=== PATIENT | male | born 1955 | race Caucasian/White ===

== ENCOUNTER 2024-12-11 16:40 | Emergency (ER) | payer MEDICARE, MEDICAID, SELFPAY ==
[2024-12-11 16:42] VITALS: BP 150/89; PULSE 83; RESP 20; TEMP 36.6; O2SAT 92
[2024-12-11 17:02] VITALS: PULSE 108; RESP 16; O2SAT 97
--- NOTE | 2024-12-11 17:33 | PC.NURSE ---
PT [facility]DIAA FROM [facility], FOR SEIZURE. PT HAS KNOOWN HX OF SEIZURES AND ON MEDICATION FOR THEM. PT IS GCS 15 UPON ASSUMPTION OF CARE, SEIZURE PRECAUTIONS INITIATED.
--- NOTE | 2024-12-11 17:44 | XR_ITS ---
Examination: AP chest single view TECHNIQUE: AP portable semiupright chest single view Date and time: December 11, 2024 1751 hours INDICATIONS: Seizure today. FINDINGS: Left base pneumonia retrocardiac, obscuring detail left hemidiaphragm Mild elevation right hemidiaphragm Subsegmental atelectasis right base Mild prominence left ventricle Mild vascular congestion Impression: Left base pneumonia, consider aspiration pneumonia
--- NOTE | 2024-12-11 17:44 | EKG_ITS ---
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
--- NOTE | 2024-12-11 17:45 | PD.EDSEIZ ---
ED Seizures RME/HPI General Chief Complaint: Seizure Stated Complaint: SIEZURE Time Seen by Provider: 12/11/24 16:49 Arrival date/time: 12/11/24 16:40 RME / HPI RME / HPI Narrative: 69-year-old male patient came in for evaluation regarding witnessed seizure. Apparently patient was sitting on a chair and tonic-clonic seizure lasting for few seconds, and patient fell forward. And patient developed forced ictal confusion. Patient does not remember what happened. When the EMS arrived patient is already alert and oriented x 3. On my evaluation patient is alert oriented x 3, told me that has been taking his seizure medication with good compliance. Patient complaining of posterior neck pain and headache. Patient denies any upper or lower extremity numbness or weakness. Denies any other complaints. Related Data Allergies Allergy/AdvReac Type Severity Reaction Status Date / Time No Known Allergies Allergy Verified 12/11/24 19:22 Review of Systems Review of Systems Narrative Review of Systems: Review of system reviewed and within normal limits except mentioned in HPI ED Exam Narrative Physical exam: VITAL SIGNS: Reviewed. GENERAL APPEARANCE: Alert and interactive, follows commands, no acute distress, HEAD AND FACE: Non-traumatic. ENT: PERRL, pink conjunctivitis, eyelid no trauma, Mucous membrane moist. NECK: Supple, posterior neck tenderness, midline neck tenderness, CHEST: No tenderness, no crepitus, no paradoxical movement, no retractions. LUNGS: Clear, well ventilated, symmetric, no rales, no wheezing, no ronchi, no stridor, good breath sounds bilaterally. HEART: Regular rate, regular rhythm, no murmur, no gallops. ABDOMEN: Soft, positive bowel sounds, nondistended, no guarding, nontender, no rebound, no masses, RECTAL: Deferred. GENITAL: Deferred. NEUROLOGICAL: Gross motor function intact sensory function intact, Appropriate for age. MUSCULOSKELETAL: low back nontender, full range of motion. EXTREMITIES: Nontender, full range of motion. SKIN: Color pink, dry, no rash, no lacerations, no abrasions, no contusions. LYMPHATICS: Deferred. Course Quality Measures none Orders Category Date Time Status CT Screening NOW Care 12/11/24 22:38 Completed EKG (ED ONLY) *Do not use* NOW Care 12/11/24 17:44 Completed Insert IV NOW Care 12/11/24 19:29 Completed Miscellaneous Nursing Order NOW Care 12/11/24 22:[address] angio carotid w head w Stat Exams 12/11/24 22:[address] cervical spine wo con Stat Exams 12/11/24 17:[address] head/brain wo con Stat Exams 12/11/24 17:48 Completed EKG (ED Only) Stat Exams 12/11/24 17:44 Draft XR chest 1V Stat Exams 12/11/24 17:44 Completed CBC Stat Lab 12/11/24 18:01 Completed Comprehensive Metabolic Panel Stat Lab 12/11/24 18:01 Completed Lactate (Lactic Acid) Stat Lab 12/11/24 18:01 Completed Partial Thromboplastin Time Stat Lab 12/11/24 18:01 Completed Path Review Blood Smear Stat Lab 12/11/24 18:01 Completed UA, C/S IF [Urinalysis, C/S if Indicated] Stat Lab 12/11/24 19:16 Completed Urine Culture Stat Lab 12/11/24 19:16 Received Morphine Inj Med 12/11/24 19:31 Discontinued 4 mg IVP X1 ONE Ondansetron Inj [Zofran Inj] Med 12/11/24 19:31 Discontinued 4 mg IVP X1 ONE cefTRIAXone/D5w 1gm IV premix [Rocephin/D5w 1gm IV Med 12/11/24 23:05 Discontinued premix] 1 gm in 50 ml IV NOW levETIRAcetam INJ [Keppra Inj] Med 12/11/24 21:58 Discontinued 1,000 mg IVP X1 ONE Vital Signs Vital signs: Vital Signs Temperature 97.9 F 12/11/24 16:42 Pulse Rate 83 12/11/24 16:42 Respiratory Rate 20 12/11/24 16:42 Blood Pressure 150/89 H 12/11/24 16:42 Pulse Oximetry (%) 92 L 12/11/24 16:42 Oxygen Delivery Method Room Air 12/11/24 16:42 Seizure MDM Narrative MDM Narrative:: 69-year-old male patient came in for evaluation regarding witnessed seizure. Apparently patient was sitting on a chair and tonic-clonic seizure lasting for few seconds, and patient fell forward. And patient developed forced ictal confusion. Patient does not remember what happened. When the EMS arrived patient is already alert and oriented x 3. On my evaluation patient is alert oriented x 3, told me that has been taking his seizure medication with good compliance. Patient complaining of posterior neck pain and headache. Patient denies any upper or lower extremity numbness or weakness. Denies any other complaints. Patient was placed on a hard collar right away. Patient was also given 1 g Keppra IV morphine and Zofran Clinically there is no neurologic deficit from neck down. CT scan of the head came back unremarkable. CT scan of the neck showed Acute fractures lateral mass of C1 extending to the anterior ring of C1 without significant displacement Plan of care discussed with the patient including transfer to higher level of care for C1 fracture Spoke with neurosurgeon from [facility], and told to order for CT angiogram of the head and neck to rule out vascular injury, according to the neurosurgeon, patient is nonsurgical candidate and the fracture is stable Care transferred to Dr. Burger for final disposition Patient data External records reviewed:: None Clinical information provided by:: patient and EMS Social determinants that could affect healthcare access:: none Patient has the following chronic illnesses:: Seizure disorder How is presenting disease/condition affected by chronic disease/condition?: caused by Evaluation data The following diagnostics were reviewed and interpreted by me:: lab results, radiology exam(s) and EKG tracing(s) Lab and/or radiology exams considered but not ordered:: None Interpretation Summary: EKG showed sinus rhythm, ventricular to 71 bpm, no ST segment ovation depression noted. Medications / Prescriptions Medications or Prescriptions considered but not ordered:: None Medication administrations:: Medication Administration History Discontinued Medications Ceftriaxone Sodium/Dextrose (Rocephin/D5w 1gm Iv Premix) 1 gm in 50 mls @ 100 mls/hr IV NOW ONE Stop: 12/11/24 23:34 Last Infusion: 12/11/24 23:49 Dose: Infused Documented By: Admin: 12/11/24 23:12 Dose: 100 mls/hr Documented By: BD Levetiracetam (Levetiracetam Inj 100 Mg/Ml Vial 5ml) 1,000 mg IVP X1 ONE Stop: 12/11/24 21:59 Last Admin: 12/11/24 22:15 Dose: 1,000 mg Documented By: BD Morphine Sulfate (Morphine Sulf Inj 10 Mg/Ml Vial) 4 mg IVP X1 ONE Stop: 12/11/24 19:32 Last Admin: 12/11/24 19:43 Dose: 4 mg Documented By: BD Ondansetron HCl (Ondansetron Inj 2 Mg/Ml Inj 2 Ml) 4 mg IVP X1 ONE; Protocol Stop: 12/11/24 19:32 Last Admin: 12/11/24 19:42 Dose: 4 mg Documented By: BD Morphine Caitie Franks Consultations Consultation(s) initiated? (list below): No Diagnosis Seizure Differential Diagnosis: other (Fall, breakthrough seizure, posterior neck pain) Most likely diagnosis given after review of the tests above:: C1 fracture, breakthrough seizure Admission Indicated Admission indicated?: not indicated Admission Request Was there a request for admission?: No Disposition Plan Disposition Plan: Transfer Discharge Plan Plan Patient Disposition: [facility] Facility Pt Being Transferred to: [facility] Service Needed for Transfer: Neurosurgery Prescriptions/Referrals Referrals: Monty Paulson MD [Primary Care Provider] - In 1 week Problem List Clinical Impression: C1 cervical fracture, Breakthrough seizure, Fall Patient/Caregiver Discharge Instructions Print Language: Kinyarwanda Stand Alone Forms: Clara Award Info., Patient Portal Info Letter
--- NOTE | 2024-12-11 17:48 | XR_ITS ---
Examination: CT brain head without contrast. 2-D sagittal coronal reconstructions Date and time of exam:December 11, 2024 1809 hours INDICATIONS: Patient fell today with the head, head pain CTDI: vol (mGy):56.5 DLP: (mGycm):1209 Technique: Multiple CT axial sections of the brain have been obtained, 5 mm slice thickness. Contrast has not been administered. 2-D sagittal, coronal reconstructions have been obtained Low dose protocols were performed. One or more of the following dose reduction techniques were used; automated exposure control, adjustment of the mA and/or KV according to patient size, use of iterative reconstruction technique. Findings: No significant ventricular enlargement. Intra-axial or extra-axial hemorrhage density is not seen. No mass effect or midline shift Basal cisterns are not remarkable. Fourth ventricle is midline. Cranial vault intact. Impression: Negative for acute hemorrhage, mass effect or midline shift Please see the CT cervical spine report today
--- NOTE | 2024-12-11 17:48 | XR_ITS ---
Examination: CT cervical spine without contrast 2-D sagittal reconstructions 2-D coronal reconstructions 3-D reconstructions. Exam date and time:December 11, 2024 1814 hours INDICATIONS: Ground-level fall today with injury to the neck, neck pain CTDI:vol (mGy) 11.4 DLP: (mGycm) 293 Technique: Multiple 2 mm axial sections of the cervical spine have been obtained. The coronal and sagittal reconstructions have been obtained. 3-D reconstructions have been obtained. Low dose protocols were performed. One or more of the following dose reduction techniques were used; automated exposure control, adjustment of the mA and/or KV according to patient size, use of iterative reconstruction technique. Findings: Fracture of the lateral mass of C1, axial image 39, without displacement This fracture extends to the anterior ring of C1 axial image 32 No cervical vertebral body compression fracture Alignment of the vertebral bodies is satisfactory No bone fragments in the canal Alignment of the posterior spinous processes intact IMPRESSION: Acute fractures lateral mass of C1 extending to the anterior ring of C1 without significant displacement
[2024-12-11 18:09] LABS: Lactate (Lactic Acid) 1.4 mMol/L (0.4-2.0)
[2024-12-11 18:14] LABS: Basophils % (Auto) 0 % (0-2.5); Eosinophils % (Auto) 0 % (0-10); Hematocrit 36.2 % (41.0-53.0); Hemoglobin 12.7 g/dL (13.5-16.0); Immature Granulocytes % (Auto) 0 % (0-0); Immature Granulocytes Auto 0.03 Thou/mm3 (0.00-0.00); Lymphocytes # (Auto) 5.8 Thou/mm3 (1.0-4.8); Lymphocytes % (Auto) 54 % (10-50); Mean Corpuscular HGB Conc 35.1 g/dl (31.0-37.0); Mean Corpuscular Hemoglobin 32.3 pg (25.0-35.0); Mean Corpuscular Volume 92 fL (80-100); Monocytes # (Auto) 0.7 Thou/mm3 (0.0-0.8); Monocytes % (Auto) 6 % (0-12); Neutrophils # (Auto) 4.3 Thou/mm3 (1.8-7.7); Neutrophils % (Auto) 40 % (37-80); Nucleated Red Blood Cell % 0 /100 WBC (0); Platelet Count 142 Thou/mm3 (140-440); RDW Standard Deviation 46.9 fL (35.1-43.9); Red Blood Count 3.93 Miln/mm3 (4.50-5.90); White Blood Count 10.9 Thou/mm3 (3.8-10.6)
[2024-12-11 18:27] LABS: Partial Thromboplastin Time 27.3 Seconds (22.0-36.0)
[2024-12-11 18:30] LABS: Alanine Aminotransferase 27 U/L (10-49); Albumin, Serum 3.8 gm/dL (3.4-4.8); Albumin/Globulin Ratio 1.5 (1.2-2.2); Alkaline Phosphatase 112 U/L (46-116); Anion Gap 5 (7-16); Aspartate Amino Transferase 29 U/L (0-34); BUN/Creatinine Ratio 11 Ratio (12-20); Bilirubin,Total 0.3 mg/dL (0.3-1.2); Blood Urea Nitrogen 11 mg/dL (9-23); Calcium 8.5 mg/dL (8.3-10.6); Calcium (Corrected) 8.7 mg/dL (8.5-10.1); Carbon Dioxide 28.7 mMol/L (20.0-31.0); Chloride 98 mMol/L (98-107); Globulin 2.5 gm/dL (2.3-3.5); Glucose 120 mg/dL (74-106); Osmolality,Calculated 264 (275-295); Potassium 4.7 mMol/L (3.4-5.1); Sodium 132 mMol/L (136-145); Total Protein 6.3 gm/dL (5.7-8.2); eGFR > 60 See Note
[2024-12-11 18:48] VITALS: BP 141/101; PULSE 75; RESP 18; TEMP 36.4; O2SAT 99
[2024-12-11 19:19] LABS: Path Review Blood Smear Sent to Pathologist
[2024-12-11 19:27] LABS: Collection Type, Urine Clean Catch
--- NOTE | 2024-12-11 19:31 | PC.NURSE ---
pt complaining 9/10 pain in neck advised direct mail clerk denise
[2024-12-11 19:34] LABS: Bacteria,Urine 1+; Bilirubin,Urine Negative (Negative); Blood,Urine Negative (Negative); Clarity,Urine Clear (Clear/Hazy); Color,Urine Colorless (Lt Yel-Yel); Glucose, Urine Negative (Negative); Hyaline Casts,Urine 1 /hpf (0-1); Ketones,Urine Negative (Negative); Leukocyte Esterase,Urine Positive (Negative); Nitrite,Urine Negative (Negative); PH,Urine 6.5 (5.0-7.0); Protein,Urine Negative (Neg - Trace); RBC,Urine 2 /hpf (0-3); Specific Gravity,Urine 1.012 (1.001-1.035); Squamous Epithelial Cell,Urine < 1 /hpf (0-5); Urobilinogen,Urine Negative mg/dL (0.0-1.0); WBC,Urine 26 /hpf (0-5)
[2024-12-11] MEDS: ONDANSETRON INJ 2 MG/ML INJ 2 ML 4 MG IVP (19:42)
[2024-12-11 19:43] LABS: Culture Indicated,Urine Yes
[2024-12-11] MEDS: MORPHINE SULF INJ 10 MG/ML VIAL 4 MG IVP (19:43)
[2024-12-11 20:17] VITALS: BP 124/83; PULSE 60; RESP 18; TEMP 36.4; O2SAT 99
[2024-12-11 22:00] VITALS: BP 131/79; PULSE 58; RESP 11; TEMP 36.9; O2SAT 96
--- NOTE | 2024-12-11 22:04 | PC.NURSE ---
2199 daniela contacted pkt sent, louis walker speaking with tn.
[2024-12-11] MEDS: levETIRAcetam INJ 100 MG/ML VIAL 5ML 1000 MG IVP (22:15)
--- NOTE | 2024-12-11 22:49 | PD.EDADDENDU ---
Emergency Room Addendum <Sandra Bianchi - Last Filed: 12/11/24 23:39> Addendum Narrative: 2300: Care assumed from [facility] (emergency mid-level provider). Past medical, surgical, social and family history reviewed. Vitals and home medications reviewed. Results and treatment plan discussed. I will assume the care of the patient at this time and will follow the patient, pending transfer. 2246: 69 y/o male with Hx of Epilepsy presents to ED ? seizure at home causing him to fall forward on face and on his way to ED c/o neck pain. Scanned brain and neck. Head/Brain CT is unremarkable. Neck CT shows acute fractures lateral mass of C1 extending to the anterior ring of C1 w/o significant displacement. 2249: Spoke with Dr.l Martins at [facility]. Dr. Martins made aware of the patient?s HPI, PMHx, lab and/or radiology results. Discussed treatment plan and accepted patient for transfer, ED to ED. <Lu Burger MD - Last Filed: 12/11/24 23:21> Addendum Narrative: 2044: Care assumed from [facility] (emergency mid-level provider). Past medical, surgical, social and family history reviewed. Vitals and home medications reviewed. Results and treatment plan discussed. I will assume the care of the patient at this time and will follow the patient, pending transfer. 2046: Patient is GCS 15, has a history of epilepsy, usually speaks with slow slurred speech per the patient. 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 He takes phenobarbital has been taking his medications as prescribed. Despite this had a breakthrough seizure resulting in him landing face forward hitting his head resulting in neck pain. Came in by ambulance. Prior provider evaluated patient ordered labs CT brain, CT cervical spine, placed patient in c-collar. Labs without any acute significant hematologic or metabolic abnormality. Urinalysis with evidence of infection. Provided antibiotics here. Patient does not have any allergies to medications. CT brain unremarkable, CT cervical spine shows a C1 fracture. On my evaluation, patient hemodynamically stable not in distress, pain well-controlled. Has intact sensation and strength in all 4 extremities. No difficulty breathing. Patient in a c-collar, and spinal precautions. Advised patient not to move given his fracture. Prior provider attempted to transfer patient spoke with [facility] requested CT angio of the neck. Prior provider also spoke to [facility] that requested that we reach out to other facilities given that they are infected at this time. We will reach out to [facility]. Patient is not on any blood thinners. Patient usually takes 500keppra po bid, phenobarbital 64.8 mg p.o. nightly for seizures. Also takes aripiprazole 10 mg p.o. daily. Patient states that he took his Keppra and phenobarbital today. Spoke to the nurse at the retirement where he lives at her name is Doris [phone], confirmed his medications, states that he usually ambulates with a walker has been having a hard time walking at baseline and has been working with physical therapy. Per Doris it is unclear why patient has difficulties with ambulation however has been making improvements with physical therapy. Prior to the breakthrough seizure patient had been doing fine. Patient has been at this retirement for 2 months and had not had a breakthrough seizure up until today. 2250: I spoke with Dr. Martins at [facility] accepted patient, ED to ED.
--- NOTE | 2024-12-11 22:54 | PC.NURSE ---
THIS PT IS ACCEPTED TO [facility] BY DR. CORCORAN. THIS IS A ER:ER TRANSFER AND NUMBER FOR REPORT IS [phone]. JESSIKA WAS THE FACILITY REP I SPOKE WITH FOR ACCEPTING INFORMATION.
[2024-12-11 23:00] VITALS: BP 108/73; PULSE 111; RESP 12; TEMP 36.9; O2SAT 96
[2024-12-11] MEDS: cefTRIAXone/D5w 1gm IV premix 1 GM/50 ML BAG IV (23:12)
== END 2024-12-12 00:33 | disposition short-term general hospital (02) ==
PROVIDERS: Nurse Practitioner Family; Emergency Provider Emergency Medicine; PCP Family Medicine
DX: G40.909 Epilepsy, unspecified, not intractable, without status epilepticus (principal); S12.041A Nondisplaced lateral mass fracture of first cervical vertebra, initial encounter for closed fracture; W18.30XA Fall on same level, unspecified, initial encounter; R51.9 Headache, unspecified; R94.31 Abnormal electrocardiogram [ECG] [EKG]
CPT/HCPCS: 36415; 70450; 71045; 72125; 80053; 81001; 83605; 85025; 85730; 87077; 87086; 87186; 93005; 96365; 96375; 99285; J0696; J1953; J2270; J2405

== ENCOUNTER → 2025-02-10 | Outpatient (CLI) | payer MEDICARE, MEDICAID, SELFPAY ==
--- NOTE | 2025-02-10 10:17 | XR_ITS ---
EXAMINATION: Cervical spine, 5 views Technique: Cervical spine AP, AP odontoid, lateral, bilateral obliques, 5 views Exam date and time: February 10, 2025 1024 hours INDICATIONS: CT cervical spine December 11, 2024 acute fracture lateral mass C1 extending to the anterior ring of C1 without significant displacement FINDINGS: Satisfactory alignment cervical vertebral bodies on the lateral view The odontoid appears intact Satisfactory alignment of the posterior spinous processes IMPRESSION: Recommend CT scan cervical spine follow-up to best assess stability and healing of C1 fractures noted on the CT cervical spine December 11, 2024
== END | disposition home or self-care (01) ==
PROVIDERS: PCP Family Medicine; Referring Provider Family Medicine; Visit Provider Family Medicine
DX: S12.000A Unspecified displaced fracture of first cervical vertebra, initial encounter for closed fracture (principal); X58.XXXA Exposure to other specified factors, initial encounter
CPT/HCPCS: 72050

== ENCOUNTER 2025-03-12 07:19 | Emergency (ER) | payer MEDICARE, MEDICAID, SELFPAY ==
[2025-03-12 07:22] VITALS: PULSE 98; RESP 18; O2SAT 99; BMI 37.6
--- NOTE | 2025-03-12 07:31 | EKG_ITS ---
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
[2025-03-12 07:32] VITALS: BP 125/80; PULSE 68; RESP 18; TEMP 36.5; O2SAT 97
[2025-03-12 07:49] VITALS: PULSE 74
--- NOTE | 2025-03-12 07:49 | XR_ITS ---
Examination: CT cervical spine without contrast 2-D sagittal reconstructions 2-D coronal reconstructions 3-D reconstructions. Exam date and time:March 12, 2025 0831 hours INDICATIONS: History C1 fracture December 11, 2024, fracture lateral mass of C1 extending into the anterior ring of C1 December 11, 2024 CTDI:vol (mGy) 19.2 DLP: (mGycm) 155 Technique: Multiple 2 mm axial sections of the cervical spine have been obtained. The coronal and sagittal reconstructions have been obtained. 3-D reconstructions have been obtained. Low dose protocols were performed. One or more of the following dose reduction techniques were used; automated exposure control, adjustment of the mA and/or KV according to patient size, use of iterative reconstruction technique. Findings: Partial healing fracture anterior ring C1, axial image 26, the fracture extending into the lateral mass of C1 axial image 28 Stable alignment No vertebral body compression fracture Satisfactory alignment cervical vertebral bodies as well as posterior spinous processes IMPRESSION: Partial healing fractures anterior ring C1 on the right, the fracture extending into the lateral mass of C1 on the right, stable alignment
--- NOTE | 2025-03-12 07:49 | XR_ITS ---
Examination: AP chest single view Technique one AP portable semiupright chest single view Date and time: March 12, 2025 0755 hrs., Comparison 12/11/2024 Indications: Ground-level fall today with coughing and chest pain Findings: Left infrahilar opacity consistent with pneumonia Mild to moderate elevation right hemidiaphragm No pneumothorax Normal heart size Thoracic upper dextroscoliosis thoracolumbar levoscoliosis Clavicles ribs appear intact Impression: Suspicious for left infrahilar pneumonia
--- NOTE | 2025-03-12 07:49 | XR_ITS ---
Examination: CT brain head without contrast. 2-D sagittal coronal reconstructions Date and time of exam:March 12, 2025 0831 hours, comparison December 11, 2024 INDICATIONS: Ground-level fall today with injury to the head, head pain CTDI: vol (mGy):60.9 DLP: (mGycm):1369 Technique: Multiple CT axial sections of the brain have been obtained, 5 mm slice thickness. Contrast has not been administered. 2-D sagittal, coronal reconstructions have been obtained Low dose protocols were performed. One or more of the following dose reduction techniques were used; automated exposure control, adjustment of the mA and/or KV according to patient size, use of iterative reconstruction technique. Findings: No significant ventricular enlargement. Intra-axial or extra-axial hemorrhage density is not seen. No mass effect or midline shift Basal cisterns are not remarkable. Fourth ventricle is midline. Cranial vault intact. Impression: Negative for acute hemorrhage, mass effect or midline shift Please see the CT cervical spine report
[2025-03-12] MEDS: SODIUM CHLORIDE 0.9% 1000 ML 1,000 ML 999 ML IV (08:16)
[2025-03-12] MEDS: levETIRAcetam INJ 100 MG/ML VIAL 5ML 1000 MG IVP (08:17)
[2025-03-12 09:38] LABS: Collection Type, Urine Clean Catch
[2025-03-12 09:39] LABS: Basophils # (Auto) 0.0 Thou/mm3 (0.0-0.2); Basophils % (Auto) 0 % (0-2.5); Eosinophils # (Auto) 0.0 Thou/mm3 (0.0-0.5); Eosinophils % (Auto) 0 % (0-10); Hematocrit 36.6 % (41.0-53.0); Hemoglobin 12.9 g/dL (13.5-16.0); Immature Granulocytes Auto 0.02 Thou/mm3 (0.00-0.00); Lymphocytes # (Auto) 7.2 Thou/mm3 (1.0-4.8); Lymphocytes % (Auto) 61 % (10-50); Mean Corpuscular HGB Conc 35.2 g/dl (31.0-37.0); Mean Corpuscular Hemoglobin 32.1 pg (25.0-35.0); Mean Corpuscular Volume 91 fL (80-100); Monocytes # (Auto) 0.9 Thou/mm3 (0.0-0.8); Monocytes % (Auto) 8 % (0-12); Neutrophils # (Auto) 3.6 Thou/mm3 (1.8-7.7); Neutrophils % (Auto) 31 % (37-80); Nucleated Red Blood Cell # 0.00 Thou/mm3 (0.00-0.00); Nucleated Red Blood Cell % 0 /100 WBC (0); Platelet Count 124 Thou/mm3 (140-440); RDW Standard Deviation 43.3 fL (35.1-43.9); Red Blood Count 4.02 Miln/mm3 (4.50-5.90); White Blood Count 11.8 Thou/mm3 (3.8-10.6)
[2025-03-12 09:43] LABS: Bilirubin,Urine Negative (Negative); Blood,Urine Negative (Negative); Clarity,Urine Clear (Clear/Hazy); Color,Urine Colorless (Lt Yel-Yel); Glucose, Urine Negative (Negative); Hyaline Casts,Urine < 1 /hpf (0-1); Ketones,Urine Negative (Negative); Leukocyte Esterase,Urine Negative (Negative); Nitrite,Urine Negative (Negative); PH,Urine 7.0 (5.0-7.0); Protein,Urine Negative (Neg - Trace); RBC,Urine 1 /hpf (0-3); Specific Gravity,Urine 1.006 (1.001-1.035); Squamous Epithelial Cell,Urine < 1 /hpf (0-5); Urobilinogen,Urine Negative mg/dL (0.0-1.0); WBC,Urine < 1 /hpf (0-5)
[2025-03-12 10:00] LABS: INR 1.0 (0.9-1.3); Prothrombin Time 10.6 Seconds (9.0-12.2)
[2025-03-12 10:06] LABS: Alanine Aminotransferase 22 U/L (10-49); Albumin, Serum 3.8 gm/dL (3.4-4.8); Albumin/Globulin Ratio 1.6 (1.2-2.2); Alkaline Phosphatase 110 U/L (46-116); Anion Gap 8 (7-16); Aspartate Amino Transferase 27 U/L (0-34); BUN/Creatinine Ratio 14 Ratio (12-20); Bilirubin,Total 0.6 mg/dL (0.3-1.2); Blood Urea Nitrogen 11 mg/dL (9-23); Calcium 9.0 mg/dL (8.3-10.6); Calcium (Corrected) 9.2 mg/dL (8.5-10.1); Carbon Dioxide 28.4 mMol/L (20.0-31.0); Chloride 96 mMol/L (98-107); Creatinine (Component) 0.8 mg/dL (0.6-1.3); Estimated Creatinine Clearance 112.4 mL/min (>60); Globulin 2.4 gm/dL (2.3-3.5); Glucose 92 mg/dL (74-106); Osmolality,Calculated 263 (275-295); Potassium 4.4 mMol/L (3.4-5.1); Sodium 132 mMol/L (136-145); Total Protein 6.2 gm/dL (5.7-8.2); eGFR > 60 See Note
--- NOTE | 2025-03-12 11:14 | EDNOTE_ITS ---
ED Seizures RME/HPI General Chief Complaint: Seizure Stated Complaint: SEIZURES Time Seen by Provider: 03/12/25 07:43 Arrival date/time: 03/12/25 07:19 Limitations: no limitations RME / HPI RME / HPI Narrative: 69 year old male with history of seizures presents to the ED BIBA from intermediate for evaluation following a seizure. Per medics, intermediate staff witnessed the seizure and described as tonic-clonic, lasting ~ 1 minute. No falls or injuries reported. retirement staff do report the patient had a ground level fall several months ago and diagnosed with a C1 fracture. State patient has worn a neck brace since. Related Data Allergies Allergy/AdvReac Type Severity Reaction Status Date / Time No Known Allergies Allergy Verified 12/11/24 19:22 Review of Systems Review of Systems Systems Reviewed: All systems reviewed, normal except as documented Past Medical History Past Medical History NEUROLOGIC: Positive Neurological Disorders and Epilepsy OTHER HISTORY: Positive Falls Social History SMOKING STATUS: Never smoker ED Exam General Limitations: Present no limitations General appearance: Present alert and in no apparent distress Head Head exam: Present atraumatic, normocephalic and normal inspection Eye Eye exam: Present normal appearance, PERRL and EOMI ENT ENT exam: Present normal exam, normal oropharynx and mucous membranes moist Neck Neck exam: Present trachea midline and other (Neck brace in place ) Chest Chest inspection: Present normal inspection and symmetric chest wall rise Respiratory Respiratory exam: Present normal lung sounds bilaterally Cardiovascular Cardiovascular exam: Present regular rate, normal rhythm and normal heart sounds Abdominal Exam Abdominal exam: Present soft and normal bowel sounds Extremities Exam Extremities exam: Present normal inspection and full ROM Back Exam Back exam: Present normal inspection and full ROM Neurological Exam Neurological exam: Present alert, oriented X3 and CN II-XII intact Psychiatric Psychiatric exam: Present normal affect and normal mood Skin Skin exam: Present warm, dry, intact and normal color Course Quality Measures none Orders Category Date 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 03/12/25 07:49 Active Continuous Pulse Oximetry NOW Care 03/12/25 07:49 Completed EKG (ED ONLY) *Do not use* NOW Care 03/12/25 07:31 Completed Insert IV NOW Care 03/12/25 07:[address] cervical spine wo con Stat Exams 03/12/25 07:[address] head/brain wo con Stat Exams 03/12/25 07:49 Completed EKG (ED Only) Stat Exams 03/12/25 07:31 Draft XR chest 1V portable Stat Exams 03/12/25 07:49 Completed CBC Stat Lab 03/12/25 09:00 Completed Comprehensive Metabolic Panel Stat Lab 03/12/25 09:00 Completed Prothrombin Time with INR Stat Lab 03/12/25 09:00 Completed Urinalysis Stat Lab 03/12/25 09:35 Completed Urine Culture Stat Lab 03/12/25 09:35 Received Sodium Chloride 0.9% 1000 ml [Ns] 1,000 ml Med 03/12/25 07:49 Discontinued IV 999 mls/hr levETIRAcetam INJ [Keppra Inj] Med 03/12/25 07:49 Discontinued 1,000 mg IVP X1 ONE Oxygen Delivery NOW RT 03/12/25 07:49 Active Vital Signs Vital signs: Vital Signs Temperature 97.7 F 03/12/25 07:32 Pulse Rate 68 03/12/25 07:32 Respiratory Rate 18 03/12/25 07:32 Blood Pressure 125/80 03/12/25 07:32 Pulse Oximetry (%) 97 03/12/25 07:32 Oxygen Delivery Method Room Air 03/12/25 07:32 Pulse ox is 97% on room air which is adequate. Seizure MDM Narrative MDM Narrative:: Lillian Tomlinson am scribing for and in the presence of Dr. Lamas. Patient data External records reviewed:: [facility] previous records (I reviewed ED visit on 12/11/2024 ) and EMS form Clinical information provided by:: patient Social determinants that could affect healthcare access:: none Patient has the following chronic illnesses:: Seizures How is presenting disease/condition affected by chronic disease/condition?: exacerbated by Evaluation data The following diagnostics were reviewed and interpreted by me:: lab results, radiology exam(s) and EKG tracing(s) (EKG @ 7:31 AM sinus rhythm with first degree AV block, rate 68, borderline left axis deviation. ) Lab and/or radiology exams considered but not ordered:: None Interpretation Summary: Ordering Physician: Tad Lamas MD Date of Service: 03/12/25 Procedure(s): CT cervical spine wo con Accession Number(s): [id number] cc: Tad Lamas MD; Harrison Kearney MD~ Examination: CT cervical spine without contrast 2-D sagittal reconstructions 2-D coronal reconstructions 3-D reconstructions. Exam date and time:March 12, 2025 0831 hours INDICATIONS: History C1 fracture December 11, 2024, fracture lateral mass of C1 extending into the anterior ring of C1 December 11, 2024 CTDI:vol (mGy) 19.2 DLP: (mGycm) 155 Technique: Multiple 2 mm axial sections of the cervical spine have been obtained. The coronal and sagittal reconstructions have been obtained. 3-D reconstructions have been obtained. Low dose protocols were performed. One or more of the following dose reduction techniques were used; automated exposure control, adjustment of the mA and/or KV according to patient size, use of iterative reconstruction technique. Findings: Partial healing fracture anterior ring C1, axial image 26, the fracture extending into the lateral mass of C1 axial image 28 Stable alignment No vertebral body compression fracture Satisfactory alignment cervical vertebral bodies as well as posterior spinous processes IMPRESSION: Partial healing fractures anterior ring C1 on the right, the fracture extending into the lateral mass of C1 on the right, stable alignment Dictated By: Harrison Kearney MD Signed By: <Electronically signed by Harrison Kearney MD in OV> 03/12/25 0951 Ordering Physician: Tad Lamas MD Date of Service: 03/12/25 Procedure(s): XR chest 1V portable Accession Number(s): [id number] cc: Tad Lamas MD; Harrison Kearney MD~ Examination: AP chest single view Technique one AP portable semiupright chest single view Date and time: March 12, 2025 0755 hrs., Comparison 12/11/2024 Indications: Ground-level fall today with coughing and chest pain Findings: Left infrahilar opacity consistent with pneumonia Mild to moderate elevation right hemidiaphragm No pneumothorax Normal heart size Thoracic upper dextroscoliosis thoracolumbar levoscoliosis Clavicles ribs appear intact Impression: Suspicious for left infrahilar pneumonia Dictated By: Harrison Kearney MD Signed By: <Electronically signed by Harrison Kearney MD in OV> 03/12/25 0814 Ordering Physician: Tad Lamas MD Date of Service: 03/12/25 Procedure(s): CT head/brain wo [facility] Accession Number(s): [id number] cc: Tad Lamas MD; Harrison Kearney MD~ Examination: CT brain head without contrast. 2-D sagittal coronal reconstructions Date and time of exam:March 12, 2025 0831 hours, comparison December 11, 2024 INDICATIONS: Ground-level fall today with injury to the head, head pain CTDI: vol (mGy):60.9 DLP: (mGycm):1369 Technique: Multiple CT axial sections of the brain have been obtained, 5 mm slice thickness. Contrast has not been administered. 2-D sagittal, coronal reconstructions have been obtained Low dose protocols were performed. One or more of the following dose reduction techniques were used; automated exposure control, adjustment of the mA and/or KV according to patient size, use of iterative reconstruction technique. Findings: No significant ventricular enlargement. Intra-axial or extra-axial hemorrhage density is not seen. No mass effect or midline shift Basal cisterns are not remarkable. Fourth ventricle is midline. Cranial vault intact. Impression: Negative for acute hemorrhage, mass effect or midline shift Please see the CT cervical spine report Dictated By: Harrison Kearney MD Signed By: <Electronically signed by Harrison Kearney MD in OV> 03/12/25 0953 Medications / Prescriptions Medications or Prescriptions considered but not ordered:: None Medication administrations:: Medication Administration History Discontinued Medications Sodium Chloride (Ns) 1,000 mls @ 999 mls/hr IV .Q1H1M ONE Stop: 03/12/25 08:49 Last Infusion: 03/12/25 10:28 Dose: Infused Documented By: Admin: 03/12/25 08:16 Dose: 999 mls/hr Documented By: WILIAM Levetiracetam (Levetiracetam Inj 100 Mg/Ml Vial 5ml) 1,000 mg IVP X1 ONE Stop: 03/12/25 07:50 Last Admin: 03/12/25 08:17 Dose: 1,000 mg Documented By: WILIAM See above Consultations Consultation(s) initiated? (list below): No Diagnosis Seizure Differential Diagnosis: intractable seizure disorder, focal seizure, generalized seizure and epileptic seizure Most likely diagnosis given after review of the tests above:: Epileptic seizure Admission Indicated Admission indicated?: not indicated Admission Request Was there a request for admission?: No Disposition Plan Disposition Plan: Discharge Discharge Attestation Discharge Attestation: The patient and all family members were given an opportunity to ask questions and understood the discharge instructions. Discharge instructions specifically effects, indications for sooner follow up or return to the emergency department, and the expected course of current diagnosis. Patient condition: Stable Discharge Plan Plan Patient Disposition: HOME (Self Care) Patient condition on transfer: Stable Prescriptions/Referrals Referrals: Monty Paulson MD [Primary Care Provider, Family Practice] - In 1 week Problem List Clinical Impression: Epileptic seizure Patient/Caregiver Discharge Instructions Discharge Activity: activity as tolerated Additional Instructions: Continue wearing your cervical collar until you see your physician. Continue your usual medications as prescribed. Print Language: Malay Stand Alone Forms: Clara Award Info., Patient Portal Info Letter
[2025-03-12 11:23] VITALS: BP 149/95; PULSE 88; RESP 16; TEMP 36.6; O2SAT 100
== END 2025-03-12 11:41 | disposition home or self-care (01) ==
PROVIDERS: Emergency Provider Family Medicine; PCP Family Medicine
DX: G40.909 Epilepsy, unspecified, not intractable, without status epilepticus (principal); S09.90XA Unspecified injury of head, initial encounter; S12.040D Displaced lateral mass fracture of first cervical vertebra, subsequent encounter for fracture with routine healing; W19.XXXD Unspecified fall, subsequent encounter; R05.9 Cough, unspecified; I44.0 Atrioventricular block, first degree; I49.1 Atrial premature depolarization; R07.9 Chest pain, unspecified; W18.30XA Fall on same level, unspecified, initial encounter
CPT/HCPCS: 36415; 70450; 71045; 72125; 80053; 81001; 85025; 85610; 87086; 93005; 96361; 96374; 99284; J1953; J7030

== ENCOUNTER 2025-04-01 20:27 | Emergency (ER) | payer MEDICARE, MEDICAID, SELFPAY ==
--- NOTE | 2025-04-01 20:28 | PD.EDSEIZ ---
ED Seizures RME/HPI General Stated Complaint: SEIZURE Time Seen by Provider: 04/01/25 20:47 Arrival date/time: 04/01/25 20:27 RME / HPI RME / HPI Narrative: See [facility] for Dr. Dill's HPI documentation. Related Data Previous Rx's ?Medication ?Instructions ?Recorded levetiracetam 1,000 mg tablet 1,000 mg PO BID #60 tabs 04/01/25 (Keppra) Allergies Allergy/AdvReac Type Severity Reaction Status Date / Time No Known Allergies Allergy Verified 04/01/25 20:55 Review of Systems Review of Systems Systems Reviewed: All systems reviewed, normal except as documented Past Medical History Past Medical History NEUROLOGIC: Positive Neurological Disorders and Epilepsy CARDIAC: Negative Cardiac Disorders, Congestive Heart Failure or Hypertension RESPIRATORY: Negative Chronic Obstructive Pulmonary Disease (COPD) or Asthma GENITOURINARY: Negative Renal Disease ENDOCRINE: Negative Diabetes Mellitus Type 1 or Diabetes Mellitus Type 2 HEMATOLOGIC: Negative Sickle Cell Disease OTHER HISTORY: Positive Falls Social History SMOKING STATUS: Never smoker ED Exam Narrative Physical exam: See [facility] for Dr. Dill's physical exam documentation. Course Quality Measures none Orders Category Date Time Status Bedside COVID-19 Antigen Test NOW Care 04/01/25 20:36 Completed EKG (ED ONLY) *Do not use* NOW Care 04/01/25 20:37 Completed Saline [Insert IV] NOW Care 04/01/25 20:[address] cervical spine wo con Stat Exams 04/01/25 20:[address] head/brain wo con Stat Exams 04/01/25 20:37 Completed EKG (ED Only) Stat Exams 04/01/25 20:37 Draft XR chest 1V portable Stat Exams 04/01/25 20:37 Completed Alcohol, Blood Medical Stat Lab 04/01/25 20:43 Completed BNP [B-Type Natriuretic Peptide] Stat Lab 04/01/25 20:43 Completed Bilirubin,Direct Stat Lab 04/01/25 20:43 Completed CBC Stat Lab 04/01/25 20:43 Completed CMP [Comprehensive Metabolic Panel] Stat Lab 04/01/25 20:43 Completed Drug Screen,Urine Stat Lab 04/01/25 22:42 Completed Influenza A & B Rapid Panel Stat Lab 04/01/25 22:49 Completed Magnesium Stat Lab 04/01/25 20:43 Completed TSH [Thyroid Stimulating Hormone] Stat Lab 04/01/25 20:43 Completed Troponin I Stat Lab 04/01/25 20:43 Completed UA, C/S IF [Urinalysis, C/S if Indicated] Stat Lab 04/01/25 22:42 Completed ACETAMINOPHEN w/COD 300-30 [Tylenol w/Cod #3] Med 04/01/25 20:36 Discontinued 2 tab PO X1 ONE Ketorolac Inj [Toradol Inj] Med 04/01/25 20:36 Discontinued 15 mg IVP X1 ONE Ondansetron Inj [Zofran Inj] Med 04/01/25 20:36 Discontinued 4 mg IVP X1 ONE Sodium Chloride 0.9% 1000 ml [Ns] 1,000 ml Med 04/01/25 20:36 Discontinued IV 999 mls/hr levETIRAcetam INJ [Keppra Inj] Med 04/01/25 20:36 Discontinued 2,000 mg IVP X1 ONE Vital Signs Vital signs: Vital Signs Temperature 96.7 F L 04/01/25 20:33 Pulse Rate 93 04/01/25 20:33 Respiratory Rate 20 04/01/25 20:33 Blood Pressure 153/84 H 04/01/25 20:33 Pulse Oximetry (%) 94 L 04/01/25 20:33 Oxygen Delivery Method Room Air 04/01/25 20:33 Seizure MDM Narrative MDM Narrative:: This section includes all my notes and documentations, including HPI, PE, and ED course. Sage Dill MD HPI: 70-year-old male here to be evaluated after a seizure just [employer]. He has history of seizures. Lives in a nursing home. He was found in bed and active seizure. Has been compliant with his seizure medications. He did not fall out of bed. He wears cervical collar due to recent C1 fracture. No speech or visual impairment. No loss of power in the arms or legs. No other complaints. ROS: All negative except as documented in HPI. Physical Exam: General:? Alert and oriented.? No acute distress.? Eyes:? Conjunctivae and lids clear.? EOMI.? PERRL. ENT:? No signs of head trauma. Neck:? Supple.? No tenderness. Heart:? RRR. Lungs:? No respiratory distress.? Good air movement.? No rhonchi, wheezing, rales.? Chest:? No tenderness. Abdomen:? Soft and nontender.? Normal bowel sounds.? No distension.? No rebound or guarding.? Back:? No tenderness.? Skin:? Warm and dry.? Neuro:? Alert and oriented X 3.? Cranial Nerves II-XII grossly intact.? No peripheral motor deficits. Musculoskeletal:? All major joints and bones are not tender with no limited ROM. I reviewed EMS notes. I reviewed all diagnostic test results. My interpretation of the EKG is sinus rhythm with nonspecific ST-T changes. My interpretation of the chest x-ray is NAD. My review of the CT head report is NAD. My review of the CT cervical spine report is partially healing fracture anterior ring C1. Blood/urine tests unremarkable. COVID/influenza negative. At this point, diagnoses include: Recurrent seizure Stable C1 cervical fracture Treatment here included: Tylenol with Codeine X 2 IV fluid Toradol 15 mg IV Keppra 2000 mg IV Zofran 4 mg IV Patient remained stable. Recommended outpatient management. Based on my best medical judgment, made decision no further evaluation or treatment indicated at this time. Patient understands and agrees to the discharge instructions customized and printed, see below. Discharge Instructions from Dr. Dill printed for you: 1. Increase Keppra to 1000 mg twice daily to prevent recurrent seizures. 2. Wear the neck brace until cleared by a doctor taking care of you. Your C1 neck fracture is stable. 3. See a private doctor on 04/02/2025 for recheck and further care. Ask to review all test results and official radiology reports, to make sure you receive all necessary follow-ups and monitoring. Ask for referral to see neurologist for your recurrent seizures and neck network diagnostic support specialist for your neck fracture. 4. Seek immediate medical care with worsening or with any concerns. Sage Dill MD Patient data External records reviewed:: [facility] previous records (Per chart review, patient was seen here on 03/12/25 for epileptic seizure.) and EMS form Clinical information provided by:: EMS Social determinants that could affect healthcare access:: none Patient has the following chronic illnesses:: epilepsy How is presenting disease/condition affected by chronic disease/condition?: caused by Evaluation data The following diagnostics were reviewed and interpreted by me:: lab results, radiology exam(s) and EKG tracing(s) (My interpretation of the EKG is: Sinus rhythm (91 bpm) with nonspecific ST-T changes. Sage Dill MD) Lab and/or radiology exams considered but not ordered:: none Interpretation Summary: I reviewed all diagnostic test results. My interpretation of the EKG is sinus rhythm with nonspecific ST-T changes. My interpretation of the chest x-ray is NAD. My review of the CT head report is NAD. My review of the CT cervical spine report is partially healing fracture anterior ring C1. Blood/urine tests unremarkable. COVID/influenza negative.. Medications / Prescriptions Medications or Prescriptions considered but not ordered:: none Medication administrations:: Medication Administration History Discontinued Medications Acetaminophen/Codeine Phosphate (Acetaminophen W/Cod 300-30 Tablet) 2 tab PO X1 ONE Stop: 04/01/25 20:37 Last Admin: 04/01/25 21:08 Dose: 2 tab Documented By: DT Sodium Chloride (Ns) 1,000 mls @ 999 mls/hr IV .Q1H1M ONE Stop: 04/01/25 21:36 Last Infusion: 04/01/25 22:09 Dose: Infused Documented By: [email or web address] Admin: 04/01/25 21:08 Dose: 999 mls/hr Documented By: RIA Ketorolac Tromethamine (Ketorolac Inj 30 Mg/Ml Vial) 15 mg IVP X1 ONE Stop: 04/01/25 20:37 Last Admin: 04/01/25 21:07 Dose: 15 mg Documented By: DT Levetiracetam (Levetiracetam Inj 100 Mg/Ml Vial 5ml) 2,000 mg IVP X1 ONE Stop: 04/01/25 20:37 Last Admin: 04/01/25 21:07 Dose: 2,000 mg Documented By: DT Ondansetron HCl (Ondansetron Inj 2 Mg/Ml Inj 2 Ml) 4 mg IVP X1 ONE; Protocol Stop: 04/01/25 20:37 Last Admin: 04/01/25 21:07 Dose: 4 mg Documented By: DT Treatment here included: Tylenol with Codeine X 2 IV fluid Toradol 15 mg IV Keppra 2000 mg IV Zofran 4 mg IV Consultations Consultation(s) initiated? (list below): No Diagnosis Seizure Differential Diagnosis: intractable seizure disorder, focal seizure, generalized seizure and epileptic seizure Most likely diagnosis given after review of the tests above:: Recurrent seizure C1 cervical fracture Admission Indicated Admission indicated?: not indicated Explain why admission is indicated or not indicated:: With significant improvement and no condition needing emergent intervention, there was no indication for admission. Admission Request Was there a request for admission?: No Disposition Plan Disposition Plan: Discharge Discharge Attestation Discharge Attestation: The patient and all family members were given an opportunity to ask questions and understood the discharge instructions. Discharge instructions specifically effects, indications for sooner follow up or return to the emergency department, and the expected course of current diagnosis. Patient condition: Stable Discharge Plan Plan Patient Disposition: HOME (Self Care) Prescriptions/Referrals Prescriptions/Med Rec: New levetiracetam [Keppra] 1,000 mg tablet 1,000 mg PO BID Qty: 60 0RF Referrals: Monty Paulson MD [Primary Care Provider, [facility]] - In 1 week Problem List Clinical Impression: Recurrent seizures, C1 cervical fracture Patient/Caregiver Discharge Instructions Discharge Activity: activity as tolerated Education Materials: ED Seizure, Recurrent (Adult), ED Transverse Process Fracture Additional Instructions: Discharge Instructions from Dr. Dill printed for you: 1. Increase Keppra to 1000 mg twice daily to prevent recurrent seizures. 2. Wear the neck brace until cleared by a doctor taking care of you. Your C1 neck fracture is stable. 3. See a private doctor on 04/02/2025 for recheck and further care. Ask to review all test results and official radiology reports, to make sure you receive all necessary follow-ups and monitoring. Ask for referral to see neurologist for your recurrent seizures and neck network diagnostic support specialist for your neck fracture. 4. Seek immediate medical care with worsening or with any concerns. Print Language: Sao Tomean Stand Alone Forms: Clara Award Info., Patient Portal Info Letter
[2025-04-01 20:33] VITALS: BP 153/84; PULSE 93; RESP 20; TEMP 35.9; O2SAT 94; BMI 29.5
--- NOTE | 2025-04-01 20:37 | EKG_ITS ---
[facility] Test Date: 2025-04-01 Pat Name: FANNY KERR Department: Room: - Gender: Male Phys Ther: : 1955 Requested By: Sage Harvey Order Number: [id number] Reading MD: Sage Harvey Measurements Intervals Seanor Rate: 91 P: 57 SD: 213 QRS: -42 QRSD: 81 T: 48 QT: 339 QTc: 418 Interpretive Statements SINUS RHYTHM WITH FIRST DEGREE AV BLOCK WITH OCCASIONAL SUPRAVENTRICULAR PREMATURE COMPLEXES LEFT AXIS DEVIATION [QRS AXIS < -30] PATTERN CONSISTENT WITH PULMONARY DISEASE Compared to ECG 03/12/2025 07:31:32 No significant changes /store/S0/[id number]/ecg/[id number].pdf
--- NOTE | 2025-04-01 20:37 | XR_ITS ---
Examination: CT brain head without contrast. 2-D sagittal coronal reconstructions Date and time of exam: April 01, 2025, 2153 hours, comparison 03/12/2025 INDICATIONS: Seizures today CTDI: vol (mGy): 57.6 DLP: (mGycm): 1142 Technique: Multiple CT axial sections of the brain have been obtained, 5 mm slice thickness. Contrast has not been administered. 2-D sagittal, coronal reconstructions have been obtained Low dose protocols were performed. One or more of the following dose reduction techniques were used; automated exposure control, adjustment of the mA and/or KV according to patient size, use of iterative reconstruction technique. Findings: No significant ventricular enlargement. Intra-axial or extra-axial hemorrhage density is not seen. No mass effect or midline shift Basal cisterns are not remarkable. Fourth ventricle is midline. Cranial vault intact. Impression: Negative for acute hemorrhage, mass effect or midline shift
--- NOTE | 2025-04-01 20:37 | XR_ITS ---
EXAMINATION: AP chest single view TECHNIQUE: AP portable semiupright chest single view Date and time: April 01, 2025, 210 hours, comparison 03/12/2025 INDICATIONS: Shortness of breath today. FINDINGS: Moderate enlargement left ventricle Pulmonary vascular congestion including central vascular engorgement Early septal edema at the lung bases Prominent osteopenia IMPRESSION: Early CHF
--- NOTE | 2025-04-01 20:37 | XR_ITS ---
Examination: CT cervical spine without contrast 2-D sagittal reconstructions 2-D coronal reconstructions 3-D reconstructions. Exam date and time: April 01, 2025, 2153 hours , Comparison 03/12/2025 INDICATIONS: Seizures today with injury to the neck, neck pain, history of fractures anterior ring C1 on the right extending into the lateral mass C1 CTDI:vol (mGy) 57.6 DLP: (mGycm) 1142 Technique: Multiple 2 mm axial sections of the cervical spine have been obtained. The coronal and sagittal reconstructions have been obtained. 3-D reconstructions have been obtained. Low dose protocols were performed. One or more of the following dose reduction techniques were used; automated exposure control, adjustment of the mA and/or KV according to patient size, use of iterative reconstruction technique. Findings: There is partial healing of the fracture anterior ring C1 extending into the lateral mass C1, axial image 27, no major change in healing compared to the March 12, 2025 exam Satisfactory alignment of cervical vertebral bodies No cervical vertebral body compression fracture No new cervical fracture IMPRESSION: Partially healing fracture anterior ring C1 extending into the lateral mass C1 No new fractures
[2025-04-01 20:53] VITALS: PULSE 85; RESP 14; O2SAT 99
[2025-04-01] MEDS: KETOROLAC INJ 30 MG/ML VIAL 15 MG IVP (21:07)
[2025-04-01] MEDS: levETIRAcetam INJ 100 MG/ML VIAL 5ML 2000 MG IVP (21:07)
[2025-04-01] MEDS: ONDANSETRON INJ 2 MG/ML INJ 2 ML 4 MG IVP (21:07)
[2025-04-01 21:08] LABS: Basophils # (Auto) 0.0 Thou/mm3 (0.0-0.2); Basophils % (Auto) 0 % (0-2.5); Eosinophils # (Auto) 0.0 Thou/mm3 (0.0-0.5); Eosinophils % (Auto) 0 % (0-10); Hematocrit 35.5 % (41.0-53.0); Hemoglobin 12.4 g/dL (13.5-16.0); Immature Granulocytes Auto 0.07 Thou/mm3 (0.00-0.00); Lymphocytes # (Auto) 8.1 Thou/mm3 (1.0-4.8); Lymphocytes % (Auto) 66 % (10-50); Mean Corpuscular HGB Conc 34.9 g/dl (31.0-37.0); Mean Corpuscular Hemoglobin 32.6 pg (25.0-35.0); Mean Corpuscular Volume 93 fL (80-100); Monocytes # (Auto) 0.6 Thou/mm3 (0.0-0.8); Monocytes % (Auto) 5 % (0-12); Neutrophils # (Auto) 3.5 Thou/mm3 (1.8-7.7); Neutrophils % (Auto) 28 % (37-80); Nucleated Red Blood Cell # 0.00 Thou/mm3 (0.00-0.00); Nucleated Red Blood Cell % 0 /100 WBC (0); Platelet Count 143 Thou/mm3 (140-440); RDW Standard Deviation 45.6 fL (35.1-43.9); Red Blood Count 3.80 Miln/mm3 (4.50-5.90); White Blood Count 12.3 Thou/mm3 (3.8-10.6)
[2025-04-01] MEDS: ACETAMINOPHEN w/COD 300-30 TABLET 2 TAB PO (21:08)
[2025-04-01] MEDS: SODIUM CHLORIDE 0.9% 1000 ML 1,000 ML 999 ML IV (21:08)
[2025-04-01 21:19] LABS: Alanine Aminotransferase 51 U/L (10-49); Albumin, Serum 4.0 gm/dL (3.4-4.8); Albumin/Globulin Ratio 1.7 (1.2-2.2); Alcohol, Blood Medical < 3.0 mg/dL (0-10.0); Alkaline Phosphatase 117 U/L (46-116); Anion Gap 9 (7-16); Aspartate Amino Transferase 36 U/L (0-34); BUN/Creatinine Ratio 16 Ratio (12-20); Bilirubin,Direct 0.1 mg/dL (0.0-0.3); Bilirubin,Total 0.3 mg/dL (0.3-1.2); Blood Urea Nitrogen 13 mg/dL (9-23); Calcium 8.8 mg/dL (8.3-10.6); Calcium (Corrected) 8.8 mg/dL (8.5-10.1); Carbon Dioxide 27.0 mMol/L (20.0-31.0); Chloride 95 mMol/L (98-107); Creatinine (Component) 0.8 mg/dL (0.6-1.3); Estimated Creatinine Clearance 98.4 mL/min (>60); Globulin 2.4 gm/dL (2.3-3.5); Glucose 115 mg/dL (74-106); Magnesium 2.0 mg/dL (1.6-2.6); Osmolality,Calculated 263 (275-295); Potassium 4.5 mMol/L (3.4-5.1); Sodium 131 mMol/L (136-145); Thyroid Stimulating Hormone 3.18 uIU/mL (0.55-4.78); Total Protein 6.4 gm/dL (5.7-8.2); Troponin I 0.035 ng/mL (0.0-0.045); eGFR > 60 See Note
[2025-04-01 21:35] LABS: B-Type Natriuretic Peptide 28 pg/mL (0-100)
[2025-04-01 21:40] VITALS: BP 161/101; PULSE 79; RESP 17; TEMP 36.4; O2SAT 95
[2025-04-01 22:54] LABS: Collection Type, Urine Clean Catch; Squamous Epithelial Cell,Urine 0 /hpf (0-5)
[2025-04-01 23:01] LABS: Bilirubin,Urine Negative (Negative); Blood,Urine Negative (Negative); Clarity,Urine Clear (Clear/Hazy); Color,Urine Colorless (Lt Yel-Yel); Culture Indicated,Urine Not Indicated; Glucose, Urine Negative (Negative); Ketones,Urine Negative (Negative); Leukocyte Esterase,Urine Negative (Negative); Nitrite,Urine Negative (Negative); PH,Urine 6.5 (5.0-7.0); Protein,Urine Negative (Neg - Trace); RBC,Urine 2 /hpf (0-3); Specific Gravity,Urine 1.010 (1.001-1.035); Urobilinogen,Urine Negative mg/dL (0.0-1.0); WBC,Urine < 1 /hpf (0-5)
[2025-04-01 23:10] LABS: Amphetamine/Methamp Scrn,U Negative (Negative); Barbiturate Screen,Urine Negative (Negative); Benzodiazepines Screen,Urine Negative (Negative); Benzoylecgonine Screen, Ur Negative (Negative); Fentanyl Screen,Urine Negative (Negative); Opiate Screen,Urine Positive (Negative); THC Screen,Urine Negative (Negative)
[2025-04-01 23:18] LABS: Influenza A Ag Negative; Influenza B Ag Negative
[2025-04-02 03:54] VITALS: BP 159/87; PULSE 99; RESP 18; O2SAT 100
--- NOTE | 2025-04-02 03:55 | PC.NURSE ---
report called to Elie she states they are waiting or the patient. Informed script was in packet.
== END 2025-04-02 03:55 | disposition home or self-care (01) ==
PROVIDERS: Emergency Provider Emergency Medicine; PCP Family Medicine
DX: G40.909 Epilepsy, unspecified, not intractable, without status epilepticus (principal); S12.000D Unspecified displaced fracture of first cervical vertebra, subsequent encounter for fracture with routine healing; I44.0 Atrioventricular block, first degree; R06.02 Shortness of breath; X58.XXXD Exposure to other specified factors, subsequent encounter
CPT/HCPCS: 36415; 70450; 71045; 72125; 80053; 80307; 80320; 81001; 82248; 83735; 83880; 84443; 84484; 85025; 87502; 87811; 93005; 96361; 96374; 96375; 99284; J1885; J1953; J2405; J7030; A9270; G0480

== ENCOUNTER 2025-05-18 09:12 | Inpatient (IN) | payer MEDICARE, MEDICAID, SELFPAY ==
[2025-05-18] VITALS (9 sets, daily range): BP systolic 113–151; BP diastolic 72–94; PULSE 18–75; RESP 15–72; TEMP 35.9–36.8; O2SAT 96–100; BMI 29.5; BMI 39.1
--- NOTE | 2025-05-18 09:23 | PC.NURSE ---
Patient presents to ED via ambulance with c/o seizure, tonic in nature, lasting about 45sec, witnessed by staff at group home. Patient is gcs 15 upon arrival, responsive, following commands. Report obtained from EMS, per staff and EMS neurology is increasing doses of keppra from 500mg to 1000mg. Patient/staff educated on seizure safety and precautions.
--- NOTE | 2025-05-18 09:32 | PD.EDSEIZ ---
ED Seizures RME/HPI General Chief Complaint: Seizure Stated Complaint: SEIZURE Time Seen by Provider: 05/18/25 09:25 Source: patient, EMS and other (Caregiver) Arrival date/time: 05/18/25 09:12 Mode of arrival: EMS Limitations: no limitations RME / HPI complaint: seizure RME / HPI Narrative: Patient is a 70-year-old male with medical history notable for epilepsy, cognitive delay, wheelchair-bound, currently in a c-collar for C1 fracture and was managed nonoperatively, up to the emergency department concerns for breakthrough seizure. Per EMS patient was in his chair, and started having a tonic-clonic seizure. Patient has a history of epilepsy. Per the caregiver at bedside, the patient seizure medications have recently been lowered in dose. His Keppra was decreased from 1500 to 1000 mg. He follows with Dr. Jesus. Patient is been complaining of feeling achy over the last few days and has dysuria. Otherwise denies chest pain shortness of breath abdominal pain melena hematochezia hematuria. Patient did not hit his head did not fall today. No trauma. Caregiver was not aware of why patient is wheelchair-bound however does state that previously he did have an unsteady gait. Related Data Home Medications ?Medication ?Instructions ?Recorded ?Confirmed acetaminophen 500 mg tablet 500 mg PO Q4H PRN fever or pain 05/18/25 05/18/25 albuterol sulfate 90 mcg/actuation 1 puff inhalation Q4H PRN 05/18/25 05/18/25 aerosol inhaler shortness of breath or wheezing benzonatate 100 mg capsule 100 mg PO Q8HR PRN cough 05/18/25 05/18/25 bisacodyl 10 mg rectal suppository 10 mg OH QDAY PRN constipation 05/18/25 05/18/25 cholecalciferol (vitamin D3) 50 50 mcg PO QDAY 05/18/25 05/18/25 mcg (2,000 unit) tablet (Vitamin D3) loratadine 10 mg tablet (Allergy 10 mg PO Q24H 05/18/25 05/18/25 Relief (loratadine)) magnesium hydroxide 400 mg/5 mL 30 ml PO QDAY PRN constipation 05/18/25 05/18/25 oral suspension (Milk of Magnesia) mirabegron 25 mg tablet,extended 25 mg PO QDAY 05/18/25 05/18/25 release 24 hr Previous Rx's ?Medication ?Instructions ?Recorded aripiprazole 5 mg tablet 15 mg (3 x 5 mg) PO QDAY #10 tabs 05/20/25 ibuprofen 600 mg tablet 600 mg PO QDAY #10 tabs 05/20/25 levetiracetam 1,000 mg tablet 500 mg (1/2 x 1,000 mg) PO BID #60 05/20/25 (Keppra) tabs sodium chloride 1,000 mg soluble 1,000 mg PO QDAY #10 tabs 05/20/25 tablet Allergies Allergy/AdvReac Type Severity Reaction Status Date / Time No Known Allergies Allergy Verified 05/18/25 09:21 Review of Systems Review of Systems Systems Reviewed: All systems reviewed, normal except as documented Past Medical History Past Medical History NEUROLOGIC: Positive Neurological Disorders and Epilepsy OTHER HISTORY: Positive Falls Social History SMOKING STATUS: Never smoker ED Exam General Limitations: Present no limitations Head Head exam: Present atraumatic and normocephalic Eye Eye exam: Present normal appearance and PERRL ENT ENT exam: Present normal exam Neck Neck exam: Present normal inspection and other (Patient in a c-collar) Chest Chest inspection: Present normal inspection and symmetric chest wall rise Respiratory Respiratory exam: Present normal lung sounds bilaterally; Absent respiratory distress Cardiovascular Cardiovascular exam: Present regular rate and normal rhythm Abdominal Exam Abdominal exam: Present soft; Absent distention, tenderness, guarding or rebound Extremities Exam Extremities exam: Present normal inspection and full ROM Neurological Exam Neurological exam: Present alert and other (Weakness bilateral lower extremities, strong upper extremities, sensation intact. Per nursing staff this is chronic) Psychiatric Psychiatric exam: Present normal affect Skin Skin exam: Present warm, dry and intact Course Quality Measures none Orders Category Date Time Status Bedside COVID-19 Antigen Test NOW Care 05/18/25 09:32 Completed EKG (ED ONLY) *Do not use* NOW Care 05/18/25 09:38 Completed EKG (ED Only) Stat Exams 05/18/25 09:38 Draft CBC Stat Lab 05/18/25 09:58 Completed CMP [Comprehensive Metabolic Panel] Stat Lab 05/18/25 09:58 Completed Electrolytes, Urine Random Stat Lab 05/19/25 22:19 Completed INR [Prothrombin Time with INR] Stat Lab 05/18/25 09:58 Completed Influenza A & B Rapid Panel Stat Lab 05/18/25 10:15 Completed Osmolality, Serum* Stat Lab 05/18/25 22:16 Completed UA, C/S IF [Urinalysis, C/S if Indicated] Stat Lab 05/18/25 11:06 Completed Urine Chem 10 (Auto) Stat Lab 05/19/25 22:19 Completed Ondansetron Inj [Zofran Inj] Med 05/18/25 11:24 Discontinued 4 mg IVP X1 ONE levETIRAcetam INJ [Keppra Inj] Med 05/18/25 09:32 Discontinued 1,000 mg IVP X1 ONE Vital Signs Vital signs: Vital Signs Pulse Rate 54 L 05/18/25 10:05 Respiratory Rate 19 05/18/25 10:05 Blood Pressure 113/72 05/18/25 10:05 Pulse Oximetry (%) 100 05/18/25 10:05 Oxygen Delivery Method Room Air 05/18/25 10:05 Pulse ox is 100% on room air which is adequate. Seizure MDM Narrative MDM Narrative:: Patient is a 70-year-old male is in the emergency department with concerns for breakthrough seizure. Vital signs and exam as listed. Concern for breakthrough seizure, metabolic derangement, patient is not hypoglycemic given that blood glucose tested by staff on arrival was 136. Concern for breakthrough seizure secondary to medication being down titrated. Patient did not hit his head, no trauma occurred, do not suspect intracranial injury nor other injury given no history of trauma. Patient is neurologically intact and at his baseline. Also complaining of having bodyaches and dysuria. Concern for urinary tract infection viral syndrome. Ordered labs, EKG offered medication for symptom relief. EKG performed today at 1016 in the morning. Interpreted by me. Heart rate 60, prolonged OH 255, normal QT, not a cardiac alert. I do not have a prior for comparison. Labs with evidence of leukocytosis 13.5, no left shift, patient hemoglobin 12.3, sodium 122 previously 132. Chloride 86. No anion gap acidosis, no transaminitis. given patient had a breakthrough seizure and is hyponatremic we will discuss admission with the hospitalist. Ordered urine urine and serum osmole's as well as urine lites. Discussed case with hospitalist. 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 Social determinants that could affect healthcare access:: mental health Patient has the following chronic illnesses:: See MDM How is presenting disease/condition affected by chronic disease/condition?: exacerbated by Evaluation data The following diagnostics were reviewed and interpreted by me:: lab results, radiology exam(s) and EKG tracing(s) Lab and/or radiology exams considered but not ordered:: None Interpretation Summary: See MDM Medications / Prescriptions Medications or Prescriptions considered but not ordered:: None Medication administrations:: Medication Administration History Discontinued Medications Acetaminophen (Acetaminophen 325 Mg Tablet) 650 mg PO Q6H PRN PRN Reason: Fever >100.4 or pain Stop: 06/17/25 12:06 Last Admin: 05/19/25 09:52 Dose: 650 mg Documented By: BRIAN Enoxaparin Sodium (Enoxaparin Sod Inj 40 Mg/0.4 Ml Syringe) 40 mg SC QDAY ARJUN Stop: 06/02/25 08:59 Last Admin: 05/20/25 08:53 Dose: 40 mg Documented By: Admin: 05/19/25 08:14 Dose: 40 mg Documented By: BRIAN Guaifenesin (Guaifenesin Syrup 200 Mg/10 Ml Udc) 100 mg PO X1 ONE; Protocol Stop: 05/20/25 04:33 Last Admin: 05/20/25 04:59 Dose: 100 mg Documented By: SHRUTHI Magnesium Sulfate (Magnesium Sulfate Ivpb) 2 gm in 50 mls @ 25 mls/hr IV X1 ONE Stop: 05/19/25 10:01 Last Infusion: 05/19/25 10:14 Dose: Infused Documented By: Admin: 05/19/25 08:14 Dose: 25 mls/hr Documented By: BRIAN Levetiracetam (Levetiracetam Inj 100 Mg/Ml Vial 5ml) 1,000 mg IVP X1 ONE Stop: 05/18/25 09:33 Last Admin: 05/18/25 10:03 Dose: 1,000 mg Documented By: ALEA Levetiracetam (Levetiracetam Liqd 500 Mg/5 Ml Udc) 500 mg PO BID ARJUN Stop: 06/17/25 20:59 Last Admin: 05/20/25 08:54 Dose: 500 mg Documented By: Admin: 05/19/25 20:34 Dose: 500 mg Documented By: Admin: 05/19/25 08:14 Dose: 500 mg Documented By: Admin: 05/18/25 20:17 Dose: 500 mg Documented By: MAXIMO Melatonin (Melatonin 3 Mg Tablet) 6 mg PO HS ARJUN Stop: 06/17/25 20:59 Last Admin: 05/19/25 20:34 Dose: 6 mg Documented By: Admin: 05/18/25 20:17 Dose: 6 mg Documented By: MAXIMO Midazolam HCl (Midazolam Inj 1 Mg/Ml Vial 2 Ml) 2 mg IVP Q1HR PRN PRN Reason: breakthrough seizure Stop: 05/23/25 12:35 Ondansetron HCl (Ondansetron Inj 2 Mg/Ml Inj 2 Ml) 4 mg IVP X1 ONE; Protocol Stop: 05/18/25 11:25 Last Admin: 05/18/25 11:26 Dose: 4 mg Documented By: HOANG Ondansetron HCl (Ondansetron Inj 2 Mg/Ml Inj 2 Ml) 4 mg IVP Q6H PRN; Protocol PRN Reason: NAUSEA OR VOMITING Stop: 06/17/25 12:06 Last Admin: 05/19/25 12:10 Dose: 4 mg Documented By: Admin: 05/18/25 19:15 Dose: 4 mg Documented By: MAXIMO Pantoprazole Sodium (Pantoprazole 40 Mg Tablet) 40 mg PO QDAY [facility] Stop: 06/18/25 08:59 Last Admin: 05/20/25 08:54 Dose: 40 mg Documented By: Admin: 05/19/25 08:14 Dose: 40 mg Documented By: BRIAN Sodium Chloride (Sodium Chloride 1 Gm Tablet) 1 gm PO X1 ONE Stop: 05/19/25 07:36 Last Admin: 05/19/25 08:14 Dose: 1 gm Documented By: BRIAN Sodium Chloride (Sodium Chloride 1 Gm Tablet) 1 gm PO X1 ONE Stop: 05/19/25 15:54 Last Admin: 05/19/25 16:18 Dose: 1 gm Documented By: BRIAN Sodium Chloride (Sodium Chloride 1 Gm Tablet) 1 gm PO X1 ONE Stop: 05/19/25 19:11 Last Admin: 05/19/25 20:34 Dose: 1 gm Documented By: SHRUTHI Sodium Chloride (Sodium Chloride 1 Gm Tablet) 1 gm PO QDAY [facility] Stop: 06/19/25 08:59 Last Admin: 05/20/25 08:54 Dose: 1 gm Documented By: KIM See above Consultations Consultation(s) initiated? (list below): Yes Consultation #1 (Physician, Specialty, Details): [id number]: I spoke with hospitalist team B for admission. Diagnosis Seizure Differential Diagnosis: intractable seizure disorder, febrile convulsion, focal seizure, generalized seizure and epileptic seizure Most likely diagnosis given after review of the tests above:: Epileptic seizure Body aches Dysuria First degree heart block Acute hyponatremia Nausea Admission Indicated Admission indicated?: indicated Admission Request Was there a request for admission?: Yes Admission Attestation Admission request attestation: Discussed case with Hospitalist service regarding admission. Discussed patients ED course, exam findings, labs, and radiology results. The Hospitalist [agrees] to accept the patient for admission. Disposition Plan Disposition Plan: Admit Critical Care Time Critical Care Time Critical Care Time: Yes Total Critical Care Time (min.): 36 Attestation: Total critical care time: Approximately?36?minutes Due to a high probability of clinically significant, life threatening deterioration, the patient required my highest level of preparedness to intervene emergently and I personally spent this critical care time directly and personally managing the patient. This critical care time included obtaining a history; examining the patient; pulse oximetry; ordering and review of studies; arranging urgent treatment with development of a management plan; evaluation of patient's response to treatment; frequent reassessment; and, discussions with other providers. This critical care time was performed to assess and manage the high probability of imminent, life-threatening deterioration that could result in multi-organ failure. It was exclusive of separately billable procedures and treating other patients and teaching time. Please see MDM section and the rest of the note for further information on patient assessment and treatment. Discharge Plan Plan Patient Disposition: Admit Acute Care w/in Hospital Patient condition on transfer: Stable Problem List Clinical Impression: Epileptic seizure, Body aches, Dysuria, First degree heart block, Acute hyponatremia, Nausea
--- NOTE | 2025-05-18 09:38 | EKG_ITS ---
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
[2025-05-18] MEDS: levETIRAcetam INJ 100 MG/ML VIAL 5ML 1000 MG IVP (10:03)
[2025-05-18 10:09] LABS: Basophils # (Auto) 0.0 Thou/mm3 (0.0-0.2); Basophils % (Auto) 0 % (0-2.5); Eosinophils # (Auto) 0.0 Thou/mm3 (0.0-0.5); Eosinophils % (Auto) 0 % (0-10); Hematocrit 34.0 % (41.0-53.0); Hemoglobin 12.3 g/dL (13.5-16.0); Immature Granulocytes Auto 0.03 Thou/mm3 (0.00-0.00); Lymphocytes # (Auto) 6.4 Thou/mm3 (1.0-4.8); Lymphocytes % (Auto) 47 % (10-50); Mean Corpuscular HGB Conc 36.2 g/dl (31.0-37.0); Mean Corpuscular Hemoglobin 33.2 pg (25.0-35.0); Mean Corpuscular Volume 92 fL (80-100); Monocytes # (Auto) 0.9 Thou/mm3 (0.0-0.8); Monocytes % (Auto) 7 % (0-12); Neutrophils # (Auto) 6.2 Thou/mm3 (1.8-7.7); Neutrophils % (Auto) 46 % (37-80); Nucleated Red Blood Cell # 0.00 Thou/mm3 (0.00-0.00); Nucleated Red Blood Cell % 0 /100 WBC (0); Platelet Count 123 Thou/mm3 (140-440); RDW Standard Deviation 44.6 fL (35.1-43.9); Red Blood Count 3.71 Miln/mm3 (4.50-5.90); White Blood Count 13.5 Thou/mm3 (3.8-10.6)
[2025-05-18 10:38] LABS: Alanine Aminotransferase 34 U/L (10-49); Albumin, Serum 4.0 gm/dL (3.4-4.8); Albumin/Globulin Ratio 1.7 (1.2-2.2); Alkaline Phosphatase 113 U/L (46-116); Anion Gap 5 (7-16); Aspartate Amino Transferase 41 U/L (0-34); BUN/Creatinine Ratio 13 Ratio (12-20); Bilirubin,Total 0.4 mg/dL (0.3-1.2); Blood Urea Nitrogen 10 mg/dL (9-23); Calcium 8.5 mg/dL (8.3-10.6); Calcium (Corrected) 8.5 mg/dL (8.5-10.1); Carbon Dioxide 30.7 mMol/L (20.0-31.0); Chloride 86 mMol/L (98-107); Creatinine (Component) 0.8 mg/dL (0.6-1.3); Estimated Creatinine Clearance 98.4 mL/min (>60); Globulin 2.4 gm/dL (2.3-3.5); Glucose 112 mg/dL (74-106); INR 1.0 (0.9-1.3); Osmolality,Calculated 245 (275-295); Potassium 4.6 mMol/L (3.4-5.1); Prothrombin Time 10.2 Seconds (9.0-12.2); Sodium 122 mMol/L (136-145); Total Protein 6.4 gm/dL (5.7-8.2); eGFR > 60 See Note
[2025-05-18 10:46] LABS: Influenza A Ag Negative; Influenza B Ag Negative
[2025-05-18 11:16] LABS: Collection Type, Urine Catheter; Squamous Epithelial Cell,Urine 0 /hpf (0-5)
[2025-05-18 11:26] LABS: Bilirubin,Urine Negative (Negative); Blood,Urine Negative (Negative); Clarity,Urine Clear (Clear/Hazy); Color,Urine Lt-Yellow (Lt Yel-Yel); Culture Indicated,Urine Not Indicated; Glucose, Urine Negative (Negative); Hyaline Casts,Urine < 1 /hpf (0-1); Ketones,Urine Negative (Negative); Leukocyte Esterase,Urine Negative (Negative); Nitrite,Urine Negative (Negative); PH,Urine 6.5 (5.0-7.0); Protein,Urine Negative (Neg - Trace); RBC,Urine < 1 /hpf (0-3); Specific Gravity,Urine 1.014 (1.001-1.035); Urobilinogen,Urine Negative mg/dL (0.0-1.0); WBC,Urine 1 /hpf (0-5)
[2025-05-18] MEDS: ONDANSETRON INJ 2 MG/ML INJ 2 ML 4 MG IVP ×2 (11:26→19:15)
--- NOTE | 2025-05-18 12:07 | XR_ITS ---
EXAMINATION: AP chest single view TECHNIQUE: AP portable semiupright chest single view Date and time: May 18, 2025, 12:35 p.m., comparison April 01, 2025 INDICATIONS: Coughing 3 days. FINDINGS: Mild enlargement cardiac contour Suspicious for retrocardiac gastric hernia. Prominent vascular congestion Prominent elevation right hemidiaphragm Atelectasis right lower lobe Prominent osteopenia IMPRESSION: Suspicious for early heart failure
--- NOTE | 2025-05-18 13:51 | ESHP_ITS ---
<Statement entered by Matt Astorga MD - 05/18/25 18:52> 70-year-old male with significant past medical history of seizure disorder, cognitive delay, wheelchair-bound, recent C1 fracture in cervical collar presented to the hospital with breakthrough seizure. Per caregiver at the bedside, reported that patient is getting adjustment of seizure medications because of his behavioral disturbances. Following with neurologist, Dr Jesus. Had only 1 episode of seizure lasted for 2 to 3 minutes at his facility. Noted to have hyponatremia of sodium 122. 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 Appears to be euvolemic. Ordered urine sodium. Started on fluid restriction 1.5 L/day. Will continue sodium checks and start oral salt tablets. Exact cause of SIADH is unknown as of now, though the patient is on Abilify for a long duration SIADH appears to be present now, will follow-up with the neurologist. I have personally seen and examined the patient, agree with residents assessment and plan Patient plan of care was discussed with the attending physician, Dr. Homa Astorga, PGY2 Documentation for date of: 05/18/25 HPI History of Present Illness Chief complaint: Breakthrough seizures History of present illness: 70-year-old male with a history of epilepsy, developmental delay, and wheelchair-bound baseline due to chronic bilateral lower extremity weakness, currently in a cervical collar after a non-operative C1 fracture. He presented after a witnessed tonic?clonic seizure this morning at his retirement. The seizure occurred while he was sitting in his wheelchair talking with staff. He had one episode only and was postictal afterward but is now at his neurologic baseline. He is unsure whether he struck his head, though he denies any clear fall. The patient states he has a long-standing history of seizures and takes Keppra daily, including this morning. His caregiver reports that his Keppra dose has been actively down-titrated over the last several weeks at the recommendation of outpatient psychiatry/neurology due to behavioral issues. He was previously on 1500 mg, recently decreased to 1000 mg, with a planned goal dose of 500 mg. The caregiver states that since this taper began he has had increasing fatigue, dizziness, and changes in activity such as wanting to stay in bed all day over the weekend. He has also had a wet cough for several days with occasional sputum production. No fevers or chills have been reported. The caregiver states he has had a chronic cough for several months, with multiple prior visits showing normal chest X-rays. The caregiver denies recent infections, aside from the cough. He eats independently, uses a urinal, and toilets with assistance. No changes in bowel or bladder patterns were noted. Medication changes this month include the Keppra taper and an increase in Abilify from 10 mg to 15 mg last week for behavior management. The caregiver denies missed medication doses. The patient denies chest pain, dyspnea, abdominal pain, diarrhea, or hematuria. He denies hallucinations or suicidal thoughts. In the ED, he received a 1 g IV Keppra load. Labs showed WBC 13.5, Na 122, low serum osmolality at 245 consistent with hypotonic hyponatremia, normal creatinine, and a negative UA. CXR suggested possible early CHF but no pneumonia. He remains hemodynamically stable and neurologically at baseline. Review of Systems: All other systems reviewed and negative except as above. Past Medical History: * Epilepsy * Cognitive delay * C1 fracture (non-operative, currently in collar) * Frequent falls historically * Chronic wheelchair-bound status Past Surgical History: None reported. Medications (Home): * Keppra (dose recently reduced from 1500 mg -> 1000 mg) * Abilify 15 mg daily Allergies: No known drug allergies. Social History: * Lives in retirement with full-time caregivers. * Never smoker. * No alcohol or drug use. Exam Vital Signs Temp Pulse Resp BP Pulse Ox O2 Del Method 98.3 F 64 15 136/92 H 99 Room Air 05/18/25 12:20 05/18/25 12:20 05/18/25 12:20 05/18/25 12:20 05/18/25 12:20 05/18/25 12:20 Narrative Exam General: Awake, answers questions appropriately despite baseline cognitive delay. Head: Normocephalic, atraumatic. Eyes: PERRL; no scleral icterus. Neck: C-collar in place; no JVD. Lungs: Clear to auscultation, no respiratory distress. Wet cough present. Cardiac: Regular rhythm, no murmurs. Abdomen: Soft, non-tender, nondistended. Extremities: No edema. Moves UE well; chronic bilateral LE weakness. Neuro: Alert; oriented to self; speech clear; no focal deficits new from baseline. Skin: Warm, dry, intact. Results: Labs 05/18/25 09:58 05/18/25 16:07 Labs: Short CBC 05/18/25 Range/Units 09:58 WBC 13.5 H (3.8-10.6) Thou/mm3 Hgb 12.3 L (13.5-16.0) g/dL Hct 34.0 L (41.0-53.0) % Plt Count 123 L (140-440) Thou/mm3 BMP 05/18/25 09:58 Sodium 122 L Potassium 4.6 Chloride 86 L Carbon Dioxide 30.7 BUN 10 Creatinine 0.8 Glucose 112 H Calcium 8.5 Liver Function 05/18/25 Range/Units 09:58 Total Bilirubin 0.4 (0.3-1.2) mg/dL AST 41 H (0-34) U/L ALT 34 (10-49) U/L Alkaline Phosphatase 113 (46-116) U/L Albumin 4.0 (3.4-4.8) gm/dL Urine 05/18/25 Range/Units 11:06 Urine Color Lt-Yellow (Lt Yel-Yel) Urine Clarity Clear (Clear/Hazy) Urine pH 6.5 (5.0-7.0) Ur Specific [place] 1.014 (1.001-1.035) Urine Protein Negative (Neg - Trace) Urine Glucose (UA) Negative (Negative) Quality Measures Quality Measures VTE prophylaxis Advance care planning discussed with:: patient Medications Home Medications and Allergies Home Medications ?Medication ?Instructions ?Recorded ?Confirmed ?Type acetaminophen 500 mg tablet 500 mg PO Q4H PRN fever or pain 05/18/25 05/18/25 History albuterol sulfate 90 mcg/actuation 1 puff inhalation Q 4H PRN 05/18/25 05/18/25 History aerosol inhaler shortness of breath or wheez ing benzonatate 100 mg capsule 100 mg PO Q8HR PRN cough 05/18/25 History bisacodyl 10 mg rectal suppository 10 mg MN QDAY PRN c onstipation 05/18/25 05/18/25 History cholecalciferol (vitamin D3) 50 50 mcg PO QDAY 5 05/18/25 History mcg (2,000 unit) tablet (Vitamin D3) ibuprofen 600 mg tablet 600 mg PO Q8H 05/18/2505/18 History loratadine 10 mg tablet (Allergy 10 mg PO Q24H 5 05/18/25 History Relief (loratadine)) magnesium hydroxide 400 mg/5 mL 30 ml PO QDAY PRN cons tipation 05/18/25 05/18/25 History oral suspension (Milk of Magnesia) mirabegron 25 mg tablet,extended 25 mg PO QDAY 5 05/18/25 History release 24 hr Allergies Allergy/AdvReac Type Severity Reaction Status Date / Time No Known Allergies Allergy Verified 05/18/25 09:21 Visit Medications Acetaminophen (Acetaminophen 325 Mg Tablet) 650 mg PO Q6H PRN PRN Reason: Fever >100.4 or pain Stop: 06/17/25 12:06 Enoxaparin Sodium (Enoxaparin Sod Inj 40 Mg/0.4 Ml Syringe) 40 mg SC QDAY ARJUN Stop: 06/02/25 08:59 Levetiracetam (Levetiracetam Liqd 500 Mg/5 Ml Udc) 500 mg PO BID ARJUN Stop: 06/17/25 20:59 Midazolam HCl (Midazolam Inj 1 Mg/Ml Vial 2 Ml) 2 mg IVP Q1HR PRN PRN Reason: breakthrough seizure Stop: 05/23/25 12:35 Ondansetron HCl (Ondansetron Inj 2 Mg/Ml Inj 2 Ml) 4 mg IVP Q6H PRN; Protocol PRN Reason: NAUSEA OR VOMITING Stop: 06/17/25 12:06 Discontinued Medications Levetiracetam (Levetiracetam Inj 100 Mg/Ml Vial 5ml) 1,000 mg IVP X1 ONE Stop: 05/18/25 09:33 Last Admin: 05/18/25 10:03 Dose: 1,000 mg Ondansetron HCl (Ondansetron Inj 2 Mg/Ml Inj 2 Ml) 4 mg IVP X1 ONE; Protocol Stop: 05/18/25 11:25 Last Admin: 05/18/25 11:26 Dose: 4 mg Assessment & Plan Plan 70-year-old male with epilepsy, cognitive delay, wheelchair-bound with chronic bilateral LE weakness, and C1 fracture in cervical collar, admitted for a breakthrough generalized tonic-clonic seizure likely triggered by recent Keppra dose reduction + acute hyponatremia (Na 122), now stable post-Keppra load. # Breakthrough Seizure likely 2/2 to hyponatremia Single tonic?clonic seizure today Now at baseline Likely precipitated by AED reduction and low sodium. Plan: * Continue Keppra 500 mg BID for now. * Seizure precautions. * Neuro checks q4h. * Neurology consult with Dr. Jesus for long-term AED plan. * Monitor for recurrent events. # Hypo-osmolality and hyponatremia likely 2/2 to SIADH vs medication Na 122, serum osm 245 consistent with SIADH? Hypo-osmolar hyponatremia likely from SIADH due to Abilify? recent dose chaneg Chronic hyponatremic Plan: * Fluid restriction 1.5 L/day. * Na checks Q6 hours * Follow urine sodium (pending). * Will consider holding Abilify if sodium worsens. # Chronic cough Long-standing wet cough Afebrile; CXR without pneumonia Recently on azithromycin. Plan: * Continue supportive management. * Monitor for fever or new hypoxia. # First-Degree AV Block (asymptomatic) MN 255 ms; asymptomatic; likely chronic. Plan: * Telemetry monitoring. * Avoid AV aimee blockers. * No treatment needed unless rhythm changes. # C1 Fracture (chronic, non-operative) In cervical collar since Next CT 05/29. Plan: * Keep collar on at all times. * Continue fall precautions. * Manage pain conservatively. # Cognitive Delay # Behavioral Changes Baseline mental delay Behavioral issues led to AED taper and Abilify increase. Plan: * Continue Abilify 15 mg for now. * Reassess need if SIADH confirmed. * Maintain routines; involve caregiver in care. Health maintenance: Disposition: Admit to telemetry Feeding: Regular diet Thromboprophylaxis: Lovenox GI Prophylaxis: N/A Code Status: Full code ----- Plan discussed with attending physician Dr. Luther and senior resident Dr. Gauri Goldberg MD PGY-1 Internal Medicine Attending Provider Attestation/Addendum I or my resident physicians have discussed care with the ED physician and I have made the decision to admit. I have discussed and was present for the essential components of the history, physical examination, diagnosis, and treatment plan with the resident. I agree with the patient's care as documented by the resident and amended herein by me. Gama Luther DO. Although this document has been carefully reviewed, there may still be some phonetic and other typographical errors. These errors are purely grammatical due to imperfections in the software program and should not be construed in any way to compromise the substance of the patient's medical care during this visit.
--- NOTE | 2025-05-18 14:00 | PC.SS ---
Patient Rajat Das is a 70 Year old male admitted for Break through seizures. SS contacted [facility] and spoke to senior production supervisor, Pina. She reported patient has been in [facility] since October of 2024. Patient is alert and oriented. Patient is bed bound and utilizes a wheel chair to assist with ambulation. Patient needs assistance completing all ADL's. PCP is Monty Paulson. Pharmacy is [facility]. Patient's surrogate decision maker is his sister, Nellie Delatorre [phone]. A time of discharge patient will return back to [facility]. If discharged after Before 2:30PM [facility] is able to provide transportation. Discharge plan: [facility] Next of kin: Sister, Lolis Delatorre PCP: Monty Paulson
--- NOTE | 2025-05-18 14:32 | PC.NURSE ---
report given to Delmer Lugo patient transferring for admission to room 264.
[2025-05-18 17:21] LABS: Sodium 122 mMol/L (136-145)
--- NOTE | 2025-05-18 20:15 | PD.RESCONSUL ---
HPI Data of Consult Requesting Physician: Jevon Luther DO Admitting Provider: Jevon Luther DO Attending Provider: Cristobal Jesus MD Primary Care Provider: Monty Paulson MD Consult Narrative Reason for consult: Seizure History of present illness: Mrs. Das is a 70-year-old male with past history of seizure disorder, wheelchair-bound due to bilateral lower extremity weakness, and recent C1 fracture currently in cervical collar, who was brought in from his [facility] after a tonic-clonic seizure was witnessed in the morning which lasted for about 2-3 minutes at the facility. At admission, labs showed hyponatremia of 122, previous documented sodium levels 133?134. Patient has also had behavioral issues at the facility as per caregiver. Per patient, he has poor sleep and has been taken off his medication. 1900: Patient appears calm, able to move his extremities. AO x 3, euvolemic, following commands. On chart review, patient was previously on aripiprazole nightly which was discontinued on 05/08/2025. Will start melatonin for now to help with sleep issues. Primary team has resumed home Keppra, tolerating well. Patient is severely congested, producing thick phlegm and significant nasal discharge, will need decongestant. cc:: cc: Jevon Luther DO Review of Systems Review of Systems Narrative Review of Systems: GENERAL: Denies fevers/chills, diaphoresis. HEENT: Denies headache or visual/hearing changes. Denies nasal discharge. NEURO: Denies unusual weakness or difficulty speaking. CARDIO: Denies chest pain, palpitations. PULM: Denies SOB, cough, wheezing. GI: Denies abdominal pain, no N/V, no C/D. Reports having BMs URO: Denies burning/itching/pain/urinary changes.. MSK/EXT/SKIN: Denies skeletal/muscle pain, changes in upper or lower extremities, itchiness, superficial skin chnages. PSYCH: Cooperative, pleasant mood & affect. The rest of the review of systems is otherwise negative. Exam Vital Signs Temp Pulse Resp BP Pulse Ox O2 Del Method 97.6 F 67 15 137/85 H 97 Room Air 05/18/25 16:00 05/18/25 16:00 05/18/25 16:00 05/18/25 16:00 05/18/25 16:00 05/18/25 16:00 Narrative Exam General: Awake, answers questions appropriately despite baseline cognitive delay. Head: Normocephalic, atraumatic. Eyes: PERRLA; no scleral icterus. Neck: C-collar in place; cannot assess JVD. Lungs: Congestive on auscultation, no respiratory distress. Cardiac: Regular rhythm, no murmurs. Abdomen: Soft, non-tender, nondistended. Extremities: No edema. Moves UE well; chronic bilateral LE weakness. Neuro: Alert; oriented to self; speech clear; no focal deficits new from baseline. Skin: Warm, dry, intact. Results Labs 05/18/25 09:58 05/18/25 22:16 Labs: Short CBC 05/18/25 Range/Units 09:58 WBC 13.5 H (3.8-10.6) Thou/mm3 Hgb 12.3 L (13.5-16.0) g/dL Hct 34.0 L (41.0-53.0) % Plt Count 123 L (140-440) Thou/mm3 BMP 05/18/25 05/18/25 09:58 16:07 Sodium 122 L 122 L Potassium 4.6 Chloride 86 L Carbon Dioxide 30.7 BUN 10 Creatinine 0.8 Glucose 112 H Calcium 8.5 Liver Function 05/18/25 Range/Units 09:58 Total Bilirubin 0.4 (0.3-1.2) mg/dL AST 41 H (0-34) U/L ALT 34 (10-49) U/L Alkaline Phosphatase 113 (46-116) U/L Albumin 4.0 (3.4-4.8) gm/dL Urine 05/18/25 Range/Units 11:06 Urine Color Lt-Yellow (Lt Yel-Yel) Urine Clarity Clear (Clear/Hazy) Urine pH 6.5 (5.0-7.0) Ur Specific [place] 1.014 (1.001-1.035) Urine Protein Negative (Neg - Trace) Urine Glucose (UA) Negative (Negative) Quality Measures Quality Measures VTE prophylaxis Advance care planning discussed with:: patient Medications Home Medications and Allergies Home Medications ?Medication ?Instructions ?Recorded ?Confirmed ?Type acetaminophen 500 mg tablet 500 mg PO Q4H PRN fever or pain 05/18/25 05/18/25 History albuterol sulfate 90 mcg/actuation 1 puff inhalation Q4H PRN 05/18/25 05/18/25 History aerosol inhaler shortness of breath or wheezing benzonatate 100 mg capsule 100 mg PO Q8HR PRN cough 05/18/25 05/18/25 History bisacodyl 10 mg rectal suppository 10 mg KS QDAY PRN constipation 05/18/25 05/18/25 History cholecalciferol (vitamin D3) 50 50 mcg PO QDAY 05/18/25 05/18/25 History mcg (2,000 unit) tablet (Vitamin D3) ibuprofen 600 mg tablet 600 mg PO Q8H 05/18/25 05/18/25 History loratadine 10 mg tablet (Allergy 10 mg PO Q24H 05/18/25 05/18/25 History Relief (loratadine)) magnesium hydroxide 400 mg/5 mL 30 ml PO QDAY PRN constipation 05/18/25 05/18/25 History oral suspension (Milk of Magnesia) mirabegron 25 mg tablet,extended 25 mg PO QDAY 05/18/25 05/18/25 History release 24 hr Allergies Allergy/AdvReac Type Severity Reaction Status Date / Time No Known Allergies Allergy Verified 05/18/25 09:21 Visit Medications Acetaminophen (Acetaminophen 325 Mg Tablet) 650 mg PO Q6H PRN PRN Reason: Fever >100.4 or pain Stop: 06/17/25 12:06 Enoxaparin Sodium (Enoxaparin Sod Inj 40 Mg/0.4 Ml Syringe) 40 mg SC QDAY ARJUN Stop: 06/02/25 08:59 Levetiracetam (Levetiracetam Liqd 500 Mg/5 Ml Udc) 500 mg PO BID ARJUN Stop: 06/17/25 20:59 Melatonin (Melatonin 3 Mg Tablet) 6 mg PO HS ARJUN Stop: 06/17/25 20:59 Midazolam HCl (Midazolam Inj 1 Mg/Ml Vial 2 Ml) 2 mg IVP Q1HR PRN PRN Reason: breakthrough seizure Stop: 05/23/25 12:35 Ondansetron HCl (Ondansetron Inj 2 Mg/Ml Inj 2 Ml) 4 mg IVP Q6H PRN; Protocol PRN Reason: NAUSEA OR VOMITING Stop: 06/17/25 12:06 Last Admin: 05/18/25 19:15 Dose: 4 mg Pantoprazole Sodium (Pantoprazole 40 Mg Tablet) 40 mg PO QDAY ARJUN Stop: 06/18/25 08:59 Discontinued Medications Levetiracetam (Levetiracetam Inj 100 Mg/Ml Vial 5ml) 1,000 mg IVP X1 ONE Stop: 05/18/25 09:33 Last Admin: 05/18/25 10:03 Dose: 1,000 mg Ondansetron HCl (Ondansetron Inj 2 Mg/Ml Inj 2 Ml) 4 mg IVP X1 ONE; Protocol Stop: 05/18/25 11:25 Last Admin: 05/18/25 11:26 Dose: 4 mg Assessment & Plan Plan Patient is a 70-year-old male brought in due to breakthrough seizure at [facility]. Breakthrough seizure Likely due to Hypotonic hyponatremia, moderate History of seizure disorder In the setting of Recent C1 fracture Insomnia Recommendations: - Resume home dose Keppra - Continue melatonin 6 mg at bedtime for insomnia - Na 122 likely the cause for acute breakthrough seizures. Recommend sodium correction at a goal of 4-6 mmol in 24 hours. Anticipate improvement with electrolyte replacement - Recommend decongestant to prevent excessive movement with cough/sneezing - MRIB: Negative for any acute findings - EEG completed, to be read today. Primary team to follow-up with Dr. Jesus on 05/19/2025 for recommendations Other medical problems to be managed as per primary team recommendations. Thank you for the consult. Neurology will continue to follow the case with you Plan of care discussed with attending Neurologist Dr Jesus, - Sam Kolb M.D. PGY3 Disclaimer: Minor errors in pickling drum operator may be present as this note was dictated using voice recognition software. Attending Provider Attestation/Addendum I personally have seen and examined the patient at the bedside and I agreed with the resident's findings, assessment and plan of care. His breakthrough seizures are most likely related to low sodium. Continue with appropriate management of hyponatremia and keep the Keppra at the same dose of 500 mg twice a day. Will watch for any breakthrough seizures. Recommend addition of melatonin to help with the sleep.
[2025-05-18] MEDS: levETIRAcetam LIQD 500 MG/5 ML UDC PO (20:17)
[2025-05-18] MEDS: MELATONIN 3 MG TABLET 6 MG PO (20:17)
[2025-05-18 22:54] LABS: Sodium 124 mMol/L (136-145)
[2025-05-19] VITALS (8 sets, daily range): BP systolic 115–144; BP diastolic 67–83; PULSE 21–82; RESP 13–69; TEMP 35.7–36; O2SAT 95–100; BMI 39.2
[2025-05-19 05:33] LABS: Basophils # (Auto) 0.0 Thou/mm3 (0.0-0.2); Basophils % (Auto) 0 % (0-2.5); Eosinophils # (Auto) 0.1 Thou/mm3 (0.0-0.5); Eosinophils % (Auto) 0 % (0-10); Hematocrit 33.1 % (41.0-53.0); Hemoglobin 11.6 g/dL (13.5-16.0); Immature Granulocytes Auto 0.05 Thou/mm3 (0.00-0.00); Lymphocytes # (Auto) 8.4 Thou/mm3 (1.0-4.8); Lymphocytes % (Auto) 62 % (10-50); Mean Corpuscular HGB Conc 35.0 g/dl (31.0-37.0); Mean Corpuscular Hemoglobin 32.1 pg (25.0-35.0); Mean Corpuscular Volume 92 fL (80-100); Monocytes # (Auto) 0.8 Thou/mm3 (0.0-0.8); Monocytes % (Auto) 6 % (0-12); Neutrophils # (Auto) 4.2 Thou/mm3 (1.8-7.7); Neutrophils % (Auto) 31 % (37-80); Nucleated Red Blood Cell # 0.00 Thou/mm3 (0.00-0.00); Nucleated Red Blood Cell % 0 /100 WBC (0); Platelet Count 137 Thou/mm3 (140-440); RDW Standard Deviation 43.9 fL (35.1-43.9); Red Blood Count 3.61 Miln/mm3 (4.50-5.90); White Blood Count 13.5 Thou/mm3 (3.8-10.6)
[2025-05-19 05:49] LABS: Alanine Aminotransferase 34 U/L (10-49); Albumin, Serum 3.9 gm/dL (3.4-4.8); Albumin/Globulin Ratio 1.6 (1.2-2.2); Alkaline Phosphatase 120 U/L (46-116); Anion Gap 7 (7-16); Aspartate Amino Transferase 34 U/L (0-34); BUN/Creatinine Ratio 16 Ratio (12-20); Bilirubin,Total 0.4 mg/dL (0.3-1.2); Blood Urea Nitrogen 13 mg/dL (9-23); Calcium 9.1 mg/dL (8.3-10.6); Calcium (Corrected) 9.2 mg/dL (8.5-10.1); Carbon Dioxide 31.3 mMol/L (20.0-31.0); Chloride 86 mMol/L (98-107); Creatinine (Component) 0.8 mg/dL (0.6-1.3); Estimated Creatinine Clearance 113.3 mL/min (>60); Globulin 2.4 gm/dL (2.3-3.5); Glucose 84 mg/dL (74-106); Magnesium 1.5 mg/dL (1.6-2.6); Osmolality,Calculated 248 (275-295); Phosphorous 3.8 mg/dL (2.4-5.1); Potassium 4.6 mMol/L (3.4-5.1); Sodium 124 mMol/L (136-145); Total Protein 6.3 gm/dL (5.7-8.2); eGFR > 60 See Note
[2025-05-19 06:20] LABS: Glucose Estimated Average 94 mg/dL (80-131); Hemoglobin A1C 4.9 % Hgb (4.8-6.0)
[2025-05-19 07:25] LABS: Path Review Blood Smear Sent to Pathologist
[2025-05-19] MEDS: levETIRAcetam LIQD 500 MG/5 ML UDC PO ×2 (08:14→20:34)
[2025-05-19] MEDS: ENOXAPARIN SOD INJ 40 MG/0.4 ML SYRINGE SC (08:14)
[2025-05-19] MEDS: SODIUM CHLORIDE 1 GM TABLET PO ×3 (08:14→20:34)
[2025-05-19] MEDS: Magnesium Sulfate 2 GM Ivpb 2 GM/50 ML BAG IV (08:14)
[2025-05-19] MEDS: PANTOPRAZOLE 40 MG TABLET PO (08:14)
[2025-05-19] MEDS: ACETAMINOPHEN 325 MG TABLET 650 MG PO (09:52)
[2025-05-19 10:39] LABS: Sodium 124 mMol/L (136-145)
--- NOTE | 2025-05-19 10:56 | ESPR_ITS ---
Documentation for date of: 05/19/25 Subjective Subjective Interval history: Seen patient this morning, Slept well last night. No seizures overnight. Endorses mild headache this morning. Nurse reports no agitation or behavioral concerns. Patient states cough is better; non observed during visit. Reports watery eyes, says this has been an issue for a while. No chest pain, no dyspnea, no nausea/vomiting. Exam Vital Signs Temp Pulse Resp BP Pulse Ox O2 Del Method O2 Flow Rate 96.2 F L 62 13 144/83 H 100 Nasal Cannula 2 05/19/25 08:00 05/19/25 08:00 05/19/25 08:00 05/19/25 08:00 05/19/25 08:00 05/19/25 08:00 05/19/25 08:00 Narrative Exam General: The patient is awake, alert, and oriented to self and place, despite a baseline cognitive delay. He is in no acute distress and is cooperative throughout the exam. Head: Normocephalic, atraumatic. Eyes: PERRLA, no scleral icterus. The patient reports watery eyes today, which have been a chronic issue but denies any redness or discharge. Neck: Cervical collar in place. Lungs: Clear to auscultation bilaterally, no wheezing or rales. Cardiovascular: Regular rhythm, no murmurs, no gallops. Abdomen: Soft, non-tender, non-distended. Bowel sounds normal. No guarding or rebound. Extremities: No edema. Full range of motion in upper extremities. Chronic bilateral lower extremity weakness, no acute findings. Neurologic: Alert and oriented to self and place. Cranial nerves intact. Speech clear, appropriate. Weakness in bilateral lower extremities, strong upper extremities, sensation intact. Skin: Warm, dry, intact. No new rashes or lesions. Psychiatric: Cooperative, pleasant mood, and affect. Objective Labs 05/20/25 04:35 05/20/25 04:35 Labs: Laboratory Results - last 24 hr 05/18/25 05/18/25 05/18/25 11:06 16:07 22:16 WBC RBC Hgb Hct MCV MCH MCHC RDW Std Deviation Plt Count Neut % (Auto) Lymph % (Auto) [place] % (Auto) Eos % (Auto) Baso % (Auto) Neut # (Auto) Lymph # (Auto) [place] # (Auto) Eos # (Auto) Baso # (Auto) Immature Gran # (Auto) Absolute Nucleated RBC Immature Gran % Nucleated RBC % Smear Path Review Sodium 122 L 124 L Potassium Chloride Carbon Dioxide Anion Gap BUN Creatinine Estim Creat Clear Calc eGFR BUN/Creatinine Ratio Glucose Estimated Ave Glu mg/dL Hemoglobin A1c Calculated Osmolality Calcium Corrected Calcium Phosphorus Magnesium Total Bilirubin AST ALT Alkaline Phosphatase Total Protein Albumin Globulin Albumin/Globulin Ratio Ur Collection Type Catheter Urine Color Lt-Yellow Urine Clarity Clear Urine pH 6.5 Ur Specific [place] 1.014 Urine Protein Negative Urine Glucose (UA) Negative Urine Ketones Negative Urine Blood Negative Urine Nitrite Negative Urine Bilirubin Negative Urine Urobilinogen (Auto) Negative Ur Leukocyte Esterase Negative Urine RBC < 1 Urine WBC 1 Ur Squamous Epith Cells 0 Urine Bacteria None Hyaline Casts < 1 Ur Culture Indicated? Not Indicated 05/19/25 05/19/25 04:38 10:01 WBC 13.5 H RBC 3.61 L Hgb 11.6 L Hct 33.1 L MCV 92 MCH 32.1 MCHC 35.0 RDW Std Deviation 43.9 Plt Count 137 L Neut % (Auto) 31 L Lymph % (Auto) 62 H [place] % (Auto) 6 Eos % (Auto) 0 Baso % (Auto) 0 Neut # (Auto) 4.2 Lymph # (Auto) 8.4 H [place] # (Auto) 0.8 Eos # (Auto) 0.1 Baso # (Auto) 0.0 Immature Gran # (Auto) 0.05 H Absolute Nucleated RBC 0.00 Immature Gran % 0 Nucleated RBC % 0 Smear Path Review Sent to Pathologist Sodium 124 L 124 L Potassium 4.6 Chloride 86 L Carbon Dioxide 31.3 H Anion Gap 7 BUN 13 Creatinine 0.8 Estim Creat Clear Calc 113.3 eGFR > 60 BUN/Creatinine Ratio [address] Glu mg/dL 94 Hemoglobin A1c 4.9 Calculated Osmolality 248 L Calcium 9.1 Corrected Calcium 9.2 Phosphorus 3.8 Magnesium 1.5 L Total Bilirubin 0.4 AST 34 ALT 34 Alkaline Phosphatase 120 H Total Protein 6.3 Albumin 3.9 Globulin 2.4 Albumin/Globulin Ratio 1.6 Ur Collection Type Urine Color Urine Clarity Urine pH Ur Specific [place] Urine Protein Urine Glucose (UA) Urine Ketones Urine Blood Urine Nitrite Urine Bilirubin Urine Urobilinogen (Auto) Ur Leukocyte Esterase Urine RBC Urine WBC Ur Squamous Epith Cells Urine Bacteria Hyaline Casts Ur Culture Indicated? Quality Measures Quality Measures VTE prophylaxis Advance care planning discussed with:: patient Assessment & Plan Assessment Current Active Medications: Generic Name Dose Route Start Last Admin Trade Name Freq PRN Reason Stop Dose Admin Acetaminophen 650 mg 05/18/25 12:07 05/19/25 09:52 Acetaminophen 325 Mg Tablet PO 06/17/25 12:06 650 mg Q6H PRN Administration Fever >100.4 or pain Enoxaparin Sodium 40 mg 05/19/25 09:00 05/19/25 08:14 Enoxaparin Sod Inj 40 Mg/0.4 Ml Syringe SC 06/02/25 08:59 40 mg QDAY ARJUN Administration Levetiracetam 500 mg 05/18/25 21:00 05/19/25 08:14 Levetiracetam Liqd 500 Mg/5 Ml Udc PO 06/17/25 20:59 500 mg BID ARJUN Administration Melatonin 6 mg 05/18/25 21:00 05/18/25 20:17 Melatonin 3 Mg Tablet PO 06/17/25 20:59 6 mg HS ARJUN Administration Midazolam HCl 2 mg 05/18/25 12:36 Midazolam Inj 1 Mg/Ml Vial 2 Ml IVP 05/23/25 12:35 Q1HR PRN breakthrough seizure Ondansetron HCl 4 mg 05/18/25 12:07 05/18/25 19:15 Ondansetron Inj 2 Mg/Ml Inj 2 Ml IVP 06/17/25 12:06 4 mg Q6H PRN Administration NAUSEA OR VOMITING Protocol Pantoprazole Sodium 40 mg 05/19/25 09:00 05/19/25 08:14 Pantoprazole 40 Mg Tablet PO 06/18/25 08:59 40 mg QDAY ARJUN Administration Plan 70-year-old male with a history of epilepsy, C1 fracture, and cognitive delay, admitted for breakthrough seizure likely due to hyponatremia (Na 124) and recent Keppra dose reduction, now stable with sodium correction and tolerating Keppra 500 mg BID, improving clinically. # Breakthrough Seizure likely 2/2 to hyponatremia Single tonic?clonic seizure today Now at baseline Likely precipitated by AED reduction and low sodium. Plan: * Continue Keppra 500 mg BID for now. * Seizure precautions. * Neuro checks q4h. * Neurology consult with Dr. Jesus for long-term AED plan. * Monitor for recurrent events. # Hypo-osmolality and hyponatremia likely 2/2 to SIADH vs medication Na 122, serum osm 245 consistent with SIADH? Hypo-osmolar hyponatremia likely from SIADH due to Abilify? recent dose change Chronic hyponatremic Improving slowly from 122 -> 124. Urine lytes pending; Plan: * Fluid restriction 1.5 L/day. * Give one salt tablet now * Na checks Q6 hours * Follow urine sodium (pending). * Will consider holding Abilify if sodium worsens. # Chronic cough Long-standing wet cough Afebrile; CXR without pneumonia Recently on azithromycin. Plan: * Continue supportive management. * Monitor for fever or new hypoxia. # First-Degree AV Block (asymptomatic) AL 255 ms; asymptomatic; likely chronic. Plan: * Telemetry monitoring. * Avoid AV aimee blockers. * No treatment needed unless rhythm changes. # C1 Fracture (chronic, non-operative) In cervical collar since Next CT 05/29. Plan: * Keep collar on at all times. * Continue fall precautions. * Manage pain conservatively. # Cognitive Delay # Behavioral Changes Baseline mental delay Behavioral issues led to AED taper and Abilify increase. Plan: * Hold Abilify 15 mg for now. * Reassess need if SIADH confirmed. * Maintain routines; involve caregiver in care. Health maintenance: Disposition: Admit to telemetry Feeding: Regular diet Thromboprophylaxis: Lovenox GI Prophylaxis: N/A Code Status: Full code ----- Plan discussed with attending physician Dr. Remington Goldberg MD PGY-1 Internal Medicine Attending Provider Attestation/Addendum I have examined the patient, reviewed labs and imaging findings, discussed the case with the resident(s), and reviewed entered orders. I agree with the plan of care as outlined in this note, with these additional summaries/recommendations: Patient seen at bedside. No acute overnight events. Patient seen eating breakfast and tolerating well. He has no new symptoms to report but is anxious to see the orthopedic physician in regards to this cervical collar. Continue antiepileptics for breakthrough seizure. Pending EEG/imaging. Continue seizure precautions. In-house neurology following. Patient was found to have acute on chronic hypoosmolar hyponatremia. Patient was given 1 tab sodium chloride this morning and will follow-up repeat sodium level. Patient endorses 8 out of 10 chronic neck pain. Continue pain management. Continue home Abilify when able. Patient updated on the plan and agreement. All questions answered to satisfaction. Please see residents note for additional details and management. Dr. Remington MD
[2025-05-19] MEDS: ONDANSETRON INJ 2 MG/ML INJ 2 ML 4 MG IVP (12:10)
--- NOTE | 2025-05-19 14:30 | PC.SS ---
Update: Neurology is consulting. Plan to correct electrolytes. D/C tomorrow.
[2025-05-19 17:06] LABS: Sodium 124 mMol/L (136-145)
--- NOTE | 2025-05-19 18:48 | ESPR_ITS ---
Documentation for date of: 05/19/25 Subjective Subjective Interval history: Mr. Das is a 70-year-old male with past history of seizure disorder, wheelchair-bound due to bilateral lower extremity weakness, and recent C1 fracture currently in cervical collar, who was brought in from his residential after a tonic-clonic seizure was witnessed in the morning which lasted for about 2-3 minutes at the facility. At admission, labs showed hyponatremia of 122, previous documented sodium levels 133?134. Patient has also had behavioral issues at the facility as per caregiver. Per patient, he has poor sleep and has been taken off his medication. 05/18/2025 @1900: Patient appears calm, able to move his extremities. AO x 3, euvolemic, following commands. On chart review, patient was previously on aripiprazole nightly which was discontinued on 05/08/2025. Will start melatonin for now to help with sleep issues. Primary team has resumed home Keppra, tolerating well. Patient is severely congested, producing thick phlegm and significant nasal discharge, will need decongestant. 05/19/2025 @1800: Patient AO x 3, uncomfortable in bed attempting to sit upright. He was counseled on remaining on bedrest as cervical collar still in place. Patient endorses having a good nights rest last night, please continue melatonin at this time. He is also restless and would like his possible works for mental stimulation, recommend following up with [facility] for the same. No acute home visit noted today, [facility] providers usually have daily visits for the patients. EEG completed, neurology will read today and provide primary team with recommendations. If negative may discharge tomorrow. Exam Vital Signs Temp Pulse Resp BP Pulse Ox O2 Del Method O2 Flow Rate 96.8 F 72 15 133/82 H 100 Nasal Cannula 2 05/19/25 16:00 05/19/25 16:00 05/19/25 16:00 05/19/25 16:00 05/19/25 16:00 05/19/25 16:00 05/19/25 16:00 Narrative Exam General: Awake, answers questions appropriately despite baseline cognitive delay. Head: Normocephalic, atraumatic. Eyes: PERRLA; no scleral icterus. Neck: C-collar in place; cannot assess JVD. Lungs: Much less congestive on auscultation today, no respiratory distress. Cardiac: Regular rhythm, no murmurs. Abdomen: Soft, non-tender, nondistended. Extremities: No edema. Moves UE well; chronic bilateral LE weakness. Neuro: Alert; oriented to self; speech clear; no focal deficits new from baseline. Skin: Warm, dry, intact. Objective Labs 05/20/25 04:35 05/20/25 04:35 Labs: Laboratory Results - last 24 hr 05/18/25 05/19/25 05/19/25 22:16 04:38 10:01 WBC 13.5 H RBC 3.61 L Hgb 11.6 L Hct 33.1 L MCV 92 MCH 32.1 MCHC 35.0 RDW Std Deviation 43.9 Plt Count 137 L Neut % (Auto) 31 L Lymph % (Auto) 62 H [place] % (Auto) 6 Eos % (Auto) 0 Baso % (Auto) 0 Neut # (Auto) 4.2 Lymph # (Auto) 8.4 H [place] # (Auto) 0.8 Eos # (Auto) 0.1 Baso # (Auto) 0.0 Immature Gran # (Auto) 0.05 H Absolute Nucleated RBC 0.00 Immature Gran % 0 Nucleated RBC % 0 Smear Path Review Sent to Pathologist Sodium 124 L 124 L 124 L Potassium 4.6 Chloride 86 L Carbon Dioxide 31.3 H Anion Gap 7 BUN 13 Creatinine 0.8 Estim Creat Clear Calc 113.3 eGFR > 60 BUN/Creatinine Ratio [address] Glu mg/dL 94 Hemoglobin A1c 4.9 Calculated Osmolality 248 L Calcium 9.1 Corrected Calcium 9.2 Phosphorus 3.8 Magnesium 1.5 L Total Bilirubin 0.4 AST 34 ALT 34 Alkaline Phosphatase 120 H Total Protein 6.3 Albumin 3.9 Globulin 2.4 Albumin/Globulin Ratio 1.6 05/19/25 16:30 WBC RBC Hgb Hct MCV MCH MCHC RDW Std Deviation Plt Count Neut % (Auto) Lymph % (Auto) [place] % (Auto) Eos % (Auto) Baso % (Auto) Neut # (Auto) Lymph # (Auto) [place] # (Auto) Eos # (Auto) Baso # (Auto) Immature Gran # (Auto) Absolute Nucleated RBC Immature Gran % Nucleated RBC % Smear Path Review Sodium 124 L Potassium Chloride Carbon Dioxide Anion Gap BUN Creatinine Estim Creat Clear Calc eGFR BUN/Creatinine Ratio Glucose Estimated Ave Glu mg/dL Hemoglobin A1c Calculated Osmolality Calcium Corrected Calcium Phosphorus Magnesium Total Bilirubin AST ALT Alkaline Phosphatase Total Protein Albumin Globulin Albumin/Globulin Ratio Quality Measures Quality Measures VTE prophylaxis Advance care planning discussed with:: patient Assessment & Plan Assessment Current Active Medications: Generic Name Dose Route Start Last Admin Trade Name Freq PRN Reason Stop Dose Admin Acetaminophen 650 mg 05/18/25 12:07 05/19/25 09:52 Acetaminophen 325 Mg Tablet PO 06/17/25 12:06 650 mg Q6H PRN Administration Fever >100.4 or pain Enoxaparin Sodium 40 mg 05/19/25 09:00 05/19/25 08:14 Enoxaparin Sod Inj 40 Mg/0.4 Ml Syringe SC 06/02/25 08:59 40 mg QDAY ARJUN Administration Levetiracetam 500 mg 05/18/25 21:00 05/19/25 08:14 Levetiracetam Liqd 500 Mg/5 Ml Udc PO 06/17/25 20:59 500 mg BID ARJUN Administration Melatonin 6 mg 05/18/25 21:00 05/18/25 20:17 Melatonin 3 Mg Tablet PO 06/17/25 20:59 6 mg HS ARJUN Administration Midazolam HCl 2 mg 05/18/25 12:36 Midazolam Inj 1 Mg/Ml Vial 2 Ml IVP 05/23/25 12:35 Q1HR PRN breakthrough seizure Ondansetron HCl 4 mg 05/18/25 12:07 05/19/25 12:10 Ondansetron Inj 2 Mg/Ml Inj 2 Ml IVP 06/17/25 12:06 4 mg Q6H PRN Administration NAUSEA OR VOMITING Protocol Pantoprazole Sodium 40 mg 05/19/25 09:00 05/19/25 08:14 Pantoprazole 40 Mg Tablet PO 06/18/25 08:59 40 mg QDAY ARJUN Administration Plan Patient is a 70-year-old male brought in due to breakthrough seizure at residential. Breakthrough seizure Likely due to Hypotonic hyponatremia, moderate History of seizure disorder In the setting of Recent C1 fracture Insomnia Recommendations: - Please continue home dose Keppra 500 mg twice a day. Watch for any breakthrough seizures, seizure precautions in place. - Recommend continuing of melatonin 6 mg HS for insomnia, patient tolerating well - Acute hyponatremia likely the cause for breakthrough seizures. Recommend continuing Na correction at a goal of 4-6 mmol in 24 hours. [ Na 122 -> 124 in the last 24 hours ] - MRIB: Negative for any acute findings - EEG testing completed. Primary team to follow-up with Dr. Jesus on 05/20/2025 for recommendations, if negative, may discharge back to facility - Pt is restless and would like his possible works for mental stimulation, recommend following up with [facility] for the same. Other medical problems to be managed as per primary team recommendations. Thank you for the consult. Neurology will continue to follow the case with you Plan of care discussed with attending Neurologist Dr Jesus, - Sam Kolb M.D. PGY3 Disclaimer: Minor errors in equipment operat0r may be present as this note was dictated using voice recognition software. Attending Provider Attestation/Addendum Personally have seen and examined the patient at the bedside and agree with resident's findings, assessment and plan of care. Will continue with the Keppra at the same dose. Sodium level is normalized. The patient is stable for discharge back to the [facility]. Will see him in my office as scheduled.
[2025-05-19] MEDS: MELATONIN 3 MG TABLET 6 MG PO (20:34)
[2025-05-19 22:35] LABS: Sodium 127 mMol/L (136-145)
[2025-05-19 23:19] LABS: Bilirubin,Urine Negative (Negative); Blood,Urine Negative (Negative); Chloride,Urine Random 29.0 mMol/L (55.0-125.0); Clarity,Urine Clear (Clear/Hazy); Color,Urine Colorless (Lt Yel-Yel); Glucose, Urine Negative (Negative); Ketones,Urine Negative (Negative); Leukocyte Esterase,Urine Negative (Negative); Nitrite,Urine Negative (Negative); PH,Urine 7.0 (5.0-7.0); Potassium,Urine Random 13 mMol/L (12-62); Protein,Urine Negative (Neg - Trace); Sodium,Urine Random 25.7 mMol/L (20.0-110.0); Specific Gravity,Urine 1.003 (1.001-1.035); Urobilinogen,Urine Negative mg/dL (0.0-1.0)
[2025-05-20] VITALS (7 sets, daily range): BP systolic 111–145; BP diastolic 68–96; PULSE 67–100; RESP 11–96; TEMP 35.9–36.4; O2SAT 95–100; BMI 39.4
[2025-05-20 04:58] LABS: Basophils # (Auto) 0.0 Thou/mm3 (0.0-0.2); Basophils % (Auto) 0 % (0-2.5); Eosinophils # (Auto) 0.1 Thou/mm3 (0.0-0.5); Eosinophils % (Auto) 1 % (0-10); Hematocrit 34.6 % (41.0-53.0); Hemoglobin 12.1 g/dL (13.5-16.0); Immature Granulocytes Auto 0.02 Thou/mm3 (0.00-0.00); Lymphocytes # (Auto) 7.7 Thou/mm3 (1.0-4.8); Lymphocytes % (Auto) 68 % (10-50); Mean Corpuscular HGB Conc 35.0 g/dl (31.0-37.0); Mean Corpuscular Hemoglobin 32.4 pg (25.0-35.0); Mean Corpuscular Volume 93 fL (80-100); Monocytes # (Auto) 0.6 Thou/mm3 (0.0-0.8); Monocytes % (Auto) 5 % (0-12); Neutrophils # (Auto) 3.0 Thou/mm3 (1.8-7.7); Neutrophils % (Auto) 26 % (37-80); Nucleated Red Blood Cell # 0.00 Thou/mm3 (0.00-0.00); Nucleated Red Blood Cell % 0 /100 WBC (0); Platelet Count 138 Thou/mm3 (140-440); RDW Standard Deviation 45.6 fL (35.1-43.9); Red Blood Count 3.74 Miln/mm3 (4.50-5.90); White Blood Count 11.4 Thou/mm3 (3.8-10.6)
[2025-05-20] MEDS: guaiFENesin SYRUP 200 MG/10 ML UDC 100 MG PO (04:59)
[2025-05-20 05:21] LABS: Alanine Aminotransferase 35 U/L (10-49); Albumin, Serum 4.0 gm/dL (3.4-4.8); Albumin/Globulin Ratio 1.5 (1.2-2.2); Alkaline Phosphatase 116 U/L (46-116); Anion Gap 5 (7-16); Aspartate Amino Transferase 35 U/L (0-34); BUN/Creatinine Ratio 13 Ratio (12-20); Bilirubin,Total 0.4 mg/dL (0.3-1.2); Blood Urea Nitrogen 10 mg/dL (9-23); Calcium 9.0 mg/dL (8.3-10.6); Calcium (Corrected) 9.0 mg/dL (8.5-10.1); Carbon Dioxide 33.5 mMol/L (20.0-31.0); Chloride 92 mMol/L (98-107); Creatinine (Component) 0.8 mg/dL (0.6-1.3); Estimated Creatinine Clearance 113.6 mL/min (>60); Globulin 2.6 gm/dL (2.3-3.5); Glucose 91 mg/dL (74-106); Magnesium 1.7 mg/dL (1.6-2.6); Osmolality,Calculated 259 (275-295); Phosphorous 3.3 mg/dL (2.4-5.1); Potassium 4.3 mMol/L (3.4-5.1); Sodium 130 mMol/L (136-145); Total Protein 6.6 gm/dL (5.7-8.2); eGFR > 60 See Note
[2025-05-20] MEDS: ENOXAPARIN SOD INJ 40 MG/0.4 ML SYRINGE SC (08:53)
[2025-05-20] MEDS: PANTOPRAZOLE 40 MG TABLET PO (08:54)
[2025-05-20] MEDS: SODIUM CHLORIDE 1 GM TABLET PO (08:54)
[2025-05-20] MEDS: levETIRAcetam LIQD 500 MG/5 ML UDC PO (08:54)
--- NOTE | 2025-05-20 13:10 | ESDS_ITS ---
<Statement entered by Matt Astorga MD - 05/20/25 15:54> I have personally seen and examined the patient, agree with residents assessment and plan Patient plan of care was discussed with the attending physician, Dr. Remington Astorga, PGY2 Planned Discharge Date 05/20/25 DS: Providers Provider Date of admission: 05/18/25 12:07 Primary care physician: Monty Paulson MD Admitting Provider: Jevon Luther DO Attending Provider on Admission: Kalia Macedo MD Consults: 05/18/25 17:22 Consult to Neurology / Tele-Neurology Routine Comment: Consulting Provider: Cristobal Jesus Attending Provider on DC: Kalia Macedo MD Discharging Provider: Urmila Goldberg MD DS: Diagnosis Problem List Completed Was Problem List Reviewed/Reconciled?: Yes Hospital Course Hospital Course Hospital course: 70-year-old male with a history of seizure disorder, cognitive delay, and C1 fracture who was admitted on 05/18/2025 following a tonic-clonic seizure likely triggered by hyponatremia (Na 122) and Keppra dose reduction. The patient was started on Keppra 500 mg BID, and his sodium was corrected with sodium tablets (target sodium goal achieved). Hyponatremia improved from 122 -> 130, and the patient became neurologically stable post-seizure. The sodium correction was followed by fluid restriction and continued monitoring of electrolytes. Neurology reviewed the case, resuming Keppra and initiating melatonin 6 mg nightly for sleep. The CPAP settings were reviewed to rule out respiratory alkalosis, and a decongestant was prescribed to help with congestion. The patient remained seizure-free after the initial episode, with no further seizures or focal neurological deficits observed. His sodium levels, while improving, continue to trend upward. His urine sodium was lower than expected (25.7). Urine electrolytes were obtained after sodium supplementation, which reflected low sodium and potassium in the urine. The patient was neurologically stable, with no further seizures or episodes of agitation. The caregivers were educated on seizure precautions and the importance of monitoring sodium levels post-discharge. Diagnosis During Admission: # Breakthrough Seizure likely 2/2 to hyponatremia # Hypo-osmolality and hyponatremia likely 2/2 to SIADH vs medication # Chronic cough # First-Degree AV Block (asymptomatic) # C1 Fracture (chronic, non-operative) # Cognitive Delay # Behavioral Changes Discharge Instructions: -Follow-up with PCP within 1 week of discharge. If you do not have appointment, please follow-up with the located within [facility] with Dr. Astorga. Call [phone] to make an appointment. -Recommended to take sodium chloride tablet 1000mg once daily for 1week and follow up with PCP for sodium checks and continue based on the results -Recommended to take Aripiprazole and Keppra 500mg twice daily as prescribed by your neurologist -Recommended fluid restriction of 1500ml -Recommended to follow up with Dr. Jesus within 1week of discharge -Continue rest of the home medications -Follow up with your doctor for neck fracture -Return to ED if symptoms persist or return ----- Plan discussed with attending physician Dr. Macedo and senior resident Dr. Gauri Goldberg MD PGY-1 Internal Medicine Time Spent with Patient Time attestation: Total time spent providing and/or coordinating discharge services: Time spent: Greater than 30 minutes Exam Vital Signs Temp Pulse Resp BP Pulse Ox O2 Del Method O2 Flow Rate 97.5 F 67 20 122/68 97 Room Air 30 05/20/25 12:00 05/20/25 12:00 05/20/25 12:00 05/20/25 12:00 05/20/25 12:00 05/20/25 12:00 05/20/25 02:02 Narrative Exam General: Awake, answers questions appropriately despite baseline cognitive delay. Head: Normocephalic, atraumatic. Eyes: PERRLA; no scleral icterus. Neck: C-collar in place; cannot assess JVD. Lungs: Much less congestive on auscultation today, no respiratory distress. Cardiac: Regular rhythm, no murmurs. Abdomen: Soft, non-tender, nondistended. Extremities: No edema. Moves UE well; chronic bilateral LE weakness. Neuro: Alert; oriented to self; speech clear; no focal deficits new from baseline. Skin: Warm, dry, intact. Discharge Plan Plan Patient Disposition: Xfer Skilled [facility] (SNF) Patient condition on transfer: Stable Care Plan Goals: -Follow-up with PCP within 1 week of discharge. If you do not have appointment, please follow-up with the located within [facility] with Dr. Astorga. Call [phone] to make an appointment. -Recommended to take sodium chloride tablet 1000mg once daily for 1week and follow up with PCP for sodium checks and continue based on the results -Recommended to take Aripiprazole and Keppra 500mg twice daily as prescribed by your neurologist -Recommended fluid restriction of 1500ml -Recommended to follow up with Dr. Jesus within 1week of discharge -Continue rest of the home medications -Follow up with your doctor for neck fracture -Return to ED if symptoms persist or return Prescriptions/Referrals Prescriptions/Med Rec: New sodium chloride 1,000 mg tablet,soluble 1,000 mg PO QDAY Qty: 10 0RF Continued cholecalciferol (vitamin D3) [Vitamin D3] 50 mcg (2,000 unit) tablet 50 mcg PO QDAY mirabegron 25 mg tablet extended release 24 hr 25 mg PO QDAY loratadine [Allergy Relief (loratadine)] 10 mg tablet 10 mg PO Q24H magnesium hydroxide [Milk of Magnesia] 400 mg/5 mL suspension 30 ml PO QDAY PRN (Reason: constipation) acetaminophen 500 mg tablet 500 mg PO Q4H PRN (Reason: fever or pain) bisacodyl 10 mg suppository 10 mg VA QDAY PRN (Reason: constipation) benzonatate 100 mg capsule 100 mg PO Q8HR PRN (Reason: cough) albuterol sulfate 90 mcg/actuation HFA aerosol inhaler 1 puff INHALATION Q4H PRN (Reason: shortness of breath or wheezing) Changed ibuprofen 600 mg tablet 600 mg PO QDAY Qty: 10 0RF levetiracetam [Keppra] 1,000 mg tablet 500 mg PO BID Qty: 60 0RF aripiprazole 5 mg tablet 15 mg PO QDAY Qty: 10 0RF Referrals: Monty Paulson MD [Primary Care Provider, Family Practice] Patient/Caregiver Discharge Instructions Education Materials: Treating Epilepsy: Medicines, Discharge Instructions for Epilepsy, Hyponatremia Dc Print Language: Ivorian Stand Alone Forms: Clara Award Info., Patient Portal Info Letter Discharge Order Discharge Orders: Discharge (Routine); Ordered 05/20/25 Ordered By: Matt Astorga Quality Discharge Quality Measures VTE prophylaxis Attestestation Attestation I have examined the patient, reviewed labs and imaging findings, discussed the case with the resident(s), and reviewed entered orders. I agree with the plan of care as outlined in this note. Time Spent: [address] Remington MD
--- NOTE | 2025-05-20 13:36 | PC.SS ---
DYNAMITE SHOOTER conducted phone contact with [facility] staff, Vida ; informing staff that patient is ready for discharge. [facility] to provide transport for the patient. DYNAMITE SHOOTER updated bedside nurse.
[2025-05-25 07:08] LABS: Osmolality, Serum* 277 mOsm/kg (278-305)
== END 2025-05-20 14:57 | disposition skilled nursing facility (03) | DRG 101 ==
LOC: SERX 11:26 → SERHOLD 12:33 → S2NX 14:45
PROVIDERS: Emergency Medicine; Admitting Provider Student in an Organized Health Care Education/Training Program; PCP Family Medicine; Visit Provider Student in an Organized Health Care Education/Training Program
DX: G40.409 Other generalized epilepsy and epileptic syndromes, not intractable, without status epilepticus (principal); E87.1 Hypo-osmolality and hyponatremia; Z99.3 Dependence on wheelchair; R05.3 Chronic cough; I44.0 Atrioventricular block, first degree; M54.2 Cervicalgia; G89.29 Other chronic pain; F91.9 Conduct disorder, unspecified; G47.00 Insomnia, unspecified; Z79.899 Other long term (current) drug therapy
CPT/HCPCS: 36415; 71045; 80053; 81001; 81003; 82436; 83036; 83735; 83930; 83935; 84100; 84133; 84295; 84300; 85025; 85610; 87502; 87635; 93005; 94660; 96374; 96375; 96376; 99283; J1650; J1953; J2405; J3475; A9270

== ENCOUNTER → 2025-05-27 | Outpatient (CLI) | payer MEDICARE, MEDICAID, SELFPAY ==
--- NOTE | 2025-05-27 11:30 | XR_ITS ---
Examination: CT cervical spine without contrast 2-D sagittal reconstructions 2-D coronal reconstructions 3-D reconstructions. Exam date and time: May 27, 2025, 1208 hours, comparison April 01, 2025 INDICATIONS: History neck fracture 6 months ago, partial healing fracture anterior ring C1 extending into the lateral mass C1 on CT cervical spine April 01, 2025 CTDI:vol (mGy) 20 DLP: (mGycm) 538 Technique: Multiple 2 mm axial sections of the cervical spine have been obtained. The coronal and sagittal reconstructions have been obtained. 3-D reconstructions have been obtained. Low dose protocols were performed. One or more of the following dose reduction techniques were used; automated exposure control, adjustment of the mA and/or KV according to patient size, use of iterative reconstruction technique. Findings: Adequate alignment cervical vertebral bodies on the lateral view Odontoid is intact Significant healing fracture anterior ring C1 extending into the lateral mass of C1 Adequate alignment posterior spinous processes Mild disc narrowing C4-C5 IMPRESSION: Significant healing of the fracture anterior right ring of C1 extending into the lateral mass on the right C1
== END | disposition home or self-care (01) ==
LOC: CCTX 11:57
PROVIDERS: PCP Family Medicine; Referring Provider Family Medicine; Visit Provider Family Medicine
DX: S12.000D Unspecified displaced fracture of first cervical vertebra, subsequent encounter for fracture with routine healing (principal); X58.XXXD Exposure to other specified factors, subsequent encounter
CPT/HCPCS: 72125

== ENCOUNTER 2025-06-03 08:27 | Emergency (ER) | payer MEDICARE, MEDICAID, SELFPAY ==
[2025-06-03 08:31] VITALS: PULSE 60; O2SAT 96
--- NOTE | 2025-06-03 08:37 | PD.EDSEIZ ---
ED Seizures RME/HPI General Chief Complaint: Seizure Stated Complaint: SEIZURE Time Seen by Provider: 06/03/25 08:34 Arrival date/time: 06/03/25 08:27 RME / HPI RME / HPI Narrative: 70 year old male with history of epilepsy, cognitive delay, wheelchair-bound, currently in a c-collar for C1 fracture and was managed nonoperatively presents to the ED BIBA from intermediate for evaluation following a seizure today. Per medics, staff there reported 3 absent seizures and when they had arrived had an additional absent seizure. They described the patients head and eyes to have rolled back and not responsive. Given 4mg IN Versed by medics. No tonic clonic movements reported. In the ED, the patient is awake and answering questions. He reports compliance with medications and denies missing doses. No other complaints or associated symptoms reported. Related Data Home Medications ?Medication ?Instructions ?Recorded ?Confirmed acetaminophen 500 mg tablet 500 mg PO Q4H PRN fever or pain 05/18/25 05/18/25 albuterol sulfate 90 mcg/actuation 1 puff inhalation Q4H PRN 05/18/25 05/18/25 aerosol inhaler shortness of breath or wheezing benzonatate 100 mg capsule 100 mg PO Q8HR PRN cough 05/18/25 05/18/25 bisacodyl 10 mg rectal suppository 10 mg GA QDAY PRN constipation 05/18/25 05/18/25 cholecalciferol (vitamin D3) 50 50 mcg PO QDAY 05/18/25 05/18/25 mcg (2,000 unit) tablet (Vitamin D3) loratadine 10 mg tablet (Allergy 10 mg PO Q24H 05/18/25 05/18/25 Relief (loratadine)) magnesium hydroxide 400 mg/5 mL 30 ml PO QDAY PRN constipation 05/18/25 05/18/25 oral suspension (Milk of Magnesia) mirabegron 25 mg tablet,extended 25 mg PO QDAY 05/18/25 05/18/25 release 24 hr Previous Rx's ?Medication ?Instructions ?Recorded aripiprazole 5 mg tablet 15 mg (3 x 5 mg) PO QDAY #10 tabs 05/20/25 ibuprofen 600 mg tablet 600 mg PO QDAY #10 tabs 05/20/25 levetiracetam 1,000 mg tablet 500 mg (1/2 x 1,000 mg) PO BID #60 05/20/25 (Keppra) tabs sodium chloride 1,000 mg soluble 1,000 mg PO QDAY #10 tabs 05/20/25 tablet Allergies Allergy/AdvReac Type Severity Reaction Status Date / Time No Known Allergies Allergy Verified 06/03/25 08:41 Review of Systems Review of Systems Systems Reviewed: All systems reviewed, normal except as documented Past Medical History Past Medical History NEUROLOGIC: Positive Neurological Disorders, Seizures and Epilepsy MUSCULOSKELETAL: Positive Musculoskeletal Disorders and Fractures (C1 fx) PSYCHO/SOCIAL: Positive Schizophrenia OTHER HISTORY: Positive Falls Surgical History SURGICAL: Positive Tonsillectomy Social History SMOKING STATUS: Former smoker ED Exam Narrative Physical exam: Generally patient is alert in no obvious distress neck shows C-spine collar to be in place, heart regular rate and rhythm, lungs clear to auscultation and equal bilaterally, abdomen soft obese nontender, neurologic exam shows the patient be alert and oriented without focal motor deficit, skin is cool pale and dry. Course Quality Measures none Orders Category Date Time Status BMP [Basic Metabolic Panel] Stat Lab 06/03/25 09:00 Completed CBC Stat Lab 06/03/25 09:00 Completed levETIRAcetam INJ [Keppra Inj] Med 06/03/25 08:40 Discontinued 1,000 mg IVP X1 ONE Vital Signs Vital signs: Vital Signs Temperature 98.1 F 06/03/25 08:42 Pulse Rate 56 L 06/03/25 08:42 Respiratory Rate 19 06/03/25 08:42 Blood Pressure 90/59 L 06/03/25 08:42 Pulse Oximetry (%) 98 06/03/25 08:42 Oxygen Delivery Method Room Air 06/03/25 08:42 Seizure MDM Narrative MDM Narrative:: Lillian Tomlinson, zach scribing for and in the presence of Dr. Nair. I investigated the patient's past medical history in the computer. Patient has a known seizure disorder and had recent hospitalization after seizure was thought to be provoked by hyponatremia. Patient has been compliant with his Keppra. Sodium today was 127. Patient given Keppra 1000 mg IV. Patient resides in a intermediate. Patient is stable for discharge to continue his Keppra at 500 mg twice a day. Follow-up with his doctor. Return to ER as needed or if condition worsens. Patient data External records reviewed:: [facility] previous records (I reviewed admission from 05/18-05/20 for breakthrough seizure and acute hyponatremia (Na 122)), EMS form and Long Term records (I reviewed intermediate pmhx and medication list ) Clinical information provided by:: patient and EMS Social determinants that could affect healthcare access:: housing (intermediate resident ) Patient has the following chronic illnesses:: epilepsy, cognitive delay, wheelchair-bound, currently in a c-collar for C1 fracture and was managed nonoperatively How is presenting disease/condition affected by chronic disease/condition?: exacerbated by Evaluation data The following diagnostics were reviewed and interpreted by me:: lab results Lab and/or radiology exams considered but not ordered:: None Interpretation Summary: None Medications / Prescriptions Medications or Prescriptions considered but not ordered:: None Medication administrations:: Medication Administration History Discontinued Medications Levetiracetam (Levetiracetam Inj 100 Mg/Ml Vial 5ml) 1,000 mg IVP X1 ONE Stop: 06/03/25 08:41 Last Admin: 06/03/25 08:53 Dose: 1,000 mg Documented By: VL None Consultations Consultation(s) initiated? (list below): No Diagnosis Seizure Differential Diagnosis: intractable seizure disorder, focal seizure, generalized seizure, epileptic seizure and status epilepticus Most likely diagnosis given after review of the tests above:: None Admission Indicated Admission indicated?: not indicated Admission Request Was there a request for admission?: No Disposition Plan Disposition Plan: Discharge Discharge Attestation Discharge Attestation: The patient and all family members were given an opportunity to ask questions and understood the discharge instructions. Discharge instructions specifically effects, indications for sooner follow up or return to the emergency department, and the expected course of current diagnosis. Patient condition: Stable Discharge Plan Plan Patient Disposition: HOME (Self Care) Prescriptions/Referrals Prescriptions/Med Rec: No Action cholecalciferol (vitamin D3) [Vitamin D3] 50 mcg (2,000 unit) tablet 50 mcg PO QDAY mirabegron 25 mg tablet extended release 24 hr 25 mg PO QDAY loratadine [Allergy Relief (loratadine)] 10 mg tablet 10 mg PO Q24H magnesium hydroxide [Milk of Magnesia] 400 mg/5 mL suspension 30 ml PO QDAY PRN (Reason: constipation) acetaminophen 500 mg tablet 500 mg PO Q4H PRN (Reason: fever or pain) bisacodyl 10 mg suppository 10 mg GA QDAY PRN (Reason: constipation) benzonatate 100 mg capsule 100 mg PO Q8HR PRN (Reason: cough) albuterol sulfate 90 mcg/actuation HFA aerosol inhaler 1 puff INHALATION Q4H PRN (Reason: shortness of breath or wheezing) ibuprofen 600 mg tablet 600 mg PO QDAY Qty: 10 0RF levetiracetam [Keppra] 1,000 mg tablet 500 mg PO BID Qty: 60 0RF aripiprazole 5 mg tablet 15 mg PO QDAY Qty: 10 0RF sodium chloride 1,000 mg tablet,soluble 1,000 mg PO QDAY Qty: 10 0RF Referrals: Monty Paulson MD [Primary Care Provider, Family Practice] - In 1 week Problem List Clinical Impression: Recurrent seizures, Chronic hyponatremia Patient/Caregiver Discharge Instructions Education Materials: ED Hyponatremia, ED Seizure, Recurrent (Adult) Additional Instructions: Continue all current medications. Follow-up with your doctor. Return to ER as needed or if condition worsens. Print Language: Ivorian Stand Alone Forms: Clara Award Info., Patient Portal Info Letter
[2025-06-03 08:41] VITALS: BMI 32.5
[2025-06-03 08:42] VITALS: BP 90/59; PULSE 56; RESP 19; TEMP 36.7; O2SAT 98
[2025-06-03] MEDS: levETIRAcetam INJ 100 MG/ML VIAL 5ML 1000 MG IVP (08:53)
--- NOTE | 2025-06-03 09:06 | PC.NURSE ---
PATIENT BIBA FROM [facility] FOR SEIZURE THAT WAS WITNESSED. PATIENT HAD ABOUT 3 WITHIN 10 MINUTES AT FACILITY. PATIENT HAD ONE MORE POSSIBLE ABSENT SEIZURES AND WAS GIVEN VERSED 4MG INTRANASAL EN ROUTE. PATIENT IS ALERT AND ORIENTED. VITALS WITHIN NORMAL LIMITS BESIDES SOFT BLOOD PRESSURE. PATIENT GIVEN IV KEPPRA PER DR. CASTILLO ORDER. PLAN OF CARE ONGOING. CAREGIVER AT BEDSIDE
[2025-06-03 09:14] LABS: Basophils # (Auto) 0.0 Thou/mm3 (0.0-0.2); Basophils % (Auto) 0 % (0-2.5); Eosinophils # (Auto) 0.0 Thou/mm3 (0.0-0.5); Eosinophils % (Auto) 0 % (0-10); Hematocrit 35.7 % (41.0-53.0); Hemoglobin 12.4 g/dL (13.5-16.0); Immature Granulocytes Auto 0.02 Thou/mm3 (0.00-0.00); Lymphocytes # (Auto) 5.3 Thou/mm3 (1.0-4.8); Lymphocytes % (Auto) 57 % (10-50); Mean Corpuscular HGB Conc 34.7 g/dl (31.0-37.0); Mean Corpuscular Hemoglobin 31.7 pg (25.0-35.0); Mean Corpuscular Volume 91 fL (80-100); Monocytes # (Auto) 0.4 Thou/mm3 (0.0-0.8); Monocytes % (Auto) 5 % (0-12); Neutrophils # (Auto) 3.6 Thou/mm3 (1.8-7.7); Neutrophils % (Auto) 38 % (37-80); Nucleated Red Blood Cell # 0.00 Thou/mm3 (0.00-0.00); Nucleated Red Blood Cell % 0 /100 WBC (0); Platelet Count 131 Thou/mm3 (140-440); RDW Standard Deviation 44.3 fL (35.1-43.9); Red Blood Count 3.91 Miln/mm3 (4.50-5.90); White Blood Count 9.3 Thou/mm3 (3.8-10.6)
[2025-06-03 09:31] LABS: Anion Gap 8 (7-16); BUN/Creatinine Ratio 14 Ratio (12-20); Blood Urea Nitrogen 14 mg/dL (9-23); Calcium 8.7 mg/dL (8.3-10.6); Carbon Dioxide 30.4 mMol/L (20.0-31.0); Chloride 89 mMol/L (98-107); Creatinine (Component) 1.0 mg/dL (0.6-1.3); Estimated Creatinine Clearance 82.3 mL/min (>60); Glucose 104 mg/dL (74-106); Osmolality,Calculated 255 (275-295); Potassium 4.5 mMol/L (3.4-5.1); Sodium 127 mMol/L (136-145); eGFR > 60 See Note
[2025-06-03 09:40] VITALS: BP 105/71; PULSE 63; RESP 16; O2SAT 97
[2025-06-03 10:13] VITALS: BP 134/79; PULSE 53; RESP 19; O2SAT 96
--- NOTE | 2025-06-03 10:49 | PC.SS ---
Addendum entered by Laurence Fontaine 06/03/25 11:40: SS follow up note; SS was contacted by Shaunna from [facility]. ETA was set for 1300. Shaunna informed SS if they have dispatch be available sooner they will transport patient sooner. SS updated patient's nurse and child care team lead, Calvin as well. Original Note: SS was contacted by patients nurseChelly set up transportation through [facility] transport, Reference # [id number].
--- NOTE | 2025-06-03 11:41 | PC.SS ---
SS follow up note; SS attempted to meet with patient, however patient was in dialysis at the time.
[2025-06-03 11:58] VITALS: BP 156/94; PULSE 63; RESP 18; TEMP 36.5; O2SAT 99
== END 2025-06-03 13:26 | disposition home or self-care (01) ==
PROVIDERS: Emergency Provider Emergency Medicine; PCP Family Medicine
DX: G40.909 Epilepsy, unspecified, not intractable, without status epilepticus (principal); E87.1 Hypo-osmolality and hyponatremia
CPT/HCPCS: 36415; 80048; 85025; 96374; 99283; J1953

== ENCOUNTER 2025-06-04 08:53 | Inpatient (IN) | payer MEDICARE, MEDICAID, SELFPAY ==
[2025-06-04 09:20] VITALS: BP 99/51; PULSE 56; RESP 17; TEMP 36.4; O2SAT 96
[2025-06-04 09:23] VITALS: BMI 36.6
[2025-06-04 09:30] LABS: Basophils # (Auto) 0.0 Thou/mm3 (0.0-0.2); Basophils % (Auto) 0 % (0-2.5); Eosinophils # (Auto) 0.0 Thou/mm3 (0.0-0.5); Eosinophils % (Auto) 0 % (0-10); Hematocrit 35.7 % (41.0-53.0); Hemoglobin 12.4 g/dL (13.5-16.0); Immature Granulocytes Auto 0.03 Thou/mm3 (0.00-0.00); Lymphocytes # (Auto) 7.7 Thou/mm3 (1.0-4.8); Lymphocytes % (Auto) 55 % (10-50); Mean Corpuscular HGB Conc 34.7 g/dl (31.0-37.0); Mean Corpuscular Hemoglobin 32.0 pg (25.0-35.0); Mean Corpuscular Volume 92 fL (80-100); Monocytes # (Auto) 0.9 Thou/mm3 (0.0-0.8); Monocytes % (Auto) 6 % (0-12); Neutrophils # (Auto) 5.2 Thou/mm3 (1.8-7.7); Neutrophils % (Auto) 38 % (37-80); Nucleated Red Blood Cell # 0.00 Thou/mm3 (0.00-0.00); Nucleated Red Blood Cell % 0 /100 WBC (0); Platelet Count 147 Thou/mm3 (140-440); RDW Standard Deviation 45.1 fL (35.1-43.9); Red Blood Count 3.87 Miln/mm3 (4.50-5.90); White Blood Count 13.8 Thou/mm3 (3.8-10.6)
[2025-06-04] MEDS: levETIRAcetam INJ 100 MG/ML VIAL 5ML 1500 MG IVP (09:33)
--- NOTE | 2025-06-04 09:38 | XR_ITS ---
AP portable semiupright chest film on 06/04/2025 at 9:43 a.m. CLINICAL INDICATION: Shortness of breath for 3 days Comparison study 05/18/2025 FINDINGS: There is major elevation of the right hemidiaphragm which is unchanged. This very well probably relates to congenital eventration of the diaphragm which is of no concern. There is chronic linear thickening of the minor fissure consistent with a minimal amount of chronic fluid/fibrosis. There is another very thin linear strand of discoid atelectasis at the right lateral lung base. There is a huge mass density behind the heart measuring as much is 10 cm in diameter at the lower margin of this large mass extends below the left hemidiaphragm. It is almost certainly related to a huge enormous gastric hiatal hernia, but at this point I cannot totally exclude other possibilities There is a noncalcified pulmonary nodule seen laterally in the left midlung measuring 12 mm in diameter. This was not present on the previous chest film. In all other areas both lungs are clear There is very heavy atherosclerotic calcification involving the entire thoracic aorta. There is moderate cardiomegaly noted IMPRESSION: 1. Mild-moderate cardiomegaly remains unchanged, there is extremely arthroscopic indication in the thoracic aorta 2 there is chronic eventration of the right hemidiaphragm, variation of normal anatomy of no concern 3 there are 2 thin horizontal linear strands of fibrosis in the right mid and lower lung of no major concern 4. There appears to be a huge probable gastric hiatal hernia located behind the left side of the heart 5 there is a small noncalcified 12 mm diameter nodule seen laterally in the left midlung. This was not present on the previous chest film. Therefore I cannot exclude the possibility that this might be an early cancer. 6 I would strongly recommend a chest CT. This would allow confirmation that the huge mass behind the heart is a benign but huge gastric hiatal hernia, and that it does not relate to a large mass of other etiology. A chest CT would also allow confirmation and evaluation of the tiny pulmonary nodule seen laterally in the left lung, which is a new finding 7. There is very significant S-shaped scoliosis of the spine convexity to the right in the upper dorsal region into the left at the dorsolumbar region this is unchanged
--- NOTE | 2025-06-04 09:39 | EDNOTE_ITS ---
ED General RME/HPI General Chief complaint: Seizure Stated complaint: SEIZURE, LAST SEIZURE AT 0824 Time Seen by Provider: 06/04/25 09:00 Arrival date/time: 06/04/25 08:53 Related Data Home Medications ?Medication ?Instructions ?Recorded ?Confirmed acetaminophen 500 mg tablet 500 mg PO Q4H PRN fever or pain 05/18/25 05/18/25 albuterol sulfate 90 mcg/actuation 1 puff inhalation Q 4H PRN 05/18/25 05/18/25 aerosol inhaler shortness of breath or wheez ing benzonatate 100 mg capsule 100 mg PO Q8HR PRN cough 05/18/25 bisacodyl 10 mg rectal suppository 10 mg [place] QDAY PRN c onstipation 05/18/25 05/18/25 cholecalciferol (vitamin D3) 50 50 mcg PO QDAY 5 05/18/25 mcg (2,000 unit) tablet (Vitamin D3) loratadine 10 mg tablet (Allergy 10 mg PO Q24H 5 05/18/25 Relief (loratadine)) magnesium hydroxide 400 mg/5 mL 30 ml PO QDAY PRN cons tipation 05/18/25 05/18/25 oral suspension (Milk of Magnesia) mirabegron 25 mg tablet,extended 25 mg PO QDAY 5 05/18/25 release 24 hr Previous Rx's ?Medication ?Instructions ?Recorded aripiprazole 5 mg tablet 15 mg (3 x 5 mg) PO QDAY #10 tabs 05/20/25 ibuprofen 600 mg tablet 600 mg PO QDAY #10 tabs 04/26 12/17 levetiracetam 1,000 mg tablet 500 mg (1/2 x 1,000 mg) PO BID #60 05/20/25 (Keppra) tabs sodium chloride 1,000 mg soluble 1,000 mg PO QDAY #10 tabs 05/20/25 tablet Allergies Allergy/AdvReac Type Severity Reaction Status Date / Time No Known Allergies Allergy Verified 06/04/25 08:54 ED Exam Narrative Physical exam: Physical Exam: GENERAL: Awake, answering questions appropriately, morbidly obese HEENT: NC/AT. Moist mucosa. PERRLA/EOMI. Has a c-collar on for C1 fracture. Poor dentition with missing teeth CARDIO: Heart RRR, no obvious murmurs, no JVD. PULM: No coughing or visible SOB. Lungs CTA B/L. GI: Abdomen soft, obese, mildly distended but some tenderness noted diffusely but otherwise no guarding, rigidity or rebound tenderness noted. Borborygmi apparent SKIN/MSK/EXT: No wounds/discoloration/rashes/edema/amputations. +Pedal pulses present B/L. NEURO: Oriented x3, Moves extremities x4, no focal neurologic deficits noted Course Quality Measures none Orders Category Date Time Status Bedside Blood Glucose NOW Care 06/04/25 09:06 Active Bedside COVID-19 Antigen Test NOW Care 06/04/25 09:37 Active COVID-19 Screening Questionnaire NOW Care 06/04/25 11:14 Active Decision to Admit X1 Care 06/04/25 11:14 Active Insert IV NOW Care 06/04/25 09:06 Active Consult to Neurology / Tele-Neurology Stat Cons 06/04/25 09:00 Active CXRP [XR chest 1V portable] Stat Exams 06/04/25 09:38 Completed CBC Stat Lab 06/04/25 09:22 Completed CMP [Comprehensive Metabolic Panel] Stat Lab 06/04/25 09:22 Completed Urinalysis, C/S if Indicated Stat Lab 06/04/25 09:38 Ordered levETIRAcetam INJ [Keppra Inj] Med 06/04/25 09:29 Discontinued 1,500 mg IVP X1 ONE levETIRAcetam [Keppra] Med 06/04/25 21:00 Active 1,000 mg PO BID levETIRAcetam [Keppra] Med 06/04/25 09:23 Discontinued 1,500 mg PO X1 ONE EEG Awake and Drowsy Routine RT 06/04/25 09:14 Ordered Vital Signs Vital signs: Vital Signs Temperature 97.6 F 06/04/25 09:20 Pulse Rate 56 L 06/04/25 09:20 Respiratory Rate 17 06/04/25 09:20 Blood Pressure 99/51 L 06/04/25 09:20 Pulse Oximetry (%) 96 06/04/25 09:20 Oxygen Delivery Method Room Air 06/04/25 09:20 Discharge Plan Plan Patient Disposition: Admit Acute Care w/in Hospital Prescriptions/Referrals Prescriptions/Med Rec: No Action cholecalciferol (vitamin D3) [Vitamin D3] 50 mcg (2,000 unit) tablet 50 mcg PO QDAY mirabegron 25 mg tablet extended release 24 hr 25 mg PO QDAY loratadine [Allergy Relief (loratadine)] 10 mg tablet 10 mg PO Q24H magnesium hydroxide [Milk of Magnesia] 400 mg/5 mL suspension 30 ml PO QDAY PRN (Reason: constipation) acetaminophen 500 mg tablet 500 mg PO Q4H PRN (Reason: fever or pain) bisacodyl 10 mg suppository 10 mg [place] QDAY PRN (Reason: constipation) benzonatate 100 mg capsule 100 mg PO Q8HR PRN (Reason: cough) albuterol sulfate 90 mcg/actuation HFA aerosol inhaler 1 puff INHALATION Q4H PRN (Reason: shortness of breath or wheezing) ibuprofen 600 mg tablet 600 mg PO QDAY Qty: 10 0RF levetiracetam [Keppra] 1,000 mg tablet 500 mg PO BID Qty: 60 0RF aripiprazole 5 mg tablet 15 mg PO QDAY Qty: 10 0RF sodium chloride 1,000 mg tablet,soluble 1,000 mg PO QDAY Qty: 10 0RF Referrals: Monty Paulson MD [Primary Care Provider, Family Practice] - In 1 week Problem List Clinical Impression: Recurrent seizures Patient/Caregiver Discharge Instructions Print Language: Vietnamese Stand Alone Forms: [facility] Award Info., Patient Portal Info Letter MDM Narrative MDM hospital course (for use when minimal MDM required): HPI: 70-year-old male past medical history of seizures, developmental delay, OHS/GERALDO on CPAP, recent C1 fracture on c-collar presenting from a assisted [facility] on 06/04 for recurrent breakthrough seizures on antiepileptic medication. Of note, patient was to be seen by a neurologist Dr. Jesus for follow-up after he was recently discharged on 05/20 for hyponatremia induced seizures. Patient apparently per director of campus recreation at bedside had 2 episodes of seizures the first 1 lasted 6 minutes the other 1 around 20 minutes. Keyboard Operator notes that the patient slumped over with his eyes rolled back and became unresponsive during these episodes. Patient has been in at the assisted since July 2024; moreover, he used to be at a different assisted in [place] before that. At this time, patient is answering questions appropriately and states that he has a headache and some shortness of breath; ever, denies having any chest pain, dizziness, vomiting or diarrhea. On examination, please refer to the physical exam above; patient presented mildly hypotensive 99/51, heart rate of 56, respiratory of 17, afebrile satting 96 on room air. Bedside glucose was 105; CBC showed leukocytosis with elevated lymphocytes, WBC 13.8 with 55% lymphocytes. Normocytic anemia. CMP pending at this time. #Recurrent, breakthrough seizures Patient's neurologist, Dr. Mercedes Gamboa is requesting admission for this patient for further workup Recommendation is to increase patient's Keppra to 1000 mg twice daily from 500 mg twice daily and to load the patient with 1500 mg of Keppra EEG will be obtained for further assessment of recurrent breakthrough seizures Xray shows a small noncalcified 12 mm diameter nodule in the left midlung and a huge mass behind the heart which likely hiatal hernia but radiologist is requesting a CT Chest Plan: Will call hospitalist team for admission for close follow-up Follow-up with CT Chest to r/o above findings U/A pending Patient seen and assessed with attending Dr. Adams Jenkins, DO PGY-2 Internal Medicine - GME Medication Administration(s) Medication Administration History Levetiracetam (Levetiracetam 250 Mg Tablet) 1,000 mg PO BID ARJUN Stop: 07/04/25 20:59 Discontinued Medications Levetiracetam (Levetiracetam 250 Mg Tablet) 1,500 mg PO X1 ONE Stop: 06/04/25 09:24 Last Admin: 06/04/25 09:35 Dose: Not Given Documented By: ANASTACIA Non-Admin Reason: Discontinued Levetiracetam (Levetiracetam Inj 100 Mg/Ml Vial 5ml) 1,500 mg IVP X1 ONE Stop: 06/04/25 09:30 Last Admin: 06/04/25 09:33 Dose: 1,500 mg Documented By: ANASTACIA
[2025-06-04 09:50] LABS: Alanine Aminotransferase 18 U/L (10-49); Albumin, Serum 4.3 gm/dL (3.4-4.8); Albumin/Globulin Ratio 1.6 (1.2-2.2); Alkaline Phosphatase 119 U/L (46-116); Anion Gap 7 (7-16); Aspartate Amino Transferase 21 U/L (0-34); BUN/Creatinine Ratio 15 Ratio (12-20); Bilirubin,Total 0.5 mg/dL (0.3-1.2); Blood Urea Nitrogen 20 mg/dL (9-23); Calcium 8.8 mg/dL (8.3-10.6); Calcium (Corrected) 8.8 mg/dL (8.5-10.1); Carbon Dioxide 30.6 mMol/L (20.0-31.0); Chloride 90 mMol/L (98-107); Creatinine (Component) 1.3 mg/dL (0.6-1.3); Estimated Creatinine Clearance 69.3 mL/min (>60); Globulin 2.7 gm/dL (2.3-3.5); Glucose 114 mg/dL (74-106); Osmolality,Calculated 260 (275-295); Potassium 4.7 mMol/L (3.4-5.1); Sodium 128 mMol/L (136-145); Total Protein 7.0 gm/dL (5.7-8.2); eGFR 60 See Note
[2025-06-04 12:26] LABS: Collection Type, Urine Clean Catch
[2025-06-04 12:34] LABS: Bilirubin,Urine Negative (Negative); Blood,Urine Negative (Negative); Clarity,Urine Clear (Clear/Hazy); Color,Urine Lt-Yellow (Lt Yel-Yel); Culture Indicated,Urine Not Indicated; Glucose, Urine Negative (Negative); Hyaline Casts,Urine < 1 /hpf (0-1); Ketones,Urine Negative (Negative); Leukocyte Esterase,Urine Negative (Negative); Nitrite,Urine Negative (Negative); PH,Urine 6.5 (5.0-7.0); Protein,Urine Trace (Neg - Trace); RBC,Urine 4 /hpf (0-3); Specific Gravity,Urine 1.020 (1.001-1.035); Squamous Epithelial Cell,Urine 1 /hpf (0-5); Urobilinogen,Urine Negative mg/dL (0.0-1.0); WBC,Urine 2 /hpf (0-5)
[2025-06-04 12:52] VITALS: BP 120/72; PULSE 64; RESP 15; TEMP 36.6; O2SAT 98
--- NOTE | 2025-06-04 14:34 | PC.NURSE ---
maksim buckner [phone]
--- NOTE | 2025-06-04 14:35 | PD.RESCONSUL ---
HPI Data of Consult Requesting Physician: Kalia Macedo MD Admitting Provider: Kalia Macedo MD Attending Provider: Kalia Macedo MD Primary Care Provider: Monty Paulson MD Consult Narrative Reason for consult: Intractable partial complex seizures, sent from Dr. Jesus's office History of present illness: Patient is a 70-year-old male with a history of seizure disorder, cognitive delay, wheelchair bound, and C1 fracture with C-spine collar on who presented to the ED on 06/04/2025 after having 2 seizures this morning with the first one lasting about 7 minutes followed by one that lasted about 15 minutes per caregiver. Patient was being seen at Dr. Jesus's office and was waiting in the waiting room, sitting in a chair and all of a sudden slumped over to the side, not responding to voice. Patient denies any loss of urination or tongue biting today. Notably, yesterday patient had 4 [id number] seizures after taking a shower which was accompanied with loss of urine and tongue biting, per caregiver. He was brought to the ED, given additional IV Keppra and discharged home, at that time sodium being 127. He was also recently discharged on 05/20 for admission of breakthrough seizures secondary to hyponatremia of 122 and was discharged with Keppra 500 mg twice daily along with sodium 1 g qday tablets and patient states that he has been compliant with his medications. Patient states that he has a mild headache; endorsed thigh, chest, abdominal soreness as well. Denies any fever, chest pain, dyspnea, dysuria. Patient recently has had Keppra dose tapered down due to behavioral issues. He was previously on 1500 mg, recently decreased to 1000 mg, and latest was on 500 mg. Patient was recommended by neurology to be admitted to the hospital for observation of intractable partial complex seizures, loading with Keppra and monitoring of sodium level. cc:: cc: Kalia Macedo MD Past Medical History Past Medical History Comments PMH COMMENT: Past Medical History: Seizure disorder, cognitive delay, wheelchair bound, and C1 fracture with C-spine collar Surgical History: None reported Family History: Unknown Social History: Lives at half-way with caretakers, at current [facility] home since July 2024; Denies history of smoking, denies current alcohol use, denies recreational drug use Current Medications: Levetiracetam 500 mg BID, sertraline 50 mg qday, aripiprazole 15 mg qday, sodium chloride 1000 mg qday, mirabegron 25 mg qday, benzonatate 100 mg q8h prn, bisacodyl 10 mg [place] qday prn, Milk of Magnesia 30 ml qday prn, acetaminophen 650 mg q4h prn, albuterol sulfate q4h prn, loratadine 10 mg qday prn (Source: [employer]) Allergies: No known drug allergies Exam Vital Signs Temp Pulse Resp BP Pulse Ox O2 Del Method 97.9 F 64 15 120/72 98 Room Air 06/04/25 12:52 06/04/25 12:52 06/04/25 12:52 06/04/25 12:52 06/04/25 12:52 06/04/25 12:52 Narrative Exam Physical Exam General: Awake and in no acute distress. Answers questions appropriately. With cognitive delay. HEENT: Normocephalic, atraumatic, mucous membranes moist. C-spine collar present. Heart: Regular rate and rhythm, normal S1 and S2, no murmurs. Lungs: Clear to auscultation with no wheezing or crackles. Abdomen: Soft, obese, nondistended, nontender, positive bowel sounds. ?No guarding or rebound tenderness. Neurologic: Alert and oriented x3, no gross neurological deficit, and patient able to move all 4 extremities. Extremities: No edema. Skin: No rash or ecchymoses. Results Labs 06/07/25 05:44 06/07/25 05:44 Labs: Short CBC 06/04/25 Range/Units 09:22 WBC 13.8 H D (3.8-10.6) Thou/mm3 Hgb 12.4 L (13.5-16.0) g/dL Hct 35.7 L (41.0-53.0) % Plt Count 147 (140-440) Thou/mm3 BMP 06/04/25 09:22 Sodium 128 L Potassium 4.7 Chloride 90 L Carbon Dioxide 30.6 BUN 20 Creatinine 1.3 Glucose 114 H Calcium 8.8 Liver Function 06/04/25 Range/Units 09:22 Total Bilirubin 0.5 (0.3-1.2) mg/dL AST 21 (0-34) U/L ALT 18 (10-49) U/L Alkaline Phosphatase 119 H (46-116) U/L Albumin 4.3 (3.4-4.8) gm/dL Urine 06/04/25 Range/Units 11:56 Urine Color Lt-Yellow (Lt Yel-Yel) Urine Clarity Clear (Clear/Hazy) Urine pH 6.5 (5.0-7.0) Ur Specific [place] 1.020 (1.001-1.035) Urine Protein Trace (Neg - Trace) Urine Glucose (UA) Negative (Negative) Quality Measures Quality Measures none Advance care planning discussed with:: patient and other Medications Home Medications and Allergies Home Medications ?Medication ?Instructions ?Recorded ?Confirmed ?Type acetaminophen 500 mg tablet 650 mg PO Q4H PRN fever or pain 05/18/25 06/05/25 History albuterol sulfate 90 mcg/actuation 1 puff inhalation Q4H PRN 05/18/25 06/05/25 History aerosol inhaler shortness of breath or wheezing benzonatate 100 mg capsule 100 mg PO Q8HR PRN cough 05/18/25 06/05/25 History bisacodyl 10 mg rectal suppository 10 mg [place] QDAY PRN constipation 05/18/25 06/05/25 History cholecalciferol (vitamin D3) 50 50 mcg PO QDAY 05/18/25 06/05/25 History mcg (2,000 unit) tablet (Vitamin D3) loratadine 10 mg tablet (Allergy 10 mg PO Q24H 05/18/25 06/05/25 History Relief (loratadine)) magnesium hydroxide 400 mg/5 mL 30 ml PO QDAY PRN constipation 05/18/25 06/05/25 History oral suspension (Milk of Magnesia) mirabegron 25 mg tablet,extended 25 mg PO QDAY 05/18/25 06/05/25 History release 24 hr ibuprofen 600 mg tablet 600 mg PO TID 06/05/25 06/05/25 History sertraline 50 mg tablet 50 mg PO QDAY 06/05/25 06/05/25 History Allergies Allergy/AdvReac Type Severity Reaction Status Date / Time No Known Allergies Allergy Verified 06/04/25 08:54 Visit Medications Acetaminophen (Acetaminophen 325 Mg Tablet) 650 mg PO Q6H PRN PRN Reason: PAIN OR FEVER > 100.4 Stop: 07/04/25 13:00 Enoxaparin Sodium (Enoxaparin Sod Inj 40 Mg/0.4 Ml Syringe) 40 mg [place] QDAY ARJUN Stop: 06/19/25 08:59 Levetiracetam (Levetiracetam 250 Mg Tablet) 1,000 mg PO BID ARJUN Stop: 07/04/25 20:59 Lorazepam (Lorazepam 2 Mg/Ml Vial) 2 mg IVP Q5MIN PRN PRN Reason: SEIZURES Stop: 06/09/25 13:00 Ondansetron HCl (Ondansetron Inj 2 Mg/Ml Inj 2 Ml) 4 mg IVP Q6H PRN; Protocol PRN Reason: NAUSEA OR VOMITING Stop: 07/04/25 13:00 Discontinued Medications Levetiracetam (Levetiracetam 250 Mg Tablet) 1,500 mg PO X1 ONE Stop: 06/04/25 09:24 Last Admin: 06/04/25 09:35 Dose: Not Given Levetiracetam (Levetiracetam Inj 100 Mg/Ml Vial 5ml) 1,500 mg IVP X1 ONE Stop: 06/04/25 09:30 Last Admin: 06/04/25 09:33 Dose: 1,500 mg Assessment & Plan Plan 70-year-old male with a history of seizure disorder, cognitive delay, wheelchair bound, and C1 fracture with C-spine collar on who presented to the ED on 06/04/2025 after having 2 seizures this morning with the first one lasting about 7 minutes followed by one that lasted about 15 minutes per caregiver. After being seen in the office patient was recommended by neurology to be admitted to the hospital for observation of intractable partial complex seizures, loading with Keppra and monitoring of sodium level. #Breakthrough intractable partial complex seizures Recent uncontrolled seizures possibly precipitated by Keppra reduction and low sodium. Patient was loaded with 1,500 mg Keppra in ED. -Seizure precautions -Continue Keppra at 1000 mg BID dose -Monitor and correct sodium -EEG #Hypoosmolar euvolemic hyponatremia Appears to be chronic. Differentials include secondary to SIADH, patient on aripiprazole, other medications side effect such as the Keppra. In ED on admission 06/04, Na 128, serum osm 260, euvolemic. Urine sodium is 33.1 which is less indicative of SIADH. Patient has been on sodium tablets once daily. -Agree with the fluid restriction 1.8 L/day -Continue aripiprazole -Continue Keppra at 1000 mg BID -Continue sodium chloride tablets 1 g qday, may need to increase to BID Patient was discussed with the Neurology attending, Dr. Jesus. Thank you for allowing us to participate in the care of this patient. Sheela Cerrato, PGY-3 Attending Provider Attestation/Addendum I personally have seen and examined the patient at the bedside and I agreed with resident's findings, assessment and plan of care. Continue with Keppra 1000 mg bid and close monitoring of his sodium. Sz Precaution FU with EEG.
--- NOTE | 2025-06-04 15:21 | ESHP_ITS ---
<Statement entered by Jose Manuel MD - 06/04/25 16:47> 70-year-old male with history of developmental delay, epilepsy, chronic hyponatremia, and C1 fracture who is being admitted for refractory seizures. Patient unable to provide accurate history and so history obtained from chart review. He comes from a longterm ([facility]) and noted to have had multiple seizures today lasting 7 minutes and 15 minutes respectively. Apparently patient was at his neurologist's office in the waiting room when he was experiencing a seizure and EMS was called and he was brought to the ED. Per EMS, upon arrival eyes rolled back and was not responsive. Give 4 mg of IM Versed and upon arrival to ED he was awake and answering questions. Of note, he had multiple seizures the day prior after taking a shower per caregiver and was brought to the ED, given additional IV keppra and discharged home. He was also recently discharged on 05/20 for same etiology and was discharged with Keppra 1 g twice daily and patient states that he has been compliant with his medications. In ED, pulse 56 and BP 99/51 but otherwise afebrile and on room air. Labs show WBC 13.8 (increased from 9 day prior), stable hemoglobin. Chem panel showing chronic hypotonic hyponatremia but otherwise unremarkable. CXR dit not show signs of aspiration but noted to have possible gastric hernia and pulmonary nodule. Will be admitted for breakthrough seizures. Neurology consulted, restarted on home keppra dose with PRN ativan placed for additional breakthrough seizures, and follow-up EEG and neurology recommendations. ----- Note reviewed and agree with care plan as documented. Please refer to the note below for further details. Plan discussed with attending physician Dr. Remington Manuel MD PGY-2 Internal Medicine Documentation for date of: 06/04/25 HPI History of Present Illness History of present illness: 70-year-old male with a history of seizure disorder, cognitive delay, wheel chair bound and C1 fracture with C-spine collar on who presented after having 2 seizures this morning that lasted about 7 followed by one that lasted about 15 minutes per caregiver. Patient was being seen at Dr. Jesus's office and was waiting in the waiting room, sitting in a chair and all of a sudden slumped over to the side, not-responding to voice. Patient denies any loss of urination, tongue biting today. Notably, yesterday patient had 4 [id number] seizures after taking a shower which was accompanied with loss of urine and tongue biting, per caregiver. Patient states that he has a mild headache; endorsed thigh, chest, abdominal soreness as well. Denies any fever, chest pain (besides the soreness), dyspnea, dysuria. Patient recently discharged on 05/20 for hyponatremia induced seizures. On discharge, Neurology reviewed the case, resuming Keppra to 500 mg BID and initiating melatonin 6 mg nightly for sleep. His sodium levels, while improving, continue to trend upward and was prescribed salt tablets. Patient has been in at the longterm since July 2024; at different longterm in [place] before that. Past Medical History: ABOVE Surgical History: none reported Social History: Lives at longterm with care takers; Denies history of smoking, denies current alcohol use, denies recreational drug use Current Medications: (Source: ) Allergies: No known drug allergies ED Course: Vitals on presentation include temperature 7.6, pulse 56 respiratory rate 17, blood pressure saturating 96% oxygen on room air. Labs were significant for WBC 13.8, hemoglobin 12.4, sodium 128, chloride 90, calculated osmolality 260 Imaging includes chest x-ray showed mild to moderate cardiomegaly that is unchanged eventration of the right hemidiaphragm 2 thin horizontal linear strands of fibrosis in the right mid and lower lung, probable gastric hiatal hernia, 12 mm noncalcified nodule, scoliosis Given in ED: Keppra 1500 mg IV x 1 Patient was admitted for breakthrough seizures Review of Systems Review of systems otherwise negative except what is mentioned above. Exam Vital Signs Temp Pulse Resp BP Pulse Ox O2 Del Method 97.9 F 64 15 120/72 98 Room Air 06/04/25 12:52 06/04/25 12:52 06/04/25 12:52 06/04/25 12:52 06/04/25 12:52 06/04/25 12:52 Narrative Exam General: No acute distress; A&Ox3; C-spine collar present Skin: Warm, dry, intact, no obvious rash. HENT: NCAT, EOMI/PERRL, not icteric. External ears normal. No rhinorrhea. Moist mucous membranes Cardiovascular: Regular rate and rhythm, no murmur, +S1/S2. Respiratory: Lungs CTAB GI: Soft, L-sided tenderness, mild distension. No guarding or rebound tenderness. : No suprapubic tenderness. No flank tenderness bilaterally. Extremities: no edema, no cyanosis, no clubbing. Extremity pulses present Neuro: Grossly nonfocal. Moving all 4 extremities. CN not formally tested but appear grossly intact. Psychiatric: Cooperative, appropriate affect. Results: Labs 06/05/25 04:58 06/05/25 04:58 Labs: Short CBC 06/04/25 Range/Units 09:22 WBC 13.8 H D (3.8-10.6) Thou/mm3 Hgb 12.4 L (13.5-16.0) g/dL Hct 35.7 L (41.0-53.0) % Plt Count 147 (140-440) Thou/mm3 BMP 06/04/25 09:22 Sodium 128 L Potassium 4.7 Chloride 90 L Carbon Dioxide 30.6 BUN 20 Creatinine 1.3 Glucose 114 H Calcium 8.8 Liver Function 06/04/25 Range/Units 09:22 Total Bilirubin 0.5 (0.3-1.2) mg/dL AST 21 (0-34) U/L ALT 18 (10-49) U/L Alkaline Phosphatase 119 H (46-116) U/L Albumin 4.3 (3.4-4.8) gm/dL Urine 06/04/25 Range/Units 11:56 Urine Color Lt-Yellow (Lt Yel-Yel) Urine Clarity Clear (Clear/Hazy) Urine pH 6.5 (5.0-7.0) Ur Specific [place] 1.020 (1.001-1.035) Urine Protein Trace (Neg - Trace) Urine Glucose (UA) Negative (Negative) Quality Measures Quality Measures VTE prophylaxis Advance care planning discussed with:: patient and other (critical care nurse specialist) Medications Home Medications and Allergies Home Medications ?Medication ?Instructions ?Recorded ?Confirmed ?Type acetaminophen 500 mg tablet 650 mg PO Q4H PRN fever or pain 05/18/25 06/05/25 History albuterol sulfate 90 mcg/actuation 1 puff inhalation Q 4H PRN 05/18/25 06/05/25 History aerosol inhaler shortness of breath or wheez ing benzonatate 100 mg capsule 100 mg PO Q8HR PRN cough 06/05/25 History bisacodyl 10 mg rectal suppository 10 mg PA QDAY PRN c onstipation 05/18/25 06/05/25 History cholecalciferol (vitamin D3) 50 50 mcg PO QDAY 5 06/05/25 History mcg (2,000 unit) tablet (Vitamin D3) loratadine 10 mg tablet (Allergy 10 mg PO Q24H 5 06/05/25 History Relief (loratadine)) magnesium hydroxide 400 mg/5 mL 30 ml PO QDAY PRN cons tipation 05/18/25 06/05/25 History oral suspension (Milk of Magnesia) mirabegron 25 mg tablet,extended 25 mg PO QDAY 5 06/05/25 History release 24 hr ibuprofen 600 mg tablet 600 mg PO TID 06/05/2506/05 History sertraline 50 mg tablet 50 mg PO QDAY 06/05/2506/05 History Allergies Allergy/AdvReac Type Severity Reaction Status Date / Time No Known Allergies Allergy Verified 06/04/25 08:54 Visit Medications Acetaminophen (Acetaminophen 325 Mg Tablet) 650 mg PO Q6H PRN PRN Reason: PAIN OR FEVER > 100.4 Stop: 07/04/25 13:00 Enoxaparin Sodium (Enoxaparin Sod Inj 40 Mg/0.4 Ml Syringe) 40 mg SC QDAY ARJUN Stop: 06/19/25 08:59 Levetiracetam (Levetiracetam 250 Mg Tablet) 1,000 mg PO BID ARJUN Stop: 07/04/25 20:59 Lorazepam (Lorazepam 2 Mg/Ml Vial) 2 mg IVP Q5MIN PRN PRN Reason: SEIZURES Stop: 06/09/25 13:00 Ondansetron HCl (Ondansetron Inj 2 Mg/Ml Inj 2 Ml) 4 mg IVP Q6H PRN; Protocol PRN Reason: NAUSEA OR VOMITING Stop: 07/04/25 13:00 Discontinued Medications Levetiracetam (Levetiracetam 250 Mg Tablet) 1,500 mg PO X1 ONE Stop: 06/04/25 09:24 Last Admin: 06/04/25 09:35 Dose: Not Given Levetiracetam (Levetiracetam Inj 100 Mg/Ml Vial 5ml) 1,500 mg IVP X1 ONE Stop: 06/04/25 09:30 Last Admin: 06/04/25 09:33 Dose: 1,500 mg Assessment & Plan Plan 70-year-old male with a history of seizure disorder, cognitive delay, wheel chair bound and C1 fracture with C-spine collar on who presented after having 2 seizures this morning (4 the previous day). Patient admitted for breakthrough seizures (sodium 128). # Breakthrough Seizure Differentials include hyponatremia (recent admit for seizure due to hyponatremia) with levels 128; vs stress; Single tonic?clonic seizure today Now at baseline Likely precipitated by AED reduction and low sodium. Given 1,500 mg Keppra in ED Plan: -Seizure precautions. -Neuro checks q4h. -Neurology consult with Dr. Jesus, appreciate recommendations. -Monitor for recurrent events. 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 recent dose change Chronic hyponatremic Plan: -Fluid restriction 1.8 L/day. -Ordered urine sodium. -Holding Abilify (pending med rec too), pending neuro recs # C1 Fracture (chronic, non-operative) In cervical collar since CT C-spine 05/27: Significant healing of the fracture anterior right ring of C1 extending into the lateral mass on the right C1 Plan: -Keep collar on at all times. -Continue fall precautions. -Manage pain conservatively. # Cognitive Delay # Behavioral Changes Baseline mental delay Behavioral issues led to AED taper and Abilify increase. Plan: -Pending med rec and neuro recs regarding abilify continuation -Reassess need if SIADH confirmed. -Maintain routines; involve caregiver in care. Hospital Management: Disposition: Tele Diet: Regular GI Prophylaxis: none Bowel Prophylaxis: senna, dulcolax prns DVT Prophylaxis: Lovenox 40 mg SC q day CODE STATUS: Full Code Patient plan of care was discussed with the attending physician, Dr. Macedo & senior resident Dr. Mar Flanagan MD PGY-1 Attending Provider Attestation/Addendum I have examined the patient, reviewed labs and imaging findings, discussed the case with the resident(s), and reviewed entered orders. I agree with the plan of care as outlined in this note, with these additional summaries/recommendations: After examination of the patient and review of the clinical data, I feel that this patient needs admission to the hospital for further treatment and evaluation. Dr. Remington MD
[2025-06-04 15:43] VITALS: BP 168/93; PULSE 63; RESP 14; TEMP 36.5; O2SAT 96
[2025-06-04 18:42] LABS: Sodium,Urine Random 33.1 mMol/L (20.0-110.0)
[2025-06-04 20:00] VITALS: BP 126/89; PULSE 64; PULSE 68; RESP 14; TEMP 36.1; O2SAT 99
--- NOTE | 2025-06-04 22:39 | PC.NURSE ---
Contacted Doris Rosario RN at [facility] to verify full code status
[2025-06-04 22:54] VITALS: PULSE 62; RESP 20; O2SAT 99
[2025-06-05] VITALS (9 sets, daily range): BP systolic 96–155; BP diastolic 65–90; PULSE 55–78; RESP 11–20; TEMP 36.2–36.7; O2SAT 95–100; BMI 37.7
[2025-06-05 05:50] LABS: Basophils # (Auto) 0.0 Thou/mm3 (0.0-0.2); Basophils % (Auto) 0 % (0-2.5); Eosinophils # (Auto) 0.0 Thou/mm3 (0.0-0.5); Eosinophils % (Auto) 0 % (0-10); Hematocrit 33.8 % (41.0-53.0); Hemoglobin 11.9 g/dL (13.5-16.0); Immature Granulocytes Auto 0.02 Thou/mm3 (0.00-0.00); Lymphocytes # (Auto) 8.0 Thou/mm3 (1.0-4.8); Lymphocytes % (Auto) 70 % (10-50); Mean Corpuscular HGB Conc 35.2 g/dl (31.0-37.0); Mean Corpuscular Hemoglobin 32.6 pg (25.0-35.0); Mean Corpuscular Volume 93 fL (80-100); Monocytes # (Auto) 0.7 Thou/mm3 (0.0-0.8); Monocytes % (Auto) 6 % (0-12); Neutrophils # (Auto) 2.7 Thou/mm3 (1.8-7.7); Neutrophils % (Auto) 24 % (37-80); Nucleated Red Blood Cell # 0.00 Thou/mm3 (0.00-0.00); Nucleated Red Blood Cell % 0 /100 WBC (0); Platelet Count 131 Thou/mm3 (140-440); RDW Standard Deviation 45.5 fL (35.1-43.9); Red Blood Count 3.65 Miln/mm3 (4.50-5.90); White Blood Count 11.4 Thou/mm3 (3.8-10.6)
[2025-06-05 06:32] LABS: Anion Gap 8 (7-16); BUN/Creatinine Ratio 24 Ratio (12-20); Blood Urea Nitrogen 19 mg/dL (9-23); Calcium 8.7 mg/dL (8.3-10.6); Carbon Dioxide 30.1 mMol/L (20.0-31.0); Cardiac Risk Estimate 2.2 RATIO (4.0-6.7); Chloride 89 mMol/L (98-107); Cholesterol 145 mg/dL (132-200); Creatinine (Component) 0.8 mg/dL (0.6-1.3); Estimated Creatinine Clearance 114.4 mL/min (>60); Glucose 84 mg/dL (74-106); HDL Cholesterol 65 mg/dL (40-60); LDL Cholesterol,Calculated 74 mg/dL (0-130); Magnesium 1.7 mg/dL (1.6-2.6); Osmolality,Calculated 256 (275-295); Phosphorous 4.1 mg/dL (2.4-5.1); Potassium 4.8 mMol/L (3.4-5.1); Sodium 127 mMol/L (136-145); Triglycerides 28 mg/dL (30-150); eGFR > 60 See Note
[2025-06-05 06:51] LABS: Thyroid Stimulating Hormone 1.66 uIU/mL (0.55-4.78)
[2025-06-05] MEDS: MECLIZINE HCL 25 MG TABLET PO (08:16)
[2025-06-05] MEDS: ENOXAPARIN SOD INJ 40 MG/0.4 ML SYRINGE SC (08:30)
--- NOTE | 2025-06-05 11:30 | PD.HHPROG ---
Documentation for date of: 06/05/25 Subjective - Hospitalist Subjective Interval history: Patient seen at bedside. No acute overnight events. Patient endorsing mild dizziness this morning which she reports comes and goes from time to time. No seizure-like activity overnight. He denies headache, chest pain, shortness of breath, nausea/vomiting, cough, abdominal pain, and no urinary or GI complaints at this time. He does endorse chronic neck pain. He states he has been in a c-collar for over a year. Vital signs currently stable. BP 120/70. Pulse 63. Afebrile. Appropriate O2 saturation on room air. Review of Systems Review of Systems Systems Reviewed: All systems reviewed, normal except as documented Exam Vital Signs Temp Pulse Resp BP Pulse Ox O2 Del Method FiO2 97.1 F 63 15 120/70 99 Room Air 06/05/25 08:00 06/05/25 08:00 06/05/25 08:00 06/05/25 08:00 06/05/25 08:00 06/05/25 08:00 06/05/25 06:56 Narrative General: No acute distress; C-spine collar present HEENT: NCAT, EOMI/PERRL, not icteric. External ears normal. No rhinorrhea. Moist mucous membranes Cardiovascular: Regular rate and rhythm, no murmur, +S1/S2. Respiratory: Lungs CTAB GI: Soft, no tenderness to palpation throughout, mild distension. No guarding or rebound tenderness. : No suprapubic tenderness. No flank tenderness bilaterally. Skin: Warm, dry, intact, no obvious rash. Extremities: no edema, no cyanosis, no clubbing. Extremity pulses present Neuro: Grossly nonfocal. Moving all 4 extremities. CN not formally tested but appear grossly intact. Psychiatric: Cooperative, appropriate affect. Objective - Hospitalist Labs Diagram: 06/05/25 04:58 06/05/25 04:58 Labs: Laboratory Results - last 24 hr 06/04/25 06/05/25 11:56 04:58 WBC 11.4 H RBC 3.65 L Hgb 11.9 L Hct 33.8 L MCV 93 MCH 32.6 MCHC 35.2 RDW Std Deviation 45.5 H Plt Count 131 L Neut % (Auto) 24 L Lymph % (Auto) 70 H [place] % (Auto) 6 Eos % (Auto) 0 Baso % (Auto) 0 Neut # (Auto) 2.7 Lymph # (Auto) 8.0 H [place] # (Auto) 0.7 Eos # (Auto) 0.0 Baso # (Auto) 0.0 Immature Gran # (Auto) 0.02 H Absolute Nucleated RBC 0.00 Immature Gran % 0 Nucleated RBC % 0 Sodium 127 L Potassium 4.8 Chloride 89 L Carbon Dioxide 30.1 Anion Gap 8 BUN 19 Creatinine 0.8 D Estim Creat Clear Calc 114.4 eGFR > 60 BUN/Creatinine Ratio 24 H Glucose 84 Calculated Osmolality 256 L Calcium 8.7 Phosphorus 4.1 Magnesium 1.7 Triglycerides 28 L Cholesterol 145 LDL Cholesterol, Calc 74 HDL Cholesterol 65 H Cholesterol/HDL Ratio 2.2 L TSH 1.66 Ur Collection Type Clean Catch Urine Color Lt-Yellow Urine Clarity Clear Urine pH 6.5 Ur Specific [place] 1.020 Urine Protein Trace Urine Glucose (UA) Negative Urine Ketones Negative Urine Blood Negative Urine Nitrite Negative Urine Bilirubin Negative Urine Urobilinogen (Auto) Negative Ur Leukocyte Esterase Negative Urine RBC 4 H Urine WBC 2 Ur Squamous Epith Cells 1 Urine Bacteria None Hyaline Casts < 1 Ur Culture Indicated? Not Indicated Ur Random Sodium 33.1 Assessment & Plan Plan: Patient is a 70-year-old male with a history of seizure disorder, cognitive delay, wheel chair bound and C1 fracture with C-spine collar on, and GERALDO who presented to [facility] emergency department after having 2 seizures this morning (4 the previous day). Patient admitted for breakthrough seizures. #Breakthrough Seizure #Seizure Disorder Etiology of seizure possibly related to hyponatremia versus medication noncompliance ? Head CT negative for acute hemorrhage, mass effect or midline shift Given loading dose 1,500 mg Keppra in ED - Plan: Continue seizure precautions. Continue Keppra 1000 mg p.o. twice daily per neurology recommendations. EEG pending. In-house neurology following, recommendations appreciated. # Hypoosmolar hyponatremia likely 2/2 to SIADH vs medication - On admission: Na 128, serum osm 260, euvolemic Chronic hyponatremicHypo-osmolar hyponatremia likely from SIADH due to Abilify/lung/chronic pain? Plan: Urine lites ordered. Okay to resume home Abilify. Continue home sodium chloride 1 g p.o. daily. Patient's baseline sodium trends between 125 and 130. If worsens we will increase NaCl tablets # Leukocytosis - Plan: Appears chronic and likely reactive. No evidence of infection at this time. Continue to monitor outpatient and if no improvement referral to hematology. Recommend age-appropriate cancer screening outpatient. #SPN - Plan:Single pulmonary nodule noted on chest x-ray 12 mm left lung. Follow-up outpatient with PCP for continued surveillance and management and CT of chest. # C1 Fracture (chronic, non-operative) In cervical collar since CT C-spine 05/27: Significant healing of the fracture anterior right ring of C1 extending into the lateral mass on the right C1 Plan: Keep collar on at all times, Continue fall precautions, Manage pain conservatively. Outpatient follow-up with neurosurgery # Cognitive Delay # Behavioral Changes Baseline mental delay Behavioral issues led to AED taper and Abilify increase. Plan: Continue home Abilify 15 mg p.o. daily Disposition: Tele, pending EEG and titration of antiepileptics Diet: Regular GI Prophylaxis: none Bowel Prophylaxis: senna, dulcolax prns DVT Prophylaxis: Lovenox 40 mg SC q day CODE STATUS: Full Code Dr. Remington MD Time Spent with Patient Time: Total time spent is greater than 50% in coordination of care (as documented) at patient's floor/unit and/or counseling patient: Time with patient: 25 - 35 minutes Reason for Continued Stay Reason for continued stay: further dx testing Quality Measures Quality Measures VTE prophylaxis Advance care planning discussed with:: patient
--- NOTE | 2025-06-05 15:10 | PC.SS ---
Patient is alert/oriented. Patient is devel. delayed and resides at [facility] and has 24 hour care. Patient is wheelchair bound. Admitted for breakthrough seizures. Patient needs assistance with ADL's. Patient's sisterJin camacho and Nellie make all medical decisions and discuss with [facility] nurse. [facility] nurse is Doris Rosario RN @ [phone]. [facility] is involved for added support for patient. Patient is currently on bipap. PCP: Dr. Paulson @ [facility]. Dr. Jesus follows for Neurology care. Dr. Tee-Oil [employer]. [facility] staff at [facility] provides transport. Discharge plan is to return home. Alt medical decision maker: Jin Chapin Pippa, and Nellie Pippa,
[2025-06-06] VITALS (7 sets, daily range): BP systolic 124–157; BP diastolic 72–89; PULSE 60–79; RESP 13–15; TEMP 36–36.7; O2SAT 95–99; BMI 37.8
[2025-06-06 07:08] LABS: Basophils # (Auto) 0.0 Thou/mm3 (0.0-0.2); Basophils % (Auto) 0 % (0-2.5); Eosinophils # (Auto) 0.1 Thou/mm3 (0.0-0.5); Eosinophils % (Auto) 1 % (0-10); Hematocrit 34.8 % (41.0-53.0); Hemoglobin 12.1 g/dL (13.5-16.0); Immature Granulocytes Auto 0.01 Thou/mm3 (0.00-0.00); Lymphocytes # (Auto) 7.4 Thou/mm3 (1.0-4.8); Lymphocytes % (Auto) 70 % (10-50); Mean Corpuscular HGB Conc 34.8 g/dl (31.0-37.0); Mean Corpuscular Hemoglobin 32.5 pg (25.0-35.0); Mean Corpuscular Volume 94 fL (80-100); Monocytes # (Auto) 0.7 Thou/mm3 (0.0-0.8); Monocytes % (Auto) 7 % (0-12); Neutrophils # (Auto) 2.3 Thou/mm3 (1.8-7.7); Neutrophils % (Auto) 22 % (37-80); Nucleated Red Blood Cell # 0.00 Thou/mm3 (0.00-0.00); Nucleated Red Blood Cell % 0 /100 WBC (0); Platelet Count 138 Thou/mm3 (140-440); RDW Standard Deviation 46.1 fL (35.1-43.9); Red Blood Count 3.72 Miln/mm3 (4.50-5.90); White Blood Count 10.5 Thou/mm3 (3.8-10.6)
[2025-06-06 07:25] LABS: Anion Gap 7 (7-16); BUN/Creatinine Ratio 19 Ratio (12-20); Blood Urea Nitrogen 17 mg/dL (9-23); Calcium 9.1 mg/dL (8.3-10.6); Carbon Dioxide 31.1 mMol/L (20.0-31.0); Chloride 91 mMol/L (98-107); Creatinine (Component) 0.9 mg/dL (0.6-1.3); Estimated Creatinine Clearance 101.9 mL/min (>60); Glucose 88 mg/dL (74-106); Magnesium 1.8 mg/dL (1.6-2.6); Osmolality,Calculated 259 (275-295); Phosphorous 3.6 mg/dL (2.4-5.1); Potassium 4.6 mMol/L (3.4-5.1); Sodium 129 mMol/L (136-145); eGFR > 60 See Note
[2025-06-06] MEDS: SODIUM CHLORIDE 1 GM TABLET PO (08:30)
[2025-06-06] MEDS: ENOXAPARIN SOD INJ 40 MG/0.4 ML SYRINGE SC (08:30)
--- NOTE | 2025-06-06 13:25 | ESPR_ITS ---
<Statement entered by Jose Manuel MD - 06/06/25 15:16> No acute overnight events. Seen and examined at bedside and patient resting comfortably in bed. Denies any dizziness, headache, weakness, paresthesias. Vital signs stable as he is on room air and afebrile. Leukocytosis resolved, hemoglobin stable. CHEM panel shows chronic hypoosmolar hyponatremia and restarted home salt tablets. EEG ordered, still needs to be taken. Pending neurology recommendations. Will continue Keppra 1 g twice daily and as needed lorazepam for breakthrough seizures. ----- Note reviewed and agree with care plan as documented. Please refer to the note below for further details. Plan discussed with attending physician Dr. Remington Manuel MD PGY-2 Internal Medicine Documentation for date of: 06/06/25 Subjective Subjective Interval history: NAEO. No seizures overnight or this morning. Patient states continued dizziness after eating again today. EEG ordered, will follow up with neuro Started NaCl tabs Vitals stable Patient denies fever, chest pain, shortness of breath, abdominal pain Exam Vital Signs Temp Pulse Resp BP Pulse Ox O2 Del Method FiO2 97.3 F 73 14 132/75 H 95 Room Air 06/06/25 08:00 06/06/25 08:00 06/06/25 08:00 06/06/25 08:00 06/06/25 08:00 06/06/25 08:00 06/06/25 04:00 Narrative Exam General: No acute distress; A&Ox3; C-spine collar present Skin: Warm, dry, intact, no obvious rash. HENT: NCAT, EOMI/PERRL, not icteric. External ears normal. No rhinorrhea. Moist mucous membranes Cardiovascular: Regular rate and rhythm, no murmur, +S1/S2. Respiratory: Lungs CTAB GI: Soft, non-tender, mild distension. No guarding or rebound tenderness. : No suprapubic tenderness. No flank tenderness bilaterally. Extremities: no edema, no cyanosis, no clubbing. Extremity pulses present Neuro: Grossly nonfocal. Moving all 4 extremities. CN not formally tested but appear grossly intact. Psychiatric: Cooperative, appropriate affect. Objective Labs 06/07/25 05:44 06/07/25 05:44 Labs: Laboratory Results - last 24 hr 06/06/25 05:55 WBC 10.5 RBC 3.72 L Hgb 12.1 L Hct 34.8 L MCV 94 MCH 32.5 MCHC 34.8 RDW Std Deviation 46.1 H Plt Count 138 L Neut % (Auto) 22 L Lymph % (Auto) 70 H [place] % (Auto) 7 Eos % (Auto) 1 Baso % (Auto) 0 Neut # (Auto) 2.3 Lymph # (Auto) 7.4 H [place] # (Auto) 0.7 Eos # (Auto) 0.1 Baso # (Auto) 0.0 Immature Gran # (Auto) 0.01 H Absolute Nucleated RBC 0.00 Immature Gran % 0 Nucleated RBC % 0 Sodium 129 L Potassium 4.6 Chloride 91 L Carbon Dioxide 31.1 H Anion Gap 7 BUN 17 Creatinine 0.9 Estim Creat Clear Calc 101.9 eGFR > 60 BUN/Creatinine Ratio 19 Glucose 88 Calculated Osmolality 259 L Calcium 9.1 Phosphorus 3.6 Magnesium 1.8 Quality Measures Quality Measures VTE prophylaxis Advance care planning discussed with:: patient Assessment & Plan Assessment Current Active Medications: Generic Name Dose Route Start Last Admin Trade Name Freq PRN Reason Stop Dose Admin Acetaminophen 650 mg 06/04/25 13:01 Acetaminophen 325 Mg Tablet PO 07/04/25 13:00 Q6H PRN PAIN OR FEVER > 100.4 Aripiprazole 15 mg 06/05/25 09:00 06/06/25 08:30 Aripiprazole 5 Mg Tablet PO 07/05/25 08:59 15 mg QDAY ARJUN Administration Bisacodyl 5 mg 06/04/25 15:50 Bisacodyl 5 Mg Tabec PO 07/04/25 15:49 QDAY PRN CONSTIPATION Protocol Enoxaparin Sodium 40 mg 06/05/25 09:00 06/06/25 08:30 Enoxaparin Sod Inj 40 Mg/0.4 Ml Syringe SC 06/19/25 08:59 40 mg QDAY ARJUN Administration Hydralazine HCl 10 mg 06/04/25 17:01 Hydralazine Inj 20 Mg/Ml Vial IVP 07/04/25 17:00 Q4H PRN Hypertension Levetiracetam 1,000 mg 06/04/25 21:00 06/06/25 08:30 Levetiracetam 250 Mg Tablet PO 07/04/25 20:59 1,000 mg BID ARJUN Administration Lorazepam 2 mg 06/04/25 13:01 Lorazepam 2 Mg/Ml Vial IVP 06/09/25 13:00 Q5MIN PRN SEIZURES Ondansetron HCl 4 mg 06/04/25 13:01 Ondansetron Inj 2 Mg/Ml Inj 2 Ml IVP 07/04/25 13:00 Q6H PRN NAUSEA OR VOMITING Protocol Sennosides 8.8 mg 06/04/25 15:50 Sennosides Syrup 8.8 Mg/5 Ml Udc PO 07/04/25 15:49 QDAY PRN CONSTIPATION Protocol Sodium Chloride 1 gm 06/06/25 09:00 06/06/25 08:30 Sodium Chloride 1 Gm Tablet PO 07/06/25 08:59 1 gm QDAY ARJUN Administration Plan Patient is a 70-year-old male with a history of seizure disorder, cognitive delay, wheel chair bound and C1 fracture with C-spine collar on, and GERALDO who presented to [facility] emergency department after having 2 seizures this morning (4 the previous day). Patient admitted for breakthrough seizures. #Breakthrough Seizure #Seizure Disorder Etiology of seizure possibly related to hyponatremia versus medication noncompliance ? Head CT negative for acute hemorrhage, mass effect or midline shift Given loading dose 1,500 mg Keppra in ED - Plan: Continue seizure precautions. Continue Keppra 1000 mg p.o. twice daily per neurology recommendations. EEG pending. In-house neurology following, recommendations appreciated. # Hypoosmolar hyponatremia likely 2/2 to SIADH vs medication - On admission: Na 128, serum osm 260, euvolemic Chronic hyponatremicHypo-osmolar hyponatremia likely from SIADH due to Abilify/lung/chronic pain? Plan: Urine lites ordered. Okay to resume home Abilify. Continue home sodium chloride 1 g p.o. daily. Patient's baseline sodium trends between 125 and 130. -Started home salt tablets #Leukocytosis - Plan: Appears chronic and likely reactive. No evidence of infection at this time. Continue to monitor outpatient and if no improvement referral to hematology. Recommend age-appropriate cancer screening outpatient. #SPN - Plan:Single pulmonary nodule noted on chest x-ray 12 mm left lung. Follow-up outpatient with PCP for continued surveillance and management and CT of chest. # C1 Fracture (chronic, non-operative) In cervical collar since CT C-spine 05/27: Significant healing of the fracture anterior right ring of C1 extending into the lateral mass on the right C1 Plan: Keep collar on at all times, Continue fall precautions, Manage pain conservatively. Outpatient follow-up with neurosurgery # Cognitive Delay # Behavioral Changes Baseline mental delay Behavioral issues led to AED taper and Abilify increase. Plan: Continue home Abilify 15 mg p.o. daily Disposition: Tele, pending EEG and titration of antiepileptics Diet: Regular GI Prophylaxis: none Bowel Prophylaxis: senna, dulcolax prns DVT Prophylaxis: Lovenox 40 mg SC q day CODE STATUS: Full Code Patient plan of care was discussed with the attending physician, Dr. Macedo & senior resident Dr. Mar Flanagan MD PGY-1 Attending Provider Attestation/Addendum I have examined the patient, reviewed labs and imaging findings, discussed the case with the resident(s), and reviewed entered orders. I agree with the plan of care as outlined in this note. Dr. Remington MD
--- NOTE | 2025-06-06 13:38 | PD.VPROG1 ---
Telemedicine visit statement This visit was conducted with the use of interactive audio and video telecommunications system that permits real time communication between the patient and the provider. Patient's verbal consent for virtual visit was obtained on 06/06/25 at 1338. Documentation for date of: 06/06/25 Virtual exam Vital Signs Temp Pulse Resp BP Pulse Ox O2 Del Method FiO2 97.3 F 74 14 132/75 H 95 Room Air 25 06/06/25 08:00 06/06/25 12:00 06/06/25 08:00 06/06/25 08:00 06/06/25 08:00 06/06/25 08:00 06/06/25 04:00 Objective Labs 06/06/25 05:55 06/06/25 05:55 Labs: Laboratory Results - last 24 hr 06/06/25 05:55 WBC 10.5 RBC 3.72 L Hgb 12.1 L Hct 34.8 L MCV 94 MCH 32.5 MCHC 34.8 RDW Std Deviation 46.1 H Plt Count 138 L Neut % (Auto) 22 L Lymph % (Auto) 70 H [place] % (Auto) 7 Eos % (Auto) 1 Baso % (Auto) 0 Neut # (Auto) 2.3 Lymph # (Auto) 7.4 H [place] # (Auto) 0.7 Eos # (Auto) 0.1 Baso # (Auto) 0.0 Immature Gran # (Auto) 0.01 H Absolute Nucleated RBC 0.00 Immature Gran % 0 Nucleated RBC % 0 Sodium 129 L Potassium 4.6 Chloride 91 L Carbon Dioxide 31.1 H Anion Gap 7 BUN 17 Creatinine 0.9 Estim Creat Clear Calc 101.9 eGFR > 60 BUN/Creatinine Ratio 19 Glucose 88 Calculated Osmolality 259 L Calcium 9.1 Phosphorus 3.6 Magnesium 1.8
--- NOTE | 2025-06-06 13:39 | PD.NEUROPROG ---
Documentation for date of: 06/05/25 Subjective Subjective Interval history: Patient was seen in telemetry today, c/o lack of sleep and was wondering if he could take some thing to help. No sz reported after admission. Exam - Neurology Vital Signs Temp Pulse Resp BP Pulse Ox O2 Del Method FiO2 97.3 F 74 14 132/75 H 95 Room Air 06/06/25 08:00 06/06/25 12:00 06/06/25 08:00 06/06/25 08:00 06/06/25 08:00 06/06/25 08:00 06/06/25 04:00 Narrative Exam General: Awake and in no acute distress. Answers questions appropriately. With cognitive delay. HEENT: Normocephalic, atraumatic, mucous membranes moist. C-spine collar present. Heart: Regular rate and rhythm, normal S1 and S2, no murmurs. Lungs: Clear to auscultation with no wheezing or crackles. Abdomen: Soft, obese, nondistended, nontender, positive bowel sounds. ?No guarding or rebound tenderness. Neurologic: Alert and oriented x3, no gross neurological deficit, and patient able to move all 4 extremities. Extremities: No edema. Skin: No rash or ecchymoses. Objective Labs 06/07/25 05:44 06/07/25 05:44 Labs: Laboratory Results - last 24 hr 06/06/25 05:55 WBC 10.5 RBC 3.72 L Hgb 12.1 L Hct 34.8 L MCV 94 MCH 32.5 MCHC 34.8 RDW Std Deviation 46.1 H Plt Count 138 L Neut % (Auto) 22 L Lymph % (Auto) 70 H [place] % (Auto) 7 Eos % (Auto) 1 Baso % (Auto) 0 Neut # (Auto) 2.3 Lymph # (Auto) 7.4 H [place] # (Auto) 0.7 Eos # (Auto) 0.1 Baso # (Auto) 0.0 Immature Gran # (Auto) 0.01 H Absolute Nucleated RBC 0.00 Immature Gran % 0 Nucleated RBC % 0 Sodium 129 L Potassium 4.6 Chloride 91 L Carbon Dioxide 31.1 H Anion Gap 7 BUN 17 Creatinine 0.9 Estim Creat Clear Calc 101.9 eGFR > 60 BUN/Creatinine Ratio 19 Glucose 88 Calculated Osmolality 259 L Calcium 9.1 Phosphorus 3.6 Magnesium 1.8 Assessment & Plan Additional Assessment & Plan Additional Plan: 70-year-old male with a history of seizure disorder, cognitive delay, wheelchair bound, and C1 fracture with C-spine collar on who presented to the ED on 06/04/2025 after having 2 seizures this morning with the first one lasting about 7 minutes followed by one that lasted about 15 minutes per caregiver. After being seen in the office patient was recommended by neurology to be admitted to the hospital for observation of intractable partial complex seizures, loading with Keppra and monitoring of sodium level. #Breakthrough intractable partial complex seizures Recent uncontrolled seizures possibly precipitated by Keppra reduction and low sodium. Patient was loaded with 1,500 mg Keppra in ED. -Seizure precautions -Continue Keppra at 1000 mg BID dose -Monitor and correct sodium -EEG #Hypoosmolar euvolemic hyponatremia Appears to be chronic. Differentials include secondary to SIADH, patient on aripiprazole, other medications side effect such as the Keppra. In ED on admission 06/04, Na 128, serum osm 260, euvolemic. Urine sodium is 33.1 which is less indicative of SIADH. Patient has been on sodium tablets once daily. -Agree with the fluid restriction 1.8 L/day -Continue aripiprazole -Continue Keppra at 1000 mg BID -Continue sodium chloride tablets.
--- NOTE | 2025-06-06 17:14 | PD.NEUROPROG ---
Documentation for date of: 06/05/25 Subjective Subjective Interval history: Patient was in telemetry today, c/o dizziness. No sz reported after admission. Exam - Neurology Vital Signs Temp Pulse Resp BP Pulse Ox O2 Del Method FiO2 97.4 F 72 14 157/75 H 96 Room Air 25 06/06/25 16:00 06/06/25 16:00 06/06/25 16:00 06/06/25 16:00 06/06/25 16:00 06/06/25 16:00 06/06/25 04:00 Objective Labs 06/07/25 05:44 06/07/25 05:44 Labs: Laboratory Results - last 24 hr 06/06/25 05:55 WBC 10.5 RBC 3.72 L Hgb 12.1 L Hct 34.8 L MCV 94 MCH 32.5 MCHC 34.8 RDW Std Deviation 46.1 H Plt Count 138 L Neut % (Auto) 22 L Lymph % (Auto) 70 H [place] % (Auto) 7 Eos % (Auto) 1 Baso % (Auto) 0 Neut # (Auto) 2.3 Lymph # (Auto) 7.4 H [place] # (Auto) 0.7 Eos # (Auto) 0.1 Baso # (Auto) 0.0 Immature Gran # (Auto) 0.01 H Absolute Nucleated RBC 0.00 Immature Gran % 0 Nucleated RBC % 0 Sodium 129 L Potassium 4.6 Chloride 91 L Carbon Dioxide 31.1 H Anion Gap 7 BUN 17 Creatinine 0.9 Estim Creat Clear Calc 101.9 eGFR > 60 BUN/Creatinine Ratio 19 Glucose 88 Calculated Osmolality 259 L Calcium 9.1 Phosphorus 3.6 Magnesium 1.8 Assessment & Plan Additional Assessment & Plan Additional Plan: 70-year-old male with a history of seizure disorder, cognitive delay, wheelchair bound, and C1 fracture with C-spine collar on who presented to the ED on 06/04/2025 after having 2 seizures this morning with the first one lasting about 7 minutes followed by one that lasted about 15 minutes per caregiver. After being seen in the office patient was recommended by neurology to be admitted to the hospital for observation of intractable partial complex seizures, loading with Keppra and monitoring of sodium level. #Breakthrough intractable partial complex seizures Recent uncontrolled seizures possibly precipitated by Keppra reduction and low sodium. Patient was loaded with 1,500 mg Keppra in ED. -Seizure precautions -Continue Keppra at 1000 mg BID dose -Monitor and correct sodium -EEG #Hypoosmolar euvolemic hyponatremia Appears to be chronic. Differentials include secondary to SIADH, patient on aripiprazole, other medications side effect such as the Keppra. In ED on admission 06/04, Na 128, serum osm 260, euvolemic. Urine sodium is 33.1 which is less indicative of SIADH. Patient has been on sodium tablets once daily. -Agree with the fluid restriction 1.8 L/day -Continue aripiprazole -Continue Keppra at 1000 mg BID -Continue sodium chloride tablets.
[2025-06-07] VITALS (8 sets, daily range): BP systolic 123–154; BP diastolic 75–94; PULSE 63–86; RESP 13–17; TEMP 36.1–36.4; O2SAT 96–100; BMI 36.6
[2025-06-07 05:59] LABS: Basophils # (Auto) 0.0 Thou/mm3 (0.0-0.2); Basophils % (Auto) 0 % (0-2.5); Eosinophils # (Auto) 0.1 Thou/mm3 (0.0-0.5); Eosinophils % (Auto) 1 % (0-10); Hematocrit 35.5 % (41.0-53.0); Hemoglobin 12.3 g/dL (13.5-16.0); Immature Granulocytes Auto 0.02 Thou/mm3 (0.00-0.00); Lymphocytes # (Auto) 7.4 Thou/mm3 (1.0-4.8); Lymphocytes % (Auto) 67 % (10-50); Mean Corpuscular HGB Conc 34.6 g/dl (31.0-37.0); Mean Corpuscular Hemoglobin 32.5 pg (25.0-35.0); Mean Corpuscular Volume 94 fL (80-100); Monocytes # (Auto) 0.7 Thou/mm3 (0.0-0.8); Monocytes % (Auto) 6 % (0-12); Neutrophils # (Auto) 2.8 Thou/mm3 (1.8-7.7); Neutrophils % (Auto) 25 % (37-80); Nucleated Red Blood Cell # 0.00 Thou/mm3 (0.00-0.00); Nucleated Red Blood Cell % 0 /100 WBC (0); Platelet Count 138 Thou/mm3 (140-440); RDW Standard Deviation 46.5 fL (35.1-43.9); Red Blood Count 3.79 Miln/mm3 (4.50-5.90); White Blood Count 11.0 Thou/mm3 (3.8-10.6)
[2025-06-07 06:17] LABS: Anion Gap 7 (7-16); BUN/Creatinine Ratio 18 Ratio (12-20); Blood Urea Nitrogen 14 mg/dL (9-23); Calcium 9.0 mg/dL (8.3-10.6); Carbon Dioxide 31.5 mMol/L (20.0-31.0); Chloride 96 mMol/L (98-107); Creatinine (Component) 0.8 mg/dL (0.6-1.3); Estimated Creatinine Clearance 112.7 mL/min (>60); Glucose 98 mg/dL (74-106); Magnesium 1.7 mg/dL (1.6-2.6); Osmolality,Calculated 268 (275-295); Phosphorous 3.6 mg/dL (2.4-5.1); Potassium 4.3 mMol/L (3.4-5.1); Sodium 134 mMol/L (136-145); eGFR > 60 See Note
[2025-06-07 06:22] LABS: Path Review Blood Smear Sent to Pathologist
[2025-06-07] MEDS: SODIUM CHLORIDE 1 GM TABLET PO (08:10)
[2025-06-07] MEDS: ENOXAPARIN SOD INJ 40 MG/0.4 ML SYRINGE SC (08:10)
[2025-06-07] MEDS: ACETAMINOPHEN 325 MG TABLET 650 MG PO (09:07)
--- NOTE | 2025-06-07 10:01 | XR_ITS ---
Examination: CT chest, without intravenous contrast. Sagittal and coronal 2-D reconstructions. Exam date and time: June 07, 2025, 1427 hours INDICATIONS: 12 mm nodule in the left midlung on chest x-ray June 04, 2025 CTDI:vol (mGy) 20.2 2 DLP: (mGycm) 685 Technique: Multiple 3.0 mm axial sections of the chest to been obtained. Bone and lung density settings are obtained. Sagittal and coronal 2-D reconstructions have been obtained. Low dose protocols were performed. One or more of the following dose reduction techniques were used; automated exposure control, adjustment of the mA and/or KV according to patient size, use of iterative reconstruction technique. Findings: No thoracic aortic aneurysm dilatation Pulmonary artery segments are not enlarged No paratracheal tracheobronchial or bronchopulmonary adenopathy. 3 mm pulmonary nodule right upper lobe image 87 No pneumonia or pulmonary edema Small left pleural effusion No visualized liver or splenic lesion No pancreatic mass No renal calculi Moderate osteopenia with severe thoracolumbar levoscoliosis IMPRESSION: 3 mm pulmonary nodule right upper lobe, with the studies baseline recommend 6-month follow-up CT chest without contrast
--- NOTE | 2025-06-07 16:06 | ESPR_ITS ---
<Statement entered by Jose Manuel MD - 06/07/25 16:53> No acute overnight events. Seen and examined at bedside and patient does not have any complaints at this time. Vital signs stable. CBC shows WBC of 11 and stable hemoglobin. CHEM panel showing improving hyponatremia but otherwise largely unremarkable. Pending EEG and neurorecommendations and will follow-up. ----- Note reviewed and agree with care plan as documented. Please refer to the note below for further details. Plan discussed with attending physician Dr. Remington Manuel MD PGY-2 Internal Medicine Documentation for date of: 06/07/25 Subjective Subjective Interval history: NAEO. No seizures overnight or this morning. Patient states occasional mild dizziness with head movements today EEG ordered, will follow up with neuro Vitals stable Patient denies fever, chest pain, shortness of breath, abdominal pain Exam Vital Signs Temp Pulse Resp BP Pulse Ox O2 Del Method FiO2 97.2 F 70 15 152/94 H 99 Room Air 06/07/25 12:00 06/07/25 12:06/07/25 12:06/07/25 12:06/07/25 12:06/07/25 12:06/07/25 04:00 Narrative Exam General: No acute distress; A&Ox3; C-spine collar present Skin: Warm, dry, intact, no obvious rash. HENT: NCAT, EOMI/PERRL, not icteric. External ears normal. No rhinorrhea. Moist mucous membranes Cardiovascular: Regular rate and rhythm, no murmur, +S1/S2. Respiratory: Lungs CTAB GI: Soft, non-tender, mild distension. No guarding or rebound tenderness. : No suprapubic tenderness. No flank tenderness bilaterally. Extremities: no edema, no cyanosis, no clubbing. Extremity pulses present Neuro: Grossly nonfocal. Moving all 4 extremities. CN not formally tested but appear grossly intact. Psychiatric: Cooperative, appropriate affect. Objective Labs 06/08/25 05:15 06/08/25 05:15 Labs: Laboratory Results - last 24 hr 06/07/25 05:44 WBC 11.0 H RBC 3.79 L Hgb 12.3 L Hct 35.5 L MCV 94 MCH 32.5 MCHC 34.6 RDW Std Deviation 46.5 H Plt Count 138 L Neut % (Auto) 25 L Lymph % (Auto) 67 H [place] % (Auto) 6 Eos % (Auto) 1 Baso % (Auto) 0 Neut # (Auto) 2.8 Lymph # (Auto) 7.4 H [place] # (Auto) 0.7 Eos # (Auto) 0.1 Baso # (Auto) 0.0 Immature Gran # (Auto) 0.02 H Absolute Nucleated RBC 0.00 Immature Gran % 0 Nucleated RBC % 0 Smear Path Review Sent to Pathologist Sodium 134 L Potassium 4.3 Chloride 96 L Carbon Dioxide 31.5 H Anion Gap 7 BUN 14 Creatinine 0.8 Estim Creat Clear Calc 112.7 eGFR > 60 BUN/Creatinine Ratio 18 Glucose 98 Calculated Osmolality 268 L Calcium 9.0 Phosphorus 3.6 Magnesium 1.7 Quality Measures Quality Measures VTE prophylaxis Advance care planning discussed with:: patient Assessment & Plan Assessment Current Active Medications: Generic Name Dose Route Start Last Admin Trade Name Freq PRN Reason Stop Dose Admin Acetaminophen 650 mg 06/04/25 13:01 06/07/25 09:07 Acetaminophen 325 Mg Tablet PO 07/04/25 13:00 650 mg Q6H PRN Administration PAIN OR FEVER > 100.4 Aripiprazole 15 mg 06/05/25 09:00 06/07/25 08:10 Aripiprazole 5 Mg Tablet PO 07/05/25 08:59 15 mg QDAY ARJUN Administration Bisacodyl 5 mg 06/04/25 15:50 Bisacodyl 5 Mg Tabec PO 07/04/25 15:49 QDAY PRN CONSTIPATION Protocol Enoxaparin Sodium 40 mg 06/05/25 09:00 06/07/25 08:10 Enoxaparin Sod Inj 40 Mg/0.4 Ml Syringe SC 06/19/25 08:59 40 mg QDAY ARJUN Administration Hydralazine HCl 10 mg 06/04/25 17:01 Hydralazine Inj 20 Mg/Ml Vial IVP 07/04/25 17:00 Q4H PRN Hypertension Levetiracetam 1,000 mg 06/04/25 21:00 06/07/25 08:10 Levetiracetam 250 Mg Tablet PO 07/04/25 20:59 1,000 mg BID ARJUN Administration Lorazepam 2 mg 06/04/25 13:01 Lorazepam 2 Mg/Ml Vial IVP 06/09/25 13:00 Q5MIN PRN SEIZURES Ondansetron HCl 4 mg 06/04/25 13:01 Ondansetron Inj 2 Mg/Ml Inj 2 Ml IVP 07/04/25 13:00 Q6H PRN NAUSEA OR VOMITING Protocol Sennosides 8.8 mg 06/04/25 15:50 Sennosides Syrup 8.8 Mg/5 Ml Udc PO 07/04/25 15:49 QDAY PRN CONSTIPATION Protocol Sodium Chloride 1 gm 06/06/25 09:00 06/07/25 08:10 Sodium Chloride 1 Gm Tablet PO 07/06/25 08:59 1 gm QDAY ARJUN Administration Plan Patient is a 70-year-old male with a history of seizure disorder, cognitive delay, wheel chair bound and C1 fracture with C-spine collar on, and GERALDO who presented to [facility] emergency department after having 2 seizures this morning (4 the previous day). Patient admitted for breakthrough seizures. #Breakthrough Seizure #Seizure Disorder Etiology of seizure possibly related to hyponatremia versus medication noncompliance ? Head CT negative for acute hemorrhage, mass effect or midline shift Given loading dose 1,500 mg Keppra in ED Plan: -Continue seizure precautions. -Continue Keppra 1000 mg p.o. twice daily per neurology recommendations. -EEG pending. In-house neurology following, recommendations appreciated. # Hypoosmolar hyponatremia likely 2/2 to SIADH vs medication - On admission: Na 128, serum osm 260, euvolemic Chronic hyponatremicHypo-osmolar hyponatremia likely from SIADH due to Abilify/lung/chronic pain? Urine e-lytes normal (Na) Patient's baseline sodium trends between 125 and 130. Plan: -resumed home Abilify. -Continue home sodium chloride 1 g p.o. daily. -Fluid restriction 1.8 L -Started home salt tablets #Leukocytosis Appears chronic and likely reactive. No evidence of infection at this time. Plan: -Continue to monitor outpatient and if no improvement referral to hematology. -Recommend age-appropriate cancer screening outpatient. #SPN Single pulmonary nodule noted on chest x-ray 12 mm left lung. Plan: -Follow-up outpatient with PCP for continued surveillance and management and CT of chest. -CT Chest ordered, will follow up read #C1 Fracture (chronic, non-operative) In cervical collar since CT C-spine 05/27: Significant healing of the fracture anterior right ring of C1 extending into the lateral mass on the right C1 Plan: -Keep collar on at all times -Continue fall precautions -Manage pain conservatively -Outpatient follow-up with neurosurgery #Cognitive Delay #Behavioral Changes Baseline mental delay Behavioral issues led to AED taper and Abilify increase. Plan: Continue home Abilify 15 mg p.o. daily Disposition: Tele, pending EEG and titration of antiepileptics Diet: Regular GI Prophylaxis: none Bowel Prophylaxis: senna, dulcolax prns DVT Prophylaxis: Lovenox 40 mg SC q day CODE STATUS: Full Code Patient plan of care was discussed with the attending physician, Dr. Macedo & senior resident Dr. Mar Flanagan MD PGY-1 Attending Provider Attestation/Addendum I have examined the patient, reviewed labs and imaging findings, discussed the case with the resident(s), and reviewed entered orders. I agree with the plan of care as outlined in this note. Dr. Remington MD
--- NOTE | 2025-06-07 23:54 | PD.NEUROPROG ---
Documentation for date of: 06/07/25 Subjective Subjective Interval history: Patient was in telemetry today, No sz reported after admission. slept well yesterday, anxious to be discharged home. Exam - Neurology Vital Signs Temp Pulse Resp BP Pulse Ox O2 Del Method FiO2 97.6 F 65 17 154/84 H 96 Room Air 06/07/25 23:03 06/07/25 23:03 06/07/25 23:03 06/07/25 23:03 06/07/25 23:03 06/07/25 23:03 06/07/25 04:00 Narrative Exam General: Awake and in no acute distress. Answers questions appropriately. With cognitive delay. HEENT: Normocephalic, atraumatic, mucous membranes moist. C-spine collar present. Heart: Regular rate and rhythm, normal S1 and S2, no murmurs. Lungs: Clear to auscultation with no wheezing or crackles. Abdomen: Soft, obese, nondistended, nontender, positive bowel sounds. ?No guarding or rebound tenderness. Neurologic: Alert and oriented x3, no gross neurological deficit, and patient able to move all 4 extremities. Extremities: No edema. Skin: No rash or ecchymoses. Objective Labs 06/07/25 05:44 06/07/25 05:44 Labs: Laboratory Results - last 24 hr 06/07/25 05:44 WBC 11.0 H RBC 3.79 L Hgb 12.3 L Hct 35.5 L MCV 94 MCH 32.5 MCHC 34.6 RDW Std Deviation 46.5 H Plt Count 138 L Neut % (Auto) 25 L Lymph % (Auto) 67 H [place] % (Auto) 6 Eos % (Auto) 1 Baso % (Auto) 0 Neut # (Auto) 2.8 Lymph # (Auto) 7.4 H [place] # (Auto) 0.7 Eos # (Auto) 0.1 Baso # (Auto) 0.0 Immature Gran # (Auto) 0.02 H Absolute Nucleated RBC 0.00 Immature Gran % 0 Nucleated RBC % 0 Smear Path Review Sent to Pathologist Sodium 134 L Potassium 4.3 Chloride 96 L Carbon Dioxide 31.5 H Anion Gap 7 BUN 14 Creatinine 0.8 Estim Creat Clear Calc 112.7 eGFR > 60 BUN/Creatinine Ratio 18 Glucose 98 Calculated Osmolality 268 L Calcium 9.0 Phosphorus 3.6 Magnesium 1.7 Assessment & Plan Additional Assessment & Plan Additional Plan: 70-year-old male with a history of seizure disorder, cognitive delay, wheelchair bound, and C1 fracture with C-spine collar on who presented to the ED on 06/04/2025 after having 2 seizures this morning with the first one lasting about 7 minutes followed by one that lasted about 15 minutes per caregiver. After being seen in the office patient was recommended by neurology to be admitted to the hospital for observation of intractable partial complex seizures, loading with Keppra and monitoring of sodium level. #Breakthrough intractable partial complex seizures Recent uncontrolled seizures possibly precipitated by Keppra reduction and low sodium. Patient was loaded with 1,500 mg Keppra in ED. -Seizure precautions -Continue Keppra at 1000 mg BID dose -Monitor and correct sodium -We can disregard the EEG for now. I will get it done as an outpatient. -Stable from neurology stand point o be discharged. #Hypoosmolar euvolemic hyponatremia Appears to be chronic. Differentials include secondary to SIADH, patient on aripiprazole, other medications side effect such as the Keppra. In ED on admission 06/04, Na 128, serum osm 260, euvolemic. Urine sodium is 33.1 which is less indicative of SIADH. Patient has been on sodium tablets once daily. -Agree with the fluid restriction 1.8 L/day -Continue aripiprazole -Continue Keppra at 1000 mg BID -Continue sodium chloride tablets.
[2025-06-08 00:14] VITALS: PULSE 62; RESP 12; O2SAT 99
[2025-06-08] MEDS: ACETAMINOPHEN 325 MG TABLET 650 MG PO (02:15)
[2025-06-08 03:25] VITALS: BP 147/82; PULSE 57; RESP 15; TEMP 36.6; O2SAT 94
[2025-06-08 04:00] VITALS: PULSE 59
[2025-06-08 06:00] VITALS: BMI 36.3
[2025-06-08 06:03] LABS: Basophils # (Auto) 0.0 Thou/mm3 (0.0-0.2); Basophils % (Auto) 0 % (0-2.5); Eosinophils # (Auto) 0.1 Thou/mm3 (0.0-0.5); Eosinophils % (Auto) 1 % (0-10); Hematocrit 34.0 % (41.0-53.0); Hemoglobin 11.6 g/dL (13.5-16.0); Immature Granulocytes Auto 0.01 Thou/mm3 (0.00-0.00); Lymphocytes # (Auto) 6.8 Thou/mm3 (1.0-4.8); Lymphocytes % (Auto) 63 % (10-50); Mean Corpuscular HGB Conc 34.1 g/dl (31.0-37.0); Mean Corpuscular Hemoglobin 32.3 pg (25.0-35.0); Mean Corpuscular Volume 95 fL (80-100); Monocytes # (Auto) 0.6 Thou/mm3 (0.0-0.8); Monocytes % (Auto) 6 % (0-12); Neutrophils # (Auto) 3.2 Thou/mm3 (1.8-7.7); Neutrophils % (Auto) 30 % (37-80); Nucleated Red Blood Cell # 0.00 Thou/mm3 (0.00-0.00); Nucleated Red Blood Cell % 0 /100 WBC (0); Platelet Count 152 Thou/mm3 (140-440); RDW Standard Deviation 46.5 fL (35.1-43.9); Red Blood Count 3.59 Miln/mm3 (4.50-5.90); White Blood Count 10.8 Thou/mm3 (3.8-10.6)
[2025-06-08 06:34] LABS: Alanine Aminotransferase 29 U/L (10-49); Albumin, Serum 3.9 gm/dL (3.4-4.8); Albumin/Globulin Ratio 1.4 (1.2-2.2); Alkaline Phosphatase 117 U/L (46-116); Anion Gap 6 (7-16); Aspartate Amino Transferase 31 U/L (0-34); BUN/Creatinine Ratio 19 Ratio (12-20); Bilirubin,Total 0.4 mg/dL (0.3-1.2); Blood Urea Nitrogen 15 mg/dL (9-23); Calcium 8.9 mg/dL (8.3-10.6); Calcium (Corrected) 9.0 mg/dL (8.5-10.1); Carbon Dioxide 30.6 mMol/L (20.0-31.0); Chloride 97 mMol/L (98-107); Creatinine (Component) 0.8 mg/dL (0.6-1.3); Estimated Creatinine Clearance 112.3 mL/min (>60); Globulin 2.7 gm/dL (2.3-3.5); Glucose 95 mg/dL (74-106); Magnesium 1.7 mg/dL (1.6-2.6); Osmolality,Calculated 269 (275-295); Phosphorous 4.0 mg/dL (2.4-5.1); Potassium 4.4 mMol/L (3.4-5.1); Sodium 134 mMol/L (136-145); Total Protein 6.6 gm/dL (5.7-8.2); eGFR > 60 See Note
[2025-06-08 08:00] VITALS: BP 133/80; PULSE 59; RESP 13; TEMP 36.1; O2SAT 96
[2025-06-08] MEDS: SODIUM CHLORIDE 1 GM TABLET PO (08:07)
[2025-06-08] MEDS: ENOXAPARIN SOD INJ 40 MG/0.4 ML SYRINGE SC (08:07)
--- NOTE | 2025-06-08 09:25 | ESDS_ITS ---
<Statement entered by Jose Manuel MD - 06/08/25 12:56> Note reviewed and agree with care plan as documented. Please refer to the note below for further details. Plan discussed with attending physician Dr. Remington Manuel MD PGY-2 Internal Medicine Planned Discharge Date 06/08/25 DS: Providers Provider Date of admission: 06/04/25 13:06 Primary care physician: Monty Paulson MD Admitting Provider: Kalia Macedo MD Attending Provider on Admission: Kalia Macedo MD Consults: 06/04/25 09:00 Consult to Neurology / Tele-Neurology Stat Comment: Seizure Consulting Provider: Cristobal Jesus Attending Provider on DC: Robe Mccauley MD Discharging Provider: Robe Mccauley MD DS: Diagnosis Problem List Completed Was Problem List Reviewed/Reconciled?: Yes Hospital Course Hospital Course Hospital course: Mr. Das is a 70 year old male w/ a PMH significant for seizure disorder, cognitive delay, c1 fracture w/ c collar in place and chronic hyponatremia who came in for seizure on 06/04/2025. Came to ED after witnessed seizure 2x by caregiver, first 7 mins followed by 15 mins. Additionally 06/03 pt had 4 seizure s [id number] with loss of urination and tongue biting, but was not brought to the ED then. Records are significant for a recent discharge for hyponatremia- induced seizures, where medication reconciliation had resumed his Keppra 500mg BID and added melatonin 6mg nightly for sleep. In the ED, Keppra loading dose 1500 was given in ED, and maintenance dose was doubled to 1000mg PO BID. Labs were significant for a hypoosmolar hyponatremia, likely to SIAD vs medication. Additionally, scans revealed a single pulmonary nodule on CXR ~12mm left lung. Previous records of a CT c-spine 05/27 denoted a significant healing of the fracture of the anterior right C1. CT for further evaluation of lung nodule revealed a 3mm nodule. Patient admitted for seizure monitoring and tx as well as hyponatremia man agement. Put on fluid restrictions for hyponatremia. Throughout his admission neurology had been following closely and he has been without seizures on new dose Keppra 1000 mg BID PO. Additionally, his hyponatremia has since resolved. On Day 4 of admission, patient was safely discharged home on new medication regimen, clearly denoted and explained with instructions to follow up with PCP and Neurology, Dr. Jesus in two weeks. Pt is to get an EEG as an outpatient and follow up with PCP for further evaluation of incidental pulmonary nodule. Discharge diagnoses #Breakthrough Seizure #Seizure Disorder # Hypoosmolar hyponatremia #Leukocytosis #SPN #C1 Fracture (chronic, non-operative) #Cognitive Delay #Behavioral Changes Discharge instructions Please take your medications as prescribed Your EEG will need to be scheduled outpatient with Dr. Cristobal Jesus Please see neurosurgery outpatient for your cervical fracture. Until then, please keep your c-collar on at all times For any worsening symptoms of headache, nausea, blurry vision or any acute concerns please return to the emergency department Please be adherent to your antiseizure medications - your new Keppra(leviteracetam) dose is to help prevent seizures Please follow up with your primary care physician within 2 weeks of discharge Please follow up with Dr. Cristobal Jesus in two weeks of discharge There was a 3mm pulmonary nodule found on your CT, please follow up in 6 months for a repeat Chest CT scan, with referral from your primary care provider Status at Discharge Cognitive/behavioral status at discharge: stable at baseline Time Spent with Patient Time attestation: Total time spent providing and/or coordinating discharge services: Time spent: Greater than 30 minutes Exam Vital Signs Temp Pulse Resp BP Pulse Ox O2 Del Method FiO2 96.9 F 59 L 13 133/80 H 96 Room Air 06/08/25 08:00 06/08/25 04:00 06/08/25 08:00 06/08/25 08:00 06/08/25 08:00 06/08/25 08:00 06/08/25 00:14 Narrative Exam General: alert and oriented to self/place/year, no acute distress, able to speak full sentences; cognitive delay but AxOx4 GCS 14 HEENT: NC/AT, mucous membranes moist, bilateral sclera anicteric Cardiovascular: regular rate and rhythm, S1/S2 present, no murmurs appreciated Pulmonary: clear to auscultation bilaterally, no rales/rhonchi/wheezes Abdominal: soft, nontender, present bowel sounds Musculoskeletal: no peripheral edema Skin: Warm, well-perfused Discharge Plan Plan Patient Disposition: Xfer Skilled Nsg Fac (SNF) Disposition Comment: [facility] Plan Goals: Please take your medications as prescribed Your EEG will need to be scheduled outpatient with Dr. Cristobal Jesus Please see neurosurgery outpatient for your cervical fracture. Until then, please keep your c-collar on at all times For any worsening symptoms of headache, nausea, blurry vision or any acute concerns please return to the emergency department Please be adherent to your antiseizure medications - your new Keppra(leviteracetam) dose is to help prevent seizures Please follow up with your primary care physician within 2 weeks of discharge Please follow up with Dr. Cristobal Jesus in two weeks of discharge There was a 3mm pulmonary nodule found on your CT, please follow up in 6 months for a repeat Chest CT scan, with referral from your primary care provider Prescriptions/Referrals Prescriptions/Med Rec: New levetiracetam 1,000 mg tablet 1,000 mg PO BID 30 Days Qty: 60 0RF aripiprazole 15 mg tablet 30 mg PO QDAY 30 Days Qty: 60 0RF Continued sertraline 50 mg tablet 50 mg PO QDAY ibuprofen 600 mg tablet 600 mg PO TID cholecalciferol (vitamin D3) [Vitamin D3] 50 mcg (2,000 unit) tablet 50 mcg PO QDAY mirabegron 25 mg tablet extended release 24 hr 25 mg PO QDAY loratadine [Allergy Relief (loratadine)] 10 mg tablet 10 mg PO Q24H magnesium hydroxide [Milk of Magnesia] 400 mg/5 mL suspension 30 ml PO QDAY PRN (Reason: constipation) acetaminophen 500 mg tablet 650 mg PO Q4H PRN (Reason: fever or pain) bisacodyl 10 mg suppository 10 mg NC QDAY PRN (Reason: constipation) benzonatate 100 mg capsule 100 mg PO Q8HR PRN (Reason: cough) albuterol sulfate 90 mcg/actuation HFA aerosol inhaler 1 puff INHALATION Q4H PRN (Reason: shortness of breath or wheezing) sodium chloride 1,000 mg tablet,soluble 1,000 mg PO QDAY Qty: 10 0RF Discontinued levetiracetam [Keppra] 1,000 mg tablet 500 mg PO BID Qty: 60 0RF aripiprazole 5 mg tablet 15 mg PO QDAY Qty: 10 0RF Referrals: Monty Paulson MD [Primary Care Provider, Family Practice] Patient/Caregiver Discharge Instructions Discharge Activity: activity as tolerated Education Materials: Self-Care for Epilepsy, Discharge Instructions for Epilepsy Print Language: Faroese Stand Alone Forms: Clara Award Info., Patient Portal Info Letter Discharge Order Discharge Orders: Discharge (Routine); Ordered 06/08/25 Ordered By: Jose Manuel Quality Discharge Quality Measures none MD Attestestation MD Attestation I have examined the patient, reviewed labs and imaging findings, discussed the case with the resident(s), and reviewed entered orders. I agree with the plan of care as outlined in this note. Time Spent: [address] Remington MD
[2025-06-08 12:00] VITALS: BP 123/79; PULSE 70; RESP 19; TEMP 36.1; O2SAT 96
[2025-06-08 12:29] VITALS: BP 138/82; PULSE 74; RESP 20; TEMP 36; O2SAT 96
== END 2025-06-08 12:02 | disposition skilled nursing facility (03) | DRG 101 ==
LOC: SERX 11:16 → SERHOLD 13:50 → S2NX 16:11
PROVIDERS: Admitting Provider Student in an Organized Health Care Education/Training Program; PCP Family Medicine; Visit Provider Student in an Organized Health Care Education/Training Program
DX: G40.209 Localization-related (focal) (partial) symptomatic epilepsy and epileptic syndromes with complex partial seizures, not intractable, without status epilepticus (principal); E87.1 Hypo-osmolality and hyponatremia; F91.9 Conduct disorder, unspecified; Z99.3 Dependence on wheelchair; D64.9 Anemia, unspecified; G89.29 Other chronic pain; Z79.899 Other long term (current) drug therapy
CPT/HCPCS: 36415; 71045; 71250; 80048; 80053; 80061; 81001; 83735; 84100; 84300; 84443; 85025; 87081; 87502; 87635; 94660; 96374; 99283; J1650; J1953; A9270